=== PATIENT | female | born 1950 | race Caucasian/White ===

== ENCOUNTER 2016-06-01 17:43 | Inpatient (IN) | payer BC, MEDICARE ==
[2016-06-01] MEDS ORDERED: SODIUM CHLORIDE 0.9% 1,000 ML IV ONE (18:50)
[2016-06-01] MEDS ORDERED: METOCLOPRAMIDE 5 MG/ML 2 ML VIAL IVP STA (18:50)
--- NOTE | 2016-06-01 18:53 | ED ---
Nausea/Vomiting/Diarrhea HPI - General Source: patient, RN notes reviewed Mode of arrival: ambulatory Limitations: no limitations <Stephanie Nash - Last Filed: 06/01/16 22:25> <Kiel Juares - Last Filed: 06/01/16 22:52> - General Chief complaint: Nausea/Vomiting/Diarrhea Stated complaint: WEAKNESS, VOMITING X MONTHS, LOST 30 LBS Time Seen by Provider: 06/01/16 18:37 - History of Present Illness Initial comments: Patient is a 66-year-old female presents emergency room for evaluation of vomiting. Patient states been having episodes of nausea and vomiting since September. Patient states follow-up with her primary care provider. Patient states that at lab work done an ultrasound and they cannot figure out what's going on. Patient states she is improved with her primary care provider again next week. Patient states on her symptoms became worse. Patient states every time she swallows anything she throws it back up. Patient states she vomits up white foam. Patient denies stomach pain or chest pain. Patient states every time she vomits she has pain in her bilateral ovary area. Patient states she had tubal ligation done a few years ago. Patient denies pain or burning during urination, trouble urinating or blood in urine. Patient states she's lost 30 pounds since September. Patient states she feels weak all over. Patient denies fevers or chills. Patient is being prescribed any medication for this issue. (Stephanie Nash) - Related Data Home Medications Medication Instructions Recorded Confirmed Aspirin [Adult Low Dose Aspirin EC] 81 mg PO DAILY 06/01/16 06/01/16 Cholecalciferol [Vitamin D3] 400 unit PO DAILY 06/01/16 06/01/16 Sertraline [Zoloft] 100 mg PO DAILY 06/01/16 06/01/16 Allergies Allergy/AdvReac Type Severity Reaction Status Date / Time codeine AdvReac MIGRAINE Verified 06/01/16 19:23 Review of Systems ROS Other: All systems not noted in ROS Statement are negative. <Stephanie Nash - Last Filed: 06/01/16 22:25> ROS Other: All systems not noted in ROS Statement are negative. <Kiel Juares - Last Filed: 06/01/16 22:52> ROS Statement: Those systems with pertinent positive or pertinent negative responses have been documented in the HPI. Past Medical History Past Medical History: No Reported History History of Any Multi-Drug Resistant Organisms: None Reported Past Surgical History: Back Surgery Additional Past Surgical History / Comment(s): left knee replacement Past Psychological History: Depression Smoking Status: Current every day smoker Past Alcohol Use History: None Reported Past Drug Use History: None Reported <Stephanie Nash Terell - Last Filed: 06/01/16 22:25> General Exam Limitations: no limitations General appearance: alert, in no apparent distress Head exam: Present: atraumatic, normocephalic, normal inspection Eye exam: Present: normal appearance ENT exam: Present: normal exam Neck exam: Present: normal inspection Respiratory exam: Present: normal lung sounds bilaterally. Absent: respiratory distress Cardiovascular Exam: Present: regular rate, normal rhythm, normal heart sounds GI/Abdominal exam: Present: soft, tenderness (RLQ, LLQ), normal bowel sounds. Absent: distended, guarding, rebound, rigid Extremities exam: Present: normal inspection Back exam: Present: normal inspection Neurological exam: Present: alert, oriented X3, CN II-XII intact, normal gait Psychiatric exam: Present: normal affect, normal mood Skin exam: Present: warm, dry, intact, normal color. Absent: rash <Gemini Nashra Terell - Last Filed: 06/01/16 22:25> General appearance: alert, in no apparent distress Head exam: Present: atraumatic, normocephalic, normal inspection Eye exam: Present: normal appearance, PERRL, EOMI. Absent: scleral icterus, conjunctival injection, periorbital swelling ENT exam: Present: mucous membranes dry Neck exam: Present: normal inspection. Absent: tenderness, meningismus, lymphadenopathy Respiratory exam: Present: normal lung sounds bilaterally. Absent: respiratory distress, wheezes, rales, rhonchi, stridor Cardiovascular Exam: Present: regular rate, normal rhythm, normal heart sounds. Absent: systolic murmur, diastolic murmur, rubs, gallop, clicks GI/Abdominal exam: Present: soft, tenderness (Generalized), normal bowel sounds. Absent: distended, guarding, rebound, rigid Extremities exam: Present: normal inspection, full ROM, normal capillary refill. Absent: tenderness, pedal edema, joint swelling, calf tenderness Back exam: Present: normal inspection Neurological exam: Present: alert, oriented X3, CN II-XII intact Psychiatric exam: Present: normal affect, normal mood Skin exam: Present: warm, dry, intact, normal color. Absent: rash <Kiel Juares - Last Filed: 06/01/16 22:52> - General Exam Comments Initial Comments: Sitting in exam room, no acute distress. (Stephanie Nash) Course <Stephanie Nash - Last Filed: 06/01/16 22:25> <Kiel Juares - Last Filed: 06/01/16 22:52> Vital Signs 06/01/16 06/01/16 06/01/16 17:57 19:01 20:01 Temperature 99.2 F Pulse Rate 82 85 77 Respiratory 18 18 18 Rate Blood Pressure 121/66 125/68 109/64 O2 Sat by Pulse 99 99 97 Oximetry 06/01/16 06/01/16 21:00 22:11 Temperature 98.3 F Pulse Rate 77 77 Respiratory 18 18 Rate Blood Pressure 114/61 108/54 O2 Sat by Pulse 96 99 Oximetry - Reevaluation(s) Reevaluation #1: 06/01/16 22:51 Patient was remaining in checked will nausea vomiting multiple nausea medications, patient will be admitted for IV resuscitation and further evaluation of symptoms (Kiel Juares) Medical Decision Making - Lab Data Result diagrams: 06/01/16 19:00 06/01/16 19:00 <Stephanie Nash - Last Filed: 06/01/16 22:25> - Lab Data Result diagrams: 06/01/16 19:00 06/01/16 19:00 - Radiology Data Radiology results: report reviewed (CT pelvis is negative for acute disease), image reviewed <Kiel Juares - Last Filed: 06/01/16 22:52> - Medical Decision Making For female female here for intractable nausea vomiting, checked will develop pain, patient be admitted for further GI evaluation (Kiel Juares) - Lab Data Lab Results 06/01/16 06/01/16 06/01/16 Range/Units 19:00 19:00 19:00 WBC 8.1 (3.8-10.6) k/uL RBC 4.16 (3.80-5.40) m/uL Hgb 14.1 (11.4-16.0) gm/dL Hct 43.6 (34.0-46.0) % MCV 104.8 H (80.0-100.0) fL MCH 33.8 (25.0-35.0) pg MCHC 32.2 (31.0-37.0) g/dL RDW 14.3 (11.5-15.5) % Plt Count 234 (150-450) k/uL Neutrophils % 69 % Lymphocytes % 22 % Monocytes % 6 % Eosinophils % 1 % Basophils % 0 % Neutrophils # 5.6 (1.3-7.7) k/uL Lymphocytes # 1.8 (1.0-4.8) k/uL Monocytes # 0.4 (0-1.0) k/uL Eosinophils # 0.1 (0-0.7) k/uL Basophils # 0.0 (0-0.2) k/uL Macrocytosis Moderate Sodium 147 H (137-145) mmol/L Potassium 4.0 (3.5-5.1) mmol/L Chloride 112 H (98-107) mmol/L Carbon Dioxide 13 L (22-30) mmol/L Anion Gap 22 mmol/L BUN 59 H (7-17) mg/dL Creatinine 1.28 H (0.52-1.04) mg/dL Est GFR (MDRD) Af Amer 51 (>60 ml/min/1.73 sqM) Est GFR (MDRD) Non-Af 42 (>60 ml/min/1.73 sqM) Glucose 90 (74-99) mg/dL Osmolality (280-301) mosm/kg Plasma Lactic Acid Steven (0.7-2.0) mmol/L Calcium 10.4 H (8.4-10.2) mg/dL Magnesium 2.6 H (1.6-2.3) mg/dL Total Bilirubin 0.7 (0.2-1.3) mg/dL AST 87 H (14-36) U/L ALT 55 H (9-52) U/L Alkaline Phosphatase 62 (38-126) U/L Total Protein 8.8 H (6.3-8.2) g/dL Albumin 5.4 H (3.5-5.0) g/dL Amylase 53 (30-110) U/L Lipase 136 (23-300) U/L Urine Color Yellow Urine Appearance Clear (Clear) Urine pH 6.0 (5.0-8.0) Ur Specific Nora 1.015 (1.001-1.035) Urine Protein Trace H (Negative) Urine Glucose (UA) Negative (Negative) Urine Ketones 2+ H (Negative) Urine Blood Negative (Negative) Urine Nitrite Negative (Negative) Urine Bilirubin 1+ H (Negative) Urine Urobilinogen 4.0 (<2.0) mg/dL Ur Leukocyte Esterase Large H (Negative) Urine RBC 2 (0-5) /hpf Urine WBC 20 H (0-5) /hpf Ur Squamous Epith Cells 1 (0-4) /hpf Urine Mucus Rare H (None) /hpf Urine Osmolality (50-1400) mosm/kg Salicylates mg/dL Urine Opiates Screen (NotDetected) Ur Oxycodone Screen (NotDetected) Urine Methadone Screen (NotDetected) Ur Propoxyphene Screen (NotDetected) Acetaminophen ug/mL Ur Barbiturates Screen (NotDetected) U Tricyclic Antidepress (NotDetected) Ur Phencyclidine Scrn (NotDetected) Ur Amphetamines Screen (NotDetected) U Methamphetamines Scrn (NotDetected) U Benzodiazepines Scrn (NotDetected) Urine Cocaine Screen (NotDetected) U Marijuana (THC) Screen (NotDetected) 06/01/16 06/01/16 06/01/16 Range/Units 19:00 19:00 19:45 WBC (3.8-10.6) k/uL RBC (3.80-5.40) m/uL Hgb (11.4-16.0) gm/dL Hct (34.0-46.0) % MCV (80.0-100.0) fL MCH (25.0-35.0) pg MCHC (31.0-37.0) g/dL RDW (11.5-15.5) % Plt Count (150-450) k/uL Neutrophils % % Lymphocytes % % Monocytes % % Eosinophils % % Basophils % % Neutrophils # (1.3-7.7) k/uL Lymphocytes # (1.0-4.8) k/uL Monocytes # (0-1.0) k/uL Eosinophils # (0-0.7) k/uL Basophils # (0-0.2) k/uL Macrocytosis Sodium (137-145) mmol/L Potassium (3.5-5.1) mmol/L Chloride (98-107) mmol/L Carbon Dioxide (22-30) mmol/L Anion Gap mmol/L BUN (7-17) mg/dL Creatinine (0.52-1.04) mg/dL Est GFR (MDRD) Af Amer (>60 ml/min/1.73 sqM) Est GFR (MDRD) Non-Af (>60 ml/min/1.73 sqM) Glucose (74-99) mg/dL Osmolality 319 H (280-301) mosm/kg Plasma Lactic Acid Steven (0.7-2.0) mmol/L Calcium (8.4-10.2) mg/dL Magnesium (1.6-2.3) mg/dL Total Bilirubin (0.2-1.3) mg/dL AST (14-36) U/L ALT (9-52) U/L Alkaline Phosphatase (38-126) U/L Total Protein (6.3-8.2) g/dL Albumin (3.5-5.0) g/dL Amylase (30-110) U/L Lipase (23-300) U/L Urine Color Urine Appearance (Clear) Urine pH (5.0-8.0) Ur Specific Nora (1.001-1.035) Urine Protein (Negative) Urine Glucose (UA) (Negative) Urine Ketones (Negative) Urine Blood (Negative) Urine Nitrite (Negative) Urine Bilirubin (Negative) Urine Urobilinogen (<2.0) mg/dL Ur Leukocyte Esterase (Negative) Urine RBC (0-5) /hpf Urine WBC (0-5) /hpf Ur Squamous Epith Cells (0-4) /hpf Urine Mucus (None) /hpf Urine Osmolality 623 (50-1400) mosm/kg Salicylates <1.0 mg/dL Urine Opiates Screen Not Detected (NotDetected) Ur Oxycodone Screen Not Detected (NotDetected) Urine Methadone Screen Not Detected (NotDetected) Ur Propoxyphene Screen Not Detected (NotDetected) Acetaminophen <10.0 ug/mL Ur Barbiturates Screen Not Detected (NotDetected) U Tricyclic Antidepress Not Detected (NotDetected) Ur Phencyclidine Scrn Not Detected (NotDetected) Ur Amphetamines Screen Not Detected (NotDetected) U Methamphetamines Scrn Not Detected (NotDetected) U Benzodiazepines Scrn Not Detected (NotDetected) Urine Cocaine Screen Not Detected (NotDetected) U Marijuana (THC) Screen Detected H (NotDetected) 06/01/16 Range/Units 19:45 WBC (3.8-10.6) k/uL RBC (3.80-5.40) m/uL Hgb (11.4-16.0) gm/dL Hct (34.0-46.0) % MCV (80.0-100.0) fL MCH (25.0-35.0) pg MCHC (31.0-37.0) g/dL RDW (11.5-15.5) % Plt Count (150-450) k/uL Neutrophils % % Lymphocytes % % Monocytes % % Eosinophils % % Basophils % % Neutrophils # (1.3-7.7) k/uL Lymphocytes # (1.0-4.8) k/uL Monocytes # (0-1.0) k/uL Eosinophils # (0-0.7) k/uL Basophils # (0-0.2) k/uL Macrocytosis Sodium (137-145) mmol/L Potassium (3.5-5.1) mmol/L Chloride (98-107) mmol/L Carbon Dioxide (22-30) mmol/L Anion Gap mmol/L BUN (7-17) mg/dL Creatinine (0.52-1.04) mg/dL Est GFR (MDRD) Af Amer (>60 ml/min/1.73 sqM) Est GFR (MDRD) Non-Af (>60 ml/min/1.73 sqM) Glucose (74-99) mg/dL Osmolality (280-301) mosm/kg Plasma Lactic Acid Steven <0.5 L (0.7-2.0) mmol/L Calcium (8.4-10.2) mg/dL Magnesium (1.6-2.3) mg/dL Total Bilirubin (0.2-1.3) mg/dL AST (14-36) U/L ALT (9-52) U/L Alkaline Phosphatase (38-126) U/L Total Protein (6.3-8.2) g/dL Albumin (3.5-5.0) g/dL Amylase (30-110) U/L Lipase (23-300) U/L Urine Color Urine Appearance (Clear) Urine pH (5.0-8.0) Ur Specific Nora (1.001-1.035) Urine Protein (Negative) Urine Glucose (UA) (Negative) Urine Ketones (Negative) Urine Blood (Negative) Urine Nitrite (Negative) Urine Bilirubin (Negative) Urine Urobilinogen (<2.0) mg/dL Ur Leukocyte Esterase (Negative) Urine RBC (0-5) /hpf Urine WBC (0-5) /hpf Ur Squamous Epith Cells (0-4) /hpf Urine Mucus (None) /hpf Urine Osmolality (50-1400) mosm/kg Salicylates mg/dL Urine Opiates Screen (NotDetected) Ur Oxycodone Screen (NotDetected) Urine Methadone Screen (NotDetected) Ur Propoxyphene Screen (NotDetected) Acetaminophen ug/mL Ur Barbiturates Screen (NotDetected) U Tricyclic Antidepress (NotDetected) Ur Phencyclidine Scrn (NotDetected) Ur Amphetamines Screen (NotDetected) U Methamphetamines Scrn (NotDetected) U Benzodiazepines Scrn (NotDetected) Urine Cocaine Screen (NotDetected) U Marijuana (THC) Screen (NotDetected) Disposition Decision Date: 06/01/16 <Stephanie Nash - Last Filed: 06/01/16 22:25> <Kiel Juares - Last Filed: 06/01/16 22:52> Clinical Impression: Dehydration, Intractable nausea and vomiting, UTI (urinary tract infection) Disposition: ADMITTED IP TO THIS [facility] Condition: Stable
[2016-06-01 19:15] LABS: Appearance,Urine Clear (Clear); Bilirubin,Urine 1+ (Negative); Glucose,Urine (UA) Negative (Negative); Ketones,Urine 2+ (Negative); Leukocyte Esterase,Urine Large (Negative); Mucus,Urine Rare /hpf; Nitrite,Urine Negative (Negative); Particle Count 3649; Protein,Urine Trace (Negative); RBC,Urine 2 /hpf (0-5); Specific Gravity,Urine 1.015 (1.001-1.035); Squamous Epithelial Cell,Urine 1 /hpf (0-4); UA Billing (MACRO vs. MICRO) MICRO; WBC,Urine 20 /hpf (0-5)
[2016-06-01 19:17] LABS: Basophils % (A) 0 %; CH 34.5; CHCM 33.1; Eosinophils # (A) 0.1 k/uL (0-0.7); Eosinophils % (A) 1 %; HCT 43.6 % (34.0-46.0); HDW 2.53; HGB 14.1 gm/dL (11.4-16.0); Luc # (Auto) 0.17; Luc % (Auto) 2; Lymphocytes # (A) 1.8 k/uL (1.0-4.8); Lymphocytes % (A) 22 %; MCH 33.8 pg (25.0-35.0); MCHC 32.2 g/dL (31.0-37.0); MCV 104.8 fL (80.0-100.0); Macrocytosis Moderate; Mean Platelet Volume 7.4; Monocytes # (A) 0.4 k/uL (0-1.0); Monocytes % (A) 6 %; Neutrophils # (A) 5.6 k/uL (1.3-7.7); Neutrophils % (A) 69 %; RBC 4.16 m/uL (3.80-5.40); RDW 14.3 % (11.5-15.5); WBC 8.1 k/uL (3.8-10.6); WBC (Perox) 8.18
[2016-06-01 19:24] LABS: Calcium 10.4 mg/dL (8.4-10.2); Magnesium 2.6 mg/dL (1.6-2.3); Total Bilirubin 0.7 mg/dL (0.2-1.3); Total Protein 8.8 g/dL (6.3-8.2)
[2016-06-01 20:10] LABS: Acetaminophen <10.0 ug/mL; Salicylate <1.0 mg/dL
--- NOTE | 2016-06-01 20:25 | CT ---
EXAMINATION TYPE: CT abdomen pelvis wo con DATE OF EXAM: 06/01/2016 8:10 PM COMPARISON: NONE HISTORY: Nausea and vomiting for 6+ months with aprox 30lb wieght loss CT DLP: 285.6 mGycm Automated exposure control for dose reduction was used. TECHNIQUE: Helical acquisition of images was performed from the lung bases through the pelvis. FINDINGS: Lung bases are clear. There is no pleural effusion. Heart size is normal. Liver spleen pancreas gallbladder appear normal. Bile ducts are not dilated. There is bulkiness of th e adrenal glands consistent with myelolipoma. Kidneys show no hydronephrosis. There is no evidence of a renal calculus. There is no retroperitoneal adenopathy. There is no ascites. I see no intestinal wall thickening. There are no dilated loops. Bl adder distends smoothly. Appendix appears normal. There are spondylotic changes in the lumbar spine. IMPRESSION: NO SIGN OF ACUTE ABDOMEN AND PELVIS. LOW DENSITY ADRENAL MASSES MEASURE UP TO 2 CM CONSISTENT WITH MY ELOLIPOMA.
[2016-06-01] MEDS ORDERED: NALOXONE 0.4 MG/ML 1 ML VIAL IV PRN (22:11)
[2016-06-01] MEDS: SODIUM CHLORIDE 0.9% 1,000 ML IV SCH (22:19)
[2016-06-01] MEDS ORDERED: LEVOFLOXACIN 250MG-D5W PMX 250 MG in DEXTROSE/WATER 1 50ML.BAG IVPB STA (22:26)
[2016-06-01] MEDS: ONDANSETRON 4 MG/2 ML VIAL IVP PRN (23:28)
[2016-06-01 23:50] VITALS: BMI 22.4
[2016-06-02] MEDS: SODIUM CHLORIDE 0.9% 1,000 ML IV SCH ×3 (00:03→23:30)
[2016-06-02] MEDS ORDERED: diphenhydrAMINE 50 MG/ML 1 ML VIAL ONE (00:45)
[2016-06-02 07:40] LABS: Basophils % (A) 0 %; CHCM 33.1; Eosinophils # (A) 0.1 k/uL (0-0.7); Eosinophils % (A) 2 %; HCT 36.7 % (34.0-46.0); HDW 2.69; HGB 12.2 gm/dL (11.4-16.0); Luc # (Auto) 0.16; Luc % (Auto) 3; Lymphocytes # (A) 1.4 k/uL (1.0-4.8); Lymphocytes % (A) 24 %; MCH 34.3 pg (25.0-35.0); MCHC 33.2 g/dL (31.0-37.0); MCV 103.2 fL (80.0-100.0); Macrocytosis Slight; Mean Platelet Volume 7.9; Monocytes # (A) 0.4 k/uL (0-1.0); Monocytes % (A) 8 %; Neutrophils # (A) 3.7 k/uL (1.3-7.7); Neutrophils % (A) 64 %; RBC 3.55 m/uL (3.80-5.40); RDW 13.8 % (11.5-15.5); WBC 5.8 k/uL (3.8-10.6); WBC (Perox) 6.42
[2016-06-02 07:49] LABS: ALT 48 U/L (9-52); AST 61 U/L (14-36); Alkaline Phosphatase 47 U/L (38-126); Anion Gap 11 mmol/L; Blood Urea Nitrogen 52 mg/dL (7-17); Carbon Dioxide 16 mmol/L (22-30); Chloride 116 mmol/L (98-107); Glucose 81 mg/dL (74-99); Non-African American GFR(MDRD) 51 (>60 ml/min/1.73 sqM); Potassium 3.7 mmol/L (3.5-5.1); Sodium 143 mmol/L (137-145); Total Bilirubin 0.6 mg/dL (0.2-1.3)
[2016-06-02] MEDS: ACETAMINOPHEN TAB 325 MG TAB PO PRN ×2 (15:10→20:15)
[2016-06-02] MEDS: ONDANSETRON 4 MG/2 ML VIAL IVP PRN (17:25)
[2016-06-02] MEDS: PANTOPRAZOLE 40 MG/10 ML VIAL IVP SCH (17:25)
[2016-06-02 18:02] LABS: Hepatitis B Surface Ag Index 0.06
[2016-06-02 18:07] LABS: Hepatitis B Core IgM Index 0.05
[2016-06-02 18:19] LABS: Hepatitis C Virus IgG Index 0.01
--- NOTE | 2016-06-02 18:27 | XR ---
EXAMINATION TYPE: XR chest 1V DATE OF EXAM: 06/02/2016 6:21 PM COMPARISON: 03/19/2012 HISTORY: Heart failure TECHNIQUE: Single frontal view of the chest is obtained. FINDINGS: Heart and mediastinum are normal. Lungs are clear. Diaphragm is normal. Bony thorax is int act. IMPRESSION: Normal chest. No change.
[2016-06-02 18:32] LABS: Hepatitis C Virus IgG Ab Negative (Negative)
[2016-06-02 18:43] LABS: C Reactive Protein <5.0 mg/L (<10.0)
--- NOTE | 2016-06-02 21:30 | HP ---
DATE OF ADMISSION: 06/01/2016 CHIEF COMPLAINT: Nausea and vomiting, abdominal pain, dysphagia. HISTORY OF PRESENT ILLNESS: This 66-year-old woman with a past medical history of multiple medical problems, including history of myocardial infarction, history of cardiac catheterization, history of back surgery, degenerative joint disease, history of depression, history of being followed by Dr. Cuenca in the outpatient setting, was having incessant vomiting for the last several months. The patient apparently was taking care of her with dementia. The patient also has back pain also. Because of significant vomiting, the patient unable to keep anything down. The patient had weight loss up to 30 pounds according to her. The patient came to [facility]. The patient also complains of dysphagia and feeling like solids being blocked at the level of the throat but the patient is able to drink water. There is no history of fever, rigors or chills. No history of any headache, loss of consciousness or seizures. After admission, the patient had multiple other laboratories abnormalities including acute renal failure and some acidosis as well as increased AST, ALT, and as well as features of UTI and THC in the drug screen also. There is no history of any fever, rigors. No history of headache, loss of consciousness or seizures. PAST MEDICAL HISTORY: History of myocardial infarction, history of anxiety, DJD, history of depression, nicotine dependence. Medications include: 1. Zoloft 100 mg p.o. daily. 2. Vitamin D3, 400 daily. 3. Aspirin 81 mg daily. ALLERGIES: LEVAQUIN AND CODEINE. FAMILY HISTORY: History of congestive heart failure, CAD, dementia in the family. SOCIAL HISTORY: History of smoking on a daily basis. History of THC. REVIEW OF SYSTEMS: ENT: No diminishing hearing. Diminished vision. CARDIOVASCULAR: No angina or palpitations. RESPIRATORY: No cough or hemoptysis. GI: As mentioned earlier. : No dysuria. Nervous system: No numbness, weakness. Allergy/immunology: No asthma or hayfever. MUSCULOSKELETAL: As mentioned earlier. HEMATOLOGY/ONCOLOGY: No history of anemia. ENDOCRINE: No history of diabetes, hypertension. CONSTITUTIONAL: As mentioned earlier. DERMATOLOGY: Negative. RHEUMATOLOGY: Negative. PSYCHIATRY: As mentioned earlier. PHYSICAL EXAMINATION: The patient is alert and oriented times three. Pulse 78. Blood pressure 73/51. Respiratory rate 16, temperature 98.4, pulse ox 98% on room air. HEENT: Conjunctivae normal. Oral mucosa moist. NECK: No jugular venous distention. No carotid bruit. No lymph node enlargement. CARDIOVASCULAR: S1, S2 muffled. No S3, no S4. RESPIRATORY: Breath sounds diminished at the bases. A few scattered rhonchi and crackles. ABDOMEN: Soft, scaphoid. Minimal discomfort and tenderness in the epigastric region. No guarding. No rigidity. No mass palpable. Bowel sounds present. Bowel sounds are normal. No ascites. No bruit. Legs: No edema. No swelling. Nervous system: Higher functions as mentioned. Moves all 4 limbs. No focal motor or sensory deficits. LYMPHATICS: No lymph nodes palpable in the neck, axillae or groin. SKIN: No ulcer, rash or bleeding. Nervous system: Cranial nerves 2 thru 12 grossly intact. LABS: WBC 5.8, hemoglobin 12.2, MCV 103.2, sodium 143, potassium 3.7, creatinine 1.28, magnesium 2.6, AST 87, ALT 55, albumin is 5.4. UA noted. ASSESSMENT: 1. Severe incessant vomiting and unable to keep anything down with significant dehydration and as well as weight loss, possibly peptic ulcer disease, rule out gastritis. 2. Acute renal failure, possible prerenal with acute tubular necrosis. 3. Increased AST, ALT, hepatitis of undetermined etiology. 4. Increased calcium secondary to dehydration. 5. Increased sodium secondary to dehydration. 6. Recent weight loss. 7. Increased chloride. 8. Decreased CO2. 9. Increased MCV undetermined etiology. 10. Urinary tract infection. 11. Positive THC. 12. Continued ongoing nicotine dependence. 13. History of myocardial infarction. 14. History of coronary artery disease. 15. History of degenerative joint disease. 16. History of back pain and fusion L4-5. 17. Depression not otherwise specified. 18. FULL CODE. RECOMMENDATIONS AND DISCUSSION: In this 66 -year-old woman who presented with multiple complex medical issues, we will monitor the patient closely, continue the current medications, continue symptomatic treatment. I recommend to monitor the patient closely. IV fluids. Repeat labs. Otherwise CAT scan has been ordered. I will also do a chest x-ray, lab cultures. Otherwise, I would also recommend EGD by gastroenterology. Discussed with staff and the patient. Prognosis guarded. Further recommendations to follow. A copy of dictation being forwarded to Dr. Cuenca who is the primary care physician. CJ
[2016-06-02] MEDS ORDERED: SODIUM CHLORIDE 0.9% 250 ML IV ONE (21:35)
[2016-06-03] MEDS: ONDANSETRON 4 MG/2 ML VIAL IVP PRN ×2 (01:20→07:12)
[2016-06-03] MEDS ORDERED: IV FLUID CONTINUATION 1,000 ML IV ONE (09:02)
[2016-06-03] MEDS ORDERED: LIDOCAINE 1% INJ 10MG/ML (20 ML MDV) ONE (09:04)
[2016-06-03] MEDS ORDERED: PROPOFOL 10 MG/ML 20 ML VIAL IV ONE (09:04)
[2016-06-03] MEDS ORDERED: SODIUM CHLORIDE 0.9% 1,000 ML IV ONE (09:14)
--- NOTE | 2016-06-03 09:40 | P.CONS ---
History of Present Illness - Reason for Consult Consult date: 06/03/16 Possible EGD - Chief Complaint Nausea, vomiting and weight loss - History of Present Illness The patient is a 66-year-old female who presented to the emergency room with complaints of nausea and vomiting that started in September 2015. She has also been complaining of difficulty swallowing and lost 30 pounds over that period of time. The patient symptoms has worsened around [facility] that prompted her to come to the emergency room. She denied any vomiting of blood or change in the color of her stools. Her symptoms are now happening every time she eats and she describes her vomiting to be froth-like. Her previous workup included an ultrasound which was normal. She was not on any specific medications. Laboratory workup and CT of the abdomen was performed in the hospital which was reviewed. Review of Systems Constitutional: Denied fever or chills. Lost 30 pounds since September 2015 Neurologic: No headaches, double vision or other sensory or motor changes Cardiopulmonary: No chest pains, shortness of breath or palpitations. History of AHD Gastrointestinal: See present illness above Genitourinary: No hematuria, dysuria or frequency Skin: No rashes Endocrine: No history of diabetes or thyroid disease Musculoskeletal: No joint pain or swelling. History of DJD Hematologic: No anemia or bleeding tendency Psychiatric: No anxiety, has history of depression Past Medical History Past Medical History: Myocardial Infarction ([place]) Additional Past Medical History / Comment(s): [place] with clean cath 2010- Pt sees Dr farmer Last Myocardial Infarction Date:: 2010 History of Any Multi-Drug Resistant Organisms: None Reported Past Surgical History: Back Surgery Additional Past Surgical History / Comment(s): left knee replacement 2003, fusion of L4-L5 from broken back, tubal ligation 1975, tendon release right elbow Past Anesthesia/Blood Transfusion Reactions: No Reported Reaction Past Psychological History: Depression Smoking Status: Current every day smoker Past Alcohol Use History: None Reported Past Drug Use History: None Reported - Past Family History Mother Family Medical History: Congestive Heart Failure (CHF), Coronary Artery Disease (CAD), Dementia Additional Family Medical History / Comment(s): alzheimers Sister(s) Family Medical History: Cancer Additional Family Medical History / Comment(s): breast cancer Brother(s) Family Medical History: Renal Disease Additional Family Medical History / Comment(s): kidney failure Medications and Allergies Home Medications Medication Instructions Recorded Confirmed Type Aspirin [Adult Low Dose Aspirin EC] 81 mg PO DAILY 06/01/16 06/01/16 History Cholecalciferol [Vitamin D3] 400 unit PO DAILY 06/01/16 06/01/16 History Sertraline [Zoloft] 100 mg PO DAILY 06/01/16 06/01/16 History Allergies Allergy/AdvReac Type Severity Reaction Status Date / Time levofloxacin [From Levaquin] Allergy Itching Verified 06/02/16 00:50 codeine AdvReac MIGRAINE Verified 06/01/16 19:23 Physical Exam Vitals: Vital Signs Temp Pulse Resp BP Pulse Ox 06/03/16 08:14 97.9 F 54 L 18 104/56 98 06/03/16 07:00 97.9 F 54 L 18 104/56 98 06/03/16 00:00 71 16 06/02/16 23:00 97.4 F L 71 16 97/53 97 06/02/16 15:09 82 100/57 06/02/16 15:00 98 F 78 16 73/51 98 Intake and Output 06/02/16 06/03/16 06/03/16 22:59 06:59 14:59 Intake Total 590 590 Balance 590 590 Intake: Oral 590 590 Other: Voiding Method Toilet # Voids 2 2 Weight 65 kg General: Appears stated age, very pleasant in no acute distress Head and neck: Normocephalic and atraumatic, conjunctivae pink and sclerae not icteric. No masses in the neck or tracheal shifts. No adenopathy or thyromegaly Lungs: Clear to auscultation with no dullness to percussion Heart: Regular, no abnormal sounds, murmurs, gallops or friction rubs Abdomen: Soft, no masses or organomegalies or tenderness. Bowel sounds present Extremities: No clubbing, cyanosis or edema Neurologic: Alert and oriented 3. Cranial nerves grossly intact, no gross sensory or motor abnormalities Results CBC & Chem 7: 06/02/16 07:26 06/02/16 07:26 Assessment and Plan (1) Intractable nausea and vomiting Status: Acute Plan: This 66-year-old female with intractable nausea and vomiting and weight loss could have peptic ulcer disease or malignancy. Other possibilities include gastritis and esophagitis. Computed tomography scan not revealing. Agree with your current management. I would go ahead and proceed with an upper endoscopy. Further plans based on the findings.
[2016-06-03] MEDS: SERTRALINE 100 MG TAB PO SCH (09:41)
[2016-06-03] MEDS: CHOLECALCIFEROL 400 UNIT TAB PO SCH (09:41)
[2016-06-03] MEDS: PANTOPRAZOLE 40 MG/10 ML VIAL IVP SCH ×2 (09:41→18:33)
[2016-06-03] MEDS: SODIUM CHLORIDE 0.9% 1,000 ML IV SCH ×2 (09:42→18:34)
--- NOTE | 2016-06-03 09:47 | P.PCN ---
Date of Procedure: 06/03/16 Procedure(s) Performed: Procedure: Esophagogastroduodenoscopy and biopsy. Preoperative diagnosis: Nausea, vomiting and weight loss. Postoperative diagnosis: 1. Small sliding hiatal hernia with no obvious esophagitis or complicated reflux disease. 2. Mild gastritis and duodenitis with no bleeding or gastric outlet obstruction. 3. Multiple biopsies obtained from the duodenum, antrum and esophagus. Preparation and sedation: Was provided by anesthesia. Brief clinical history: The patient is a 66-year-old female who presented to the emergency room with complaints of nausea and vomiting that started in September 2015. She has also been complaining of difficulty swallowing and lost 30 pounds over that period of time. The patient symptoms has worsened around [place] that prompted her to come to the emergency room. She denied any vomiting of blood or change in the color of her stools. Her symptoms are now happening every time she eats and she describes her vomiting to be froth-like. Her previous workup included an ultrasound which was normal. She was not on any specific medications. Laboratory workup and CT of the abdomen was performed in the hospital and did not provide any definitive answers. This evaluation is to assess for peptic ulcer disease, neoplasia or other pathology. The details are summarized in the history and physical and dictated consultations. Procedure: With the patient on her left lateral decubitus position and after informed consent and adequate sedation, I passed the Olympus-GIF 160 video upper endoscope through the cricopharyngeus down the esophagus. GE junction was around 39 cm from the incisors and there was a small sliding hiatal hernia. There was no obvious esophagitis or complicated reflux disease or any tumors or other pathology. The endoscope was then passed into the stomach which was insufflated with air and inspected in detail including the retroflex view in the cardia. There was erythema and mottling and some friability in the antrum and the immediate prepyloric area but no obvious erosions or ulcers. Pyloric channel did not show any ulcers. Duodenal bulb showed erythema friability and a small ulceration and couple small erosions but no bleeding or obstruction. Post bulbar area and descending duodenum appeared within normal limits. I obtained biopsies from the duodenum, antrum and esophagus then the endoscope was withdrawn. The patient tolerated the procedure well. Plan: The patient was reassured. Will await biopsy results. In the meantime, would continue PPI and symptomatic treatment. Further plans based on her course and biopsy results.
[2016-06-04 07:56] VITALS: BP 116/67; PULSE 65; RESP 18; TEMP 98.1
[2016-06-04] MEDS ORDERED: PANTOPRAZOLE 40 MG TABLET PO SCH (09:00)
[2016-06-04] MEDS: PANTOPRAZOLE 40 MG/10 ML VIAL IVP SCH (09:01)
[2016-06-04] MEDS: CHOLECALCIFEROL 400 UNIT TAB PO SCH (09:01)
[2016-06-04] MEDS: SERTRALINE 100 MG TAB PO SCH (09:01)
[2016-06-04] MEDS: SODIUM CHLORIDE 0.9% 1,000 ML IV SCH ×2 (09:01→09:02)
--- NOTE | 2016-06-04 09:49 | PN ---
DATE OF SERVICE: 06/03/2016 This 66-year-old woman admitted with nausea, vomiting, abdominal discomfort had EGD by Dr. Jacob today. EGD showed small sliding hiatal hernia, mild gastritis and duodenitis and as well as multiple biopsies were obtained. No chest pain. No palpitations. No fever. On exam, alert and oriented times three. Pulse is 54, blood pressure 105/56, respirations 18, temperature 97.9, pulse ox 98% on room air. HEENT: Conjunctivae normal. Oral mucosa moist. CARDIOVASCULAR: S1, S2 muffled. RESPIRATORY: Breath sounds diminished at the bases. No rhonchi, no crackles. ABDOMEN: Soft. Nontender. No mass palpable. Legs: No edema. No swelling. Nervous system: Higher function as mentioned earlier. Moves all four limbs. No focal deficits. LYMPHATICS: No lymph nodes palpable in the neck, axillae or groin. SKIN: No ulcer, rash or bleeding. Lab review of the chart at this time show WBC 5.2, MCV 103.2, CO2 16. AST 61. ASSESSMENT: 1. Severe incessant vomiting and nausea, unable to keep anything down with significant dehydration as well as weight loss for several months status post EGD showing acute gastritis and duodenitis. 2. Acute renal failure, possible prerenal with acute tubular necrosis. 3. Increased. AST, ALT hepatitis, of undetermined etiology. 4. Increased calcium secondary to dehydration. 5. Increased sodium secondary to dehydration. 6. Recent weight loss. 7. Increased chloride. 8. Decreased CO2. 9. Increased MCV of undetermined etiology. 10. Urinary tract infection. 11. Possible THC. 12. Continued ongoing nicotine dependence. 13. History of myocardial infarction. 14. History of coronary artery disease. 15. History of degenerative joint disease. 16. History of back pain and fusion L4-5. 17. Depression, not otherwise specified. 18. FULL CODE. Recommendations and discussion: In this 66 -year-old woman who presented with multiple complex medical issues, we will monitor the patient closely, continue the current medications, continue symptomatic treatment. Otherwise, continue Protonix IV. The patient is complaining of some epigastric and lower chest pain. Recommend troponin and as well as EKG. Closely monitor. Further recommendations to follow.
[2016-06-04 11:49] LABS: Basophils % (A) 0 %; CH 34.6; CHCM 33.5; Eosinophils # (A) 0.1 k/uL (0-0.7); Eosinophils % (A) 3 %; HCT 32.4 % (34.0-46.0); HDW 2.66; HGB 10.8 gm/dL (11.4-16.0); Luc # (Auto) 0.12; Luc % (Auto) 3; Lymphocytes # (A) 1.1 k/uL (1.0-4.8); Lymphocytes % (A) 25 %; MCH 34.5 pg (25.0-35.0); MCHC 33.3 g/dL (31.0-37.0); MCV 103.7 fL (80.0-100.0); Macrocytosis Slight; Mean Platelet Volume 8.4; Monocytes # (A) 0.4 k/uL (0-1.0); Monocytes % (A) 10 %; Neutrophils # (A) 2.7 k/uL (1.3-7.7); Neutrophils % (A) 61 %; RBC 3.13 m/uL (3.80-5.40); RDW 13.6 % (11.5-15.5); WBC 4.5 k/uL (3.8-10.6); WBC (Perox) 4.44
[2016-06-04 12:07] LABS: Anion Gap 4 mmol/L; Blood Urea Nitrogen 21 mg/dL (7-17); Calcium 9.1 mg/dL (8.4-10.2); Carbon Dioxide 20 mmol/L (22-30); Chloride 119 mmol/L (98-107); Glucose 89 mg/dL (74-99); Non-African American GFR(MDRD) 58 (>60 ml/min/1.73 sqM); Potassium 4.6 mmol/L (3.5-5.1); Sodium 143 mmol/L (137-145)
[2016-06-05 05:37] LABS: HIV-1/HIV-2 Ab Screen NONREAC (NON REAC)
--- NOTE | 2016-06-05 14:04 | DS ---
DATE OF ADMISSION: 06/01/2016 DATE OF DISCHARGE: 06/04/2016 DATE OF SERVICE: 06/04/2016 FINAL DIAGNOSES: 1. Severe incessant vomiting and nausea, possibly acute severe gastritis and duodenitis, status post EGD. 2. Acute renal failure, possible prerenal with acute tubular necrosis and dehydration, increased AST, ALT, hepatitis of undetermined etiology, stable. 3. Increased calcium secondary to dehydration, present on admission. 4. Increased sodium secondary to dehydration. 5. Recent weight loss. 6. Decrease chloride. 7. Decreased CO2. 8. Increased MCV of undetermined etiology. 9. Urinary tract infection. 10. Positive THC. 11. Continued ongoing nicotine dependence. 12. History of myocardial infarction. 13. History of coronary artery disease. 14. History of degenerative joint disease. 15. History of back pain and fusion L4. 16. History of depression, not otherwise specified. 17. FULL CODE. DISCHARGE DISPOSITION: The patient will be discharged in a stable condition with guarded prognosis. HISTORY OF PRESENT ILLNESS: This is a 66-year-old woman with a past medical history of multiple medical problems admitted with incessant nausea, vomiting, unable to keep anything down. EGD showed gastritis and duodenitis. Treated symptomatically, improved significantly. On exam, vitals are stable. CARDIOVASCULAR SYSTEM: S1, S2. ABDOMEN: Soft. NERVOUS SYSTEM: No focal deficits. The patient will be discharged in a stable condition with guarded prognosis. 1. Diet is soft, bland. 2. Activity limited until followup. 3. Follow up with Dr. Cuenca as advised. Medications are as follows: 1. Tylenol 650 q.6 p.r.n. 2. Ceftin 500 mg p.o. b.i.d. for 3 days. 3. Vitamin D3 400 units daily. 4. Zofran 4 mg q.6 p.r.n. 5. Protonix 40 mg p.o. b.i.d. 6. Zoloft 100 mg daily.
== END 2016-06-04 14:02 | disposition home or self-care (01) | DRG 391 ==
LOC: EC 17:43 → 5MS5E 22:36
PROVIDERS: ADMIT Hospitalist; ATTEND Hospitalist
PROC: 0DB68ZX Excision of Stomach, Via Natural or Artificial Opening Endoscopic, Diagnostic (ICD-10-PCS; 2016-06-03)
PROC: 0DB58ZX Excision of Esophagus, Via Natural or Artificial Opening Endoscopic, Diagnostic (ICD-10-PCS; 2016-06-03)
PROC: 0DB98ZX Excision of Duodenum, Via Natural or Artificial Opening Endoscopic, Diagnostic (ICD-10-PCS; principal; 2016-06-03 08:30)
DX: K29.00 Acute gastritis without bleeding (principal); N17.0 Acute kidney failure with tubular necrosis; N39.0 Urinary tract infection, site not specified; E86.0 Dehydration; F32.9 Major depressive disorder, single episode, unspecified; F17.200 Nicotine dependence, unspecified, uncomplicated; I25.10 Atherosclerotic heart disease of native coronary artery without angina pectoris; I25.2 Old myocardial infarction; K29.80 Duodenitis without bleeding; K44.9 Diaphragmatic hernia without obstruction or gangrene; K75.9 Inflammatory liver disease, unspecified; R13.10 Dysphagia, unspecified; F41.9 Anxiety disorder, unspecified; M19.90 Unspecified osteoarthritis, unspecified site; Z79.82 Long term (current) use of aspirin; Z79.899 Other long term (current) drug therapy; Z96.652 Presence of left artificial knee joint; Z88.5 Allergy status to narcotic agent; Z98.1 Arthrodesis status; Z82.49 Family history of ischemic heart disease and other diseases of the circulatory system
CPT/HCPCS: 36415; 43239; 71010; 74176; 80048; 80053; 80074; 80306; 81001; 82150; 82533; 83520; 83605; 83690; 83735; 83930; 83935; 84484; 85025; 85652; 86140; 87040; 87389; 88305; 88342; 93005; 96361; 96374; 99285

== ENCOUNTER → 2016-06-08 | Outpatient (CLI) | payer MEDICARE ==
[2016-06-08 16:21] LABS: ALT 26 U/L (9-52); AST 25 U/L (14-36); Alkaline Phosphatase 47 U/L (38-126); Anion Gap 13 mmol/L; Blood Urea Nitrogen 20 mg/dL (7-17); Calcium 9.6 mg/dL (8.4-10.2); Carbon Dioxide 16 mmol/L (22-30); Chloride 114 mmol/L (98-107); Glucose 111 mg/dL (74-99); Non-African American GFR(MDRD) >60 (>60 ml/min/1.73 sqM); Potassium 3.3 mmol/L (3.5-5.1); Sodium 143 mmol/L (137-145); Total Bilirubin 0.6 mg/dL (0.2-1.3); Total Protein 6.9 g/dL (6.3-8.2)
[2016-06-08 16:24] LABS: CHCM 33.8; HCT 33.6 % (34.0-46.0); HDW 2.64; HGB 11.3 gm/dL (11.4-16.0); MCHC 33.7 g/dL (31.0-37.0); MCV 100.8 fL (80.0-100.0); Mean Platelet Volume 7.5; RBC 3.34 m/uL (3.80-5.40); RDW 13.5 % (11.5-15.5); WBC 7.4 k/uL (3.8-10.6)
== END ==
LOC: LABWHC1 15:44
PROVIDERS: ATTEND Family Medicine
DX: N17.9 Acute kidney failure, unspecified (principal)
CPT/HCPCS: 36415; 80053; 85027

== ENCOUNTER 2016-08-14 10:56 | Day surgery (SDC) | payer MEDICARE ==
[2016-08-09 16:33] VITALS: BMI 21.9
[2016-08-14 11:19] VITALS: TEMP 97.8
[2016-08-14] MEDS: LACTATED RINGERS 1,000 ML IV SCH ×2 (11:28→13:11)
[2016-08-14] MEDS ORDERED: PROPOFOL 10 MG/ML 20 ML VIAL IV ONE (13:12)
--- NOTE | 2016-08-14 13:44 | P.PCN ---
Date of Procedure: 08/14/16 Preoperative Diagnosis: Postoperative Diagnosis: Procedure(s) Performed: Procedure: Total colonoscopy. Preoperative diagnosis: Abdominal pain. Postoperative diagnosis: Mild sigmoid diverticulosis with no evidence of acute diverticulitis, strictures, polyps or cancer. Preparation: HalfLytely prep. Sedation: Was provided by anesthesia. Brief clinical history: The patient is a 66-year-old female who is referred for this evaluation because of abdominal pains. The patient was evaluated with an upper endoscopy in May of this year for symptoms of difficulty swallowing, nausea and vomiting and she was found to have small sliding hiatal hernia and mild gastritis. Her last colonoscopy was many years ago. This evaluation is to assess for neoplasia or other pathology. Procedure: With the patient on her left lateral decubitus position and after informed consent and adequate sedation, the perianal area was inspected and it did not show any fissures or fistulas. There were no masses felt on digital rectal examination. The Olympus CFQ 160L video colonoscope was then inserted in the rectum in the usual fashion and advanced to the cecum. The mucosa appeared healthy. No polyps or tumors were seen. There was mild diverticular disease noted in the sigmoid with no evidence of acute diverticulitis or strictures. I retroflexed the endoscope in the rectum before the endoscope was withdrawn. The patient tolerated the procedure well. Plan: The patient was reassured. Discussed dietary measures. She will follow- up with you as planned and I recommended repeat exam in 10 years. Implants: Indications for Procedure: Operative Findings: Description of Procedure:
[2016-08-14 14:01] VITALS: BP 117/76; PULSE 78; RESP 18
== END 2016-08-14 14:29 | disposition home or self-care (01) ==
LOC: ORWHC2ENDO 10:56
DX: K57.30 Diverticulosis of large intestine without perforation or abscess without bleeding (principal); R19.4 Change in bowel habit; I25.10 Atherosclerotic heart disease of native coronary artery without angina pectoris; I25.2 Old myocardial infarction; E78.5 Hyperlipidemia, unspecified; F32.9 Major depressive disorder, single episode, unspecified; F41.9 Anxiety disorder, unspecified; Z79.899 Other long term (current) drug therapy; Z88.1 Allergy status to other antibiotic agents; Z88.5 Allergy status to narcotic agent; F17.200 Nicotine dependence, unspecified, uncomplicated
CPT/HCPCS: 45378; J2704

== ENCOUNTER 2016-08-20 15:35 | Inpatient (IN) | payer MEDICARE ==
[2016-08-20] MEDS ORDERED: SODIUM CHLORIDE 0.9% 1,000 ML IV STA (15:42)
[2016-08-20] MEDS ORDERED: PANTOPRAZOLE 40 MG/10 ML VIAL IVP STA (15:42)
[2016-08-20] MEDS ORDERED: RX INFO: IV CONTRAST WAS GIVEN 1 EACH MISC MISCELLANE PRN (16:04)
--- NOTE | 2016-08-20 16:09 | ED ---
Abdominal Pain HPI - General Chief Complaint: Abdominal Pain Stated Complaint: Difficulty Breathing Time Seen by Provider: 08/20/16 15:35 Source: patient, EMS, RN notes reviewed Mode of arrival: EMS - History of Present Illness Initial Comments: This is a 66-year-old female with a history of recent colonoscopy presents with complaints of abdominal pain. She states she's had some bloating since the procedure. No history of some shortness of breath. She broke her abdomen hurts. Also she was ordered over her blood pressure today 185/140 for paramedics. Also she's had to black stools this morning. No nausea vomiting at this time. No fevers chills sweats she denies any lightheadedness or dizziness at this time. MD Complaint: abdominal pain - Related Data Home Medications Medication Instructions Recorded Confirmed Cholecalciferol [Vitamin D3] 400 unit PO DAILY 06/01/16 08/20/16 Sertraline [Zoloft] 100 mg PO DAILY 06/01/16 08/20/16 Allergies Allergy/AdvReac Type Severity Reaction Status Date / Time levofloxacin [From Levaquin] Allergy Itching Verified 08/20/16 15:53 codeine AdvReac MIGRAINE Verified 08/20/16 15:53 Review of Systems ROS Statement: Those systems with pertinent positive or pertinent negative responses have been documented in the HPI. ROS Other: All systems not noted in ROS Statement are negative. Past Medical History Past Medical History: Hyperlipidemia, Myocardial Infarction (MS) Additional Past Medical History / Comment(s): TROUBLE SWALLOWING Last Myocardial Infarction Date:: 2010 History of Any Multi-Drug Resistant Organisms: None Reported Past Surgical History: Back Surgery, Joint Replacement Additional Past Surgical History / Comment(s): left knee replacement 2003, fusion of L4-L5 from broken back, tubal ligation , tendon release right elbow , BACK SURGERY X3 Past Anesthesia/Blood Transfusion Reactions: No Reported Reaction Past Psychological History: Anxiety, Depression Smoking Status: Current every day smoker Past Alcohol Use History: Occasional Past Drug Use History: None Reported - Past Family History Mother Family Medical History: Congestive Heart Failure (CHF), Coronary Artery Disease (CAD), Dementia Additional Family Medical History / Comment(s): alzheimers Sister(s) Family Medical History: Cancer Additional Family Medical History / Comment(s): breast cancer Brother(s) Family Medical History: Renal Disease Additional Family Medical History / Comment(s): kidney failure General Exam - General Exam Comments Initial Comments: This is a well little pulmonary awake alert oriented 3 female General appearance: alert, anxious, in distress Head exam: Present: atraumatic, normocephalic, normal inspection Eye exam: Present: normal appearance, PERRL, EOMI. Absent: scleral icterus, conjunctival injection, periorbital swelling ENT exam: Present: normal exam, mucous membranes moist Neck exam: Present: normal inspection. Absent: tenderness, meningismus, lymphadenopathy Respiratory exam: Present: wheezes. Absent: respiratory distress, rales, rhonchi, stridor Cardiovascular Exam: Present: normal rhythm, tachycardia, normal heart sounds. Absent: systolic murmur, diastolic murmur, rubs, gallop, clicks GI/Abdominal exam: Present: soft, tenderness (Epigastric tenderness palpation no guarding rebound masses or bruits), normal bowel sounds. Absent: distended, guarding, rebound, rigid Extremities exam: Present: normal inspection, full ROM, normal capillary refill. Absent: tenderness, pedal edema, joint swelling, calf tenderness Back exam: Present: normal inspection Neurological exam: Present: alert, oriented X3, CN II-XII intact Psychiatric exam: Present: normal affect, normal mood Skin exam: Present: warm, dry, intact, normal color. Absent: rash Course Vital Signs 08/20/16 08/20/16 08/20/16 15:39 16:06 16:10 Temperature 100.6 F H Pulse Rate 107 H 104 H Respiratory 28 H 20 Rate Blood Pressure 119/75 153/60 O2 Sat by Pulse 97 96 Oximetry 08/20/16 08/20/16 17:20 17:33 Temperature Pulse Rate 90 91 Respiratory Rate Blood Pressure O2 Sat by Pulse Oximetry - Reevaluation(s) Reevaluation #1: 08/20/16 18:19 Patient did respond to the DuoNeb treatment she is feeling much improved. Reevaluation #2: 08/20/16 18:20 I did discuss findings with the patient family patient is feeling improved at this time she states she does not require a nicotine patch for admission. She smokes less than a pack of cigarettes per day. Procedures - Chest Tube Insertion Time Out Performed: Yes Side of Procedure: left Indication: Pneumothorax Placed on monitor/pulse oximetry: Yes Site Prep: Chloroprep Local Anesthesia: Lidocaine 1% Insertion Site: 5th Intercostal Space, Midaxillary Scalpel: #10 Open into Pleural Space Using: Trocar Tube Size ([place]): 32 Returns: Air Sutured in Place: Yes Attached to Suction: Yes Type of Suction: Pleuravac Repeat X-ray Results: Lung Inflated Patient Tolerated Procedure: well, other (Patient did tolerate this well he did have some pain with the initial insertion. He did actually rotated on the table during the procedure wants. Afterwards he was able tolerate. The tube was sutured with 0 Ethibond.) Medical Decision Making - Medical Decision Making I did discuss case with who did come to the patient in the emergency department. Patient will be admitted to intensive care unit for evaluation and observation. I also did discuss the case with Dr. aNtion is being consulted. - Lab Data Result diagrams: 08/20/16 16:03 08/20/16 16:03 Lab Results 08/20/16 08/20/16 08/20/16 Range/Units 16:03 16:03 16:03 WBC (3.8-10.6) k/uL RBC (3.80-5.40) m/uL Hgb (11.4-16.0) gm/dL Hct (34.0-46.0) % MCV (80.0-100.0) fL MCH (25.0-35.0) pg MCHC (31.0-37.0) g/dL RDW (11.5-15.5) % Plt Count (150-450) k/uL Neutrophils % % Lymphocytes % % Monocytes % % Eosinophils % % Basophils % % Neutrophils # (1.3-7.7) k/uL Lymphocytes # (1.0-4.8) k/uL Monocytes # (0-1.0) k/uL Eosinophils # (0-0.7) k/uL Basophils # (0-0.2) k/uL PT (9.0-12.0) sec INR (<1.1) APTT (22.0-30.0) sec Sodium 140 (137-145) mmol/L Potassium 4.2 (3.5-5.1) mmol/L Chloride 110 H (98-107) mmol/L Carbon Dioxide 18 L (22-30) mmol/L Anion Gap 12 mmol/L BUN 13 (7-17) mg/dL Creatinine 0.80 (0.52-1.04) mg/dL Est GFR (MDRD) Af Amer >60 (>60 ml/min/1.73 sqM) Est GFR (MDRD) Non-Af >60 (>60 ml/min/1.73 sqM) Glucose 111 H (74-99) mg/dL Plasma Lactic Acid Steven (0.7-2.0) mmol/L Calcium 9.6 (8.4-10.2) mg/dL Total Bilirubin 1.0 (0.2-1.3) mg/dL AST 21 (14-36) U/L ALT 21 (9-52) U/L Alkaline Phosphatase 66 (38-126) U/L Total Creatine Kinase 41 (30-135) U/L CK-MB (CK-2) 0.7 (0.0-2.4) ng/mL CK-MB (CK-2) Rel Index 1.7 Troponin I <0.012 (0.000-0.034) ng/mL Total Protein 6.8 (6.3-8.2) g/dL Albumin 4.2 (3.5-5.0) g/dL Amylase <30 L (30-110) U/L Lipase 34 (23-300) U/L Stool Occult Blood (Negative) Blood Type A Positive Blood Type Recheck A Pos Antibody Screen NEGATIVE Spec Expiration Date 08/23/2016230208/20/16 08/20/16 08/20/16 Range/Units 16:03 16:03 16:03 WBC 12.5 H (3.8-10.6) k/uL RBC 3.37 L (3.80-5.40) m/uL Hgb 11.6 (11.4-16.0) gm/dL Hct 33.4 L (34.0-46.0) % MCV 99.2 (80.0-100.0) fL MCH 34.6 (25.0-35.0) pg MCHC 34.9 (31.0-37.0) g/dL RDW 14.2 (11.5-15.5) % Plt Count 195 (150-450) k/uL Neutrophils % 77 % Lymphocytes % 13 % Monocytes % 7 % Eosinophils % 1 % Basophils % 0 % Neutrophils # 9.6 H (1.3-7.7) k/uL Lymphocytes # 1.7 (1.0-4.8) k/uL Monocytes # 0.9 (0-1.0) k/uL Eosinophils # 0.2 (0-0.7) k/uL Basophils # 0.0 (0-0.2) k/uL PT 10.5 (9.0-12.0) sec INR 1.0 (<1.1) APTT 24.5 (22.0-30.0) sec Sodium (137-145) mmol/L Potassium (3.5-5.1) mmol/L Chloride (98-107) mmol/L Carbon Dioxide (22-30) mmol/L Anion Gap mmol/L BUN (7-17) mg/dL Creatinine (0.52-1.04) mg/dL Est GFR (MDRD) Af Amer (>60 ml/min/1.73 sqM) Est GFR (MDRD) Non-Af (>60 ml/min/1.73 sqM) Glucose (74-99) mg/dL Plasma Lactic Acid Steven 1.2 (0.7-2.0) mmol/L Calcium (8.4-10.2) mg/dL Total Bilirubin (0.2-1.3) mg/dL AST (14-36) U/L ALT (9-52) U/L Alkaline Phosphatase (38-126) U/L Total Creatine Kinase (30-135) U/L CK-MB (CK-2) (0.0-2.4) ng/mL CK-MB (CK-2) Rel Index Troponin I (0.000-0.034) ng/mL Total Protein (6.3-8.2) g/dL Albumin (3.5-5.0) g/dL Amylase (30-110) U/L Lipase (23-300) U/L Stool Occult Blood (Negative) Blood Type Blood Type Recheck Antibody Screen Spec Expiration Date 08/20/16 Range/Units 16:45 WBC (3.8-10.6) k/uL RBC (3.80-5.40) m/uL Hgb (11.4-16.0) gm/dL Hct (34.0-46.0) % MCV (80.0-100.0) fL MCH (25.0-35.0) pg MCHC (31.0-37.0) g/dL RDW (11.5-15.5) % Plt Count (150-450) k/uL Neutrophils % % Lymphocytes % % Monocytes % % Eosinophils % % Basophils % % Neutrophils # (1.3-7.7) k/uL Lymphocytes # (1.0-4.8) k/uL Monocytes # (0-1.0) k/uL Eosinophils # (0-0.7) k/uL Basophils # (0-0.2) k/uL PT (9.0-12.0) sec INR (<1.1) APTT (22.0-30.0) sec Sodium (137-145) mmol/L Potassium (3.5-5.1) mmol/L Chloride (98-107) mmol/L Carbon Dioxide (22-30) mmol/L Anion Gap mmol/L BUN (7-17) mg/dL Creatinine (0.52-1.04) mg/dL Est GFR (MDRD) Af Amer (>60 ml/min/1.73 sqM) Est GFR (MDRD) Non-Af (>60 ml/min/1.73 sqM) Glucose (74-99) mg/dL Plasma Lactic Acid Steven (0.7-2.0) mmol/L Calcium (8.4-10.2) mg/dL Total Bilirubin (0.2-1.3) mg/dL AST (14-36) U/L ALT (9-52) U/L Alkaline Phosphatase (38-126) U/L Total Creatine Kinase (30-135) U/L CK-MB (CK-2) (0.0-2.4) ng/mL CK-MB (CK-2) Rel Index Troponin I (0.000-0.034) ng/mL Total Protein (6.3-8.2) g/dL Albumin (3.5-5.0) g/dL Amylase (30-110) U/L Lipase (23-300) U/L Stool Occult Blood Negative (Negative) Blood Type Blood Type Recheck Antibody Screen Spec Expiration Date - EKG Data -: EKG Interpreted by Hi EKG shows normal: sinus rhythm (Sinus tachycardia rate 107 appear 116 QRS 82 QT since QTC of 358/[address] configuration.) - Radiology Data Radiology results: report reviewed (Did review the imaging and report or is evidence of a stage II splenic injury with question of some free fluid in the abdomen possibly hemorrhage.), image reviewed Critical Care Time Critical Care Time: Yes Critical Care Time: 31 minutes of critical care time which includes initial presentation with history physical labs and x-rays. Discussed with patient and paramedics as well as monitoring the EMS run prior to arrival. Frequent reevaluation patient. Discussed with the patient family discuss with the admitting physician service with a consult. Initial orders and documentation of the above Disposition Clinical Impression: Abdominal pain, Splenic laceration, Acute bronchospasm Disposition: ADMITTED IP TO THIS HOSP Condition: Stable Referrals: Kiel Cuenca MD [Primary Care Provider] - 1-2 days
[2016-08-20 16:18] LABS: Basophils % (A) 0 %; CH 34.7; CHCM 35.1; Eosinophils # (A) 0.2 k/uL (0-0.7); Eosinophils % (A) 1 %; HCT 33.4 % (34.0-46.0); HGB 11.6 gm/dL (11.4-16.0); Luc # (Auto) 0.16; Luc % (Auto) 1; Lymphocytes # (A) 1.7 k/uL (1.0-4.8); Lymphocytes % (A) 13 %; MCH 34.6 pg (25.0-35.0); MCHC 34.9 g/dL (31.0-37.0); MCV 99.2 fL (80.0-100.0); Mean Platelet Volume 7.7; Monocytes # (A) 0.9 k/uL (0-1.0); Monocytes % (A) 7 %; Neutrophils # (A) 9.6 k/uL (1.3-7.7); Neutrophils % (A) 77 %; RBC 3.37 m/uL (3.80-5.40); RDW 14.2 % (11.5-15.5); WBC 12.5 k/uL (3.8-10.6); WBC (Perox) 12.18
[2016-08-20 16:31] LABS: Partial Thromboplastin Time 24.5 sec (22.0-30.0); Prothrombin Time 10.5 sec (9.0-12.0)
--- NOTE | 2016-08-20 16:31 | XR ---
EXAMINATION TYPE: XR chest 1V portable DATE OF EXAM: 08/20/2016 COMPARISON: 06/02/2016 HISTORY: Pain TECHNIQUE: Single frontal view of the chest is obtained. FINDINGS: Heart and mediastinum are normal. Lungs are clear. Diaphragm is normal. Bony thorax is int act. IMPRESSION: Normal chest. No change.
--- NOTE | 2016-08-20 16:32 | XR ---
EXAMINATION TYPE: XR KUB DATE OF EXAM: 08/20/2016 COMPARISON: NONE HISTORY: Abdominal pain TECHNIQUE: 2 views FINDINGS: Bowel gas pattern is normal. There is no sign of intestinal obstruction or pneumoperitoneum fecal pattern is normal. Lumbar spine fusion surgery is noted. There are no pathologic calcification s over the kidneys. IMPRESSION: Nonacute abdomen.
[2016-08-20 16:36] LABS: ALT 21 U/L (9-52); AST 21 U/L (14-36); Alkaline Phosphatase 66 U/L (38-126); Amylase <30 U/L (30-110); Anion Gap 12 mmol/L; Blood Urea Nitrogen 13 mg/dL (7-17); Calcium 9.6 mg/dL (8.4-10.2); Carbon Dioxide 18 mmol/L (22-30); Chloride 110 mmol/L (98-107); Glucose 111 mg/dL (74-99); Non-African American GFR(MDRD) >60 (>60 ml/min/1.73 sqM); Potassium 4.2 mmol/L (3.5-5.1); Sodium 140 mmol/L (137-145); Total Protein 6.8 g/dL (6.3-8.2)
[2016-08-20 16:38] LABS: Creatine Kinase 41 U/L (30-135)
[2016-08-20] MEDS ORDERED: HYDROmorphone 1 MG/ML 1 ML SYRINGE IVP STA (16:43)
[2016-08-20 16:51] LABS: Creatine Kinase MB 0.7 ng/mL (0.0-2.4); Troponin I <0.012 ng/mL (0.000-0.034)
[2016-08-20] MEDS ORDERED: ONDANSETRON 4 MG/2 ML VIAL IVP STA (17:06)
[2016-08-20] MEDS ORDERED: IPRATROPIUM-ALBUTEROL 3 ML NEB INHALATION STA (17:13)
--- NOTE | 2016-08-20 17:17 | CT ---
EXAMINATION TYPE: CT abdomen pelvis w con DATE OF EXAM: 08/20/2016 COMPARISON: 06/01/2016 HISTORY: Back spasms and chest pain x [address] DLP: 550.50 mGycm Automated exposure control for dose reduction was used. TECHNIQUE: Helical acquisition of images was performed from the lung bases through the pelvis. CONTRAST: Performed without Oral Contrast and with IV Contrast, patient injected with 100 mL of Omnipaque 300. FINDINGS: Lung bases are clear. There is no pleural effusion. Heart size is normal. Liver shows no focal defect. There is mixed density around the spleen posteriorly and laterally consi stent with subcapsular and perisplenic hematoma. There is apparent laceration of the spleen on the in ferior pole that measures 1 cm. There is a 2 cm low-density left adrenal mass. Kidneys show satisfactory contrast opacification. There is no hydronephrosis. There is no retroperito karol adenopathy. There is free fluid in the pelvis. Bladder distends smoothly. There is no sign of a bowel obstruction. Appendix appears normal. There are spondylotic changes in the lumbar spine with mu ltilevel posterior fusion surgery. There is no compression fracture. IMPRESSION: THERE IS FREE FLUID IN THE ABDOMEN CONSISTENT WITH HEMORRHAGE. 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 THIS IS A GRADE 2 INJURY. NO FRACTURE SEEN. LACERATION IS NEW COMPARED TO OLD CT SCAN. There is low-density left adrenal mass that is stable compared to old exam and consistent with myelol ipoma.
--- NOTE | 2016-08-20 18:21 | P.GSCN ---
History of Present Illness Consult date: 08/20/16 Reason for Consult: Abdominal pain History of present illness: The 6-year-old lady who presents 5 days after having colonoscopy. The colonoscopy she was doing well he is passing flatus and did not have any pain she's had a bowel movement no nausea no vomiting. She slept fine on and Sunday morning woke up with the severe pain been progressively got worse. She is unable to lay down flat there is some nausea no vomiting. She is passing gas and burping. He is not having a PE. The pain is located in the upper part of the biliary is moderate to severe. It is made worse by lying down and moving about. It is improved by the pain medication. There is no hematemesis hematochezia melena. Review of Systems No reported lightheadedness - Constitutional Reports anorexia, Denies chronic headaches - EENT Eyes: denies blurred vision - Cardiovascular Denies chest pain, Denies shortness of breath - Respiratory Respiratory Comment(s): She sees a few times yesterday and today Denies cough, Denies 7 - Gastrointestinal Reports as per HPI - Genitourinary Genitourinary: Denies dysuria, Denies hematuria Past Medical History Past Medical History: Hyperlipidemia, Myocardial Infarction ([place]) Additional Past Medical History / Comment(s): TROUBLE SWALLOWING Last Myocardial Infarction Date:: 2010 History of Any Multi-Drug Resistant Organisms: None Reported Past Surgical History: Back Surgery, Joint Replacement Additional Past Surgical History / Comment(s): left knee replacement 2003, fusion of L4-L5 from broken back, tubal ligation , tendon release right elbow , BACK SURGERY X3 Past Anesthesia/Blood Transfusion Reactions: No Reported Reaction Past Psychological History: Anxiety, Depression Smoking Status: Current every day smoker Past Alcohol Use History: Occasional Past Drug Use History: None Reported - Past Family History Mother Family Medical History: Congestive Heart Failure (CHF), Coronary Artery Disease (CAD), Dementia Additional Family Medical History / Comment(s): alzheimers Sister(s) Family Medical History: Cancer Additional Family Medical History / Comment(s): breast cancer Brother(s) Family Medical History: Renal Disease Additional Family Medical History / Comment(s): kidney failure Medications and Allergies Home Medications Medication Instructions Recorded Confirmed Type Cholecalciferol [Vitamin D3] 400 unit PO DAILY 06/01/16 08/20/16 History Sertraline [Zoloft] 100 mg PO DAILY 06/01/16 08/20/16 History Allergies Allergy/AdvReac Type Severity Reaction Status Date / Time levofloxacin [From Levaquin] Allergy Itching Verified 08/20/16 15:53 codeine AdvReac MIGRAINE Verified 08/20/16 15:53 Surgical - Exam Vital Signs Temp Pulse Resp BP Pulse Ox 100.6 F H 107 H 28 H 119/75 97 08/20/16 15:39 08/20/16 15:39 08/20/16 15:39 08/20/16 15:39 08/20/16 15:39 - General well developed, well nourished, moderate distress - Eyes PERRL, normal ocular movement, no pale, no icteric, no deviation, no loss of movement - ENT no hearing loss, no congestion - Respiratory normal expansion - Cardiovascular Rhythm: regular - Abdomen Patient has moderate to sever tenderness in the epigastrium. No true guarding Abdomen: tender - Integumentary no rash, no abnormal pigmentation - Musculoskeletal normal posture - Psychiatric oriented to time, oriented to person, oriented to place, speech is normal, memory intact Results - Labs 08/20/16 16:03 08/20/16 16:03 Abnormal Lab Results - Last 24 Hours (Table) 08/20/16 08/20/16 Range/Units 16:03 16:03 WBC 12.5 H (3.8-10.6) k/uL RBC 3.37 L (3.80-5.40) m/uL Hct 33.4 L (34.0-46.0) % Neutrophils # 9.6 H (1.3-7.7) k/uL Chloride 110 H (98-107) mmol/L Carbon Dioxide 18 L (22-30) mmol/L Glucose 111 H (74-99) mg/dL Amylase <30 L (30-110) U/L Diabetes panel 08/20/16 Range/Units 16:03 Sodium 140 (137-145) mmol/L Potassium 4.2 (3.5-5.1) mmol/L Chloride 110 H (98-107) mmol/L Carbon Dioxide 18 L (22-30) mmol/L BUN 13 (7-17) mg/dL Creatinine 0.80 (0.52-1.04) mg/dL Glucose 111 H (74-99) mg/dL Calcium 9.6 (8.4-10.2) mg/dL AST 21 (14-36) U/L ALT 21 (9-52) U/L Alkaline Phosphatase 66 (38-126) U/L Total Protein 6.8 (6.3-8.2) g/dL Albumin 4.2 (3.5-5.0) g/dL Calcium panel 08/20/16 Range/Units 16:03 Calcium 9.6 (8.4-10.2) mg/dL Albumin 4.2 (3.5-5.0) g/dL Pituitary panel 08/20/16 Range/Units 16:03 Sodium 140 (137-145) mmol/L Potassium 4.2 (3.5-5.1) mmol/L Chloride 110 H (98-107) mmol/L Carbon Dioxide 18 L (22-30) mmol/L BUN 13 (7-17) mg/dL Creatinine 0.80 (0.52-1.04) mg/dL Glucose 111 H (74-99) mg/dL Calcium 9.6 (8.4-10.2) mg/dL Adrenal panel 08/20/16 Range/Units 16:03 Sodium 140 (137-145) mmol/L Potassium 4.2 (3.5-5.1) mmol/L Chloride 110 H (98-107) mmol/L Carbon Dioxide 18 L (22-30) mmol/L BUN 13 (7-17) mg/dL Creatinine 0.80 (0.52-1.04) mg/dL Glucose 111 H (74-99) mg/dL Calcium 9.6 (8.4-10.2) mg/dL Total Bilirubin 1.0 (0.2-1.3) mg/dL AST 21 (14-36) U/L ALT 21 (9-52) U/L Alkaline Phosphatase 66 (38-126) U/L Total Protein 6.8 (6.3-8.2) g/dL Albumin 4.2 (3.5-5.0) g/dL - Imaging Additional studies: Computed tomography scan of the abdomen was noted and it showed free fluid in the in the abdomen as well as 1 cm laceration in the subcu A hematoma classified as a grade 2 splenic injury. Assessment and Plan (1) Intraoperative hematoma of spleen complicating non-spleen procedure Status: Acute Plan: Patient 66-year-old lady who presents with a grade 2 splenic hematoma. Her vitals are stable she's alert awake oriented she has not been lightheaded. Recommended admission to the ICU for close monitoring as well as monitoring of hemoglobin. She should not move much and she is okay to have clear liquids. We will continue to monitor her situation. If the hematoma laceration continues to expand and he may need a splenectomy but at this time we shall monitor in the ICU.
[2016-08-20] MEDS ORDERED: HYDROmorphone 1 MG/ML 1 ML SYRINGE IVP PRN (18:23)
[2016-08-20] MEDS ORDERED: NALOXONE 0.4 MG/ML 1 ML VIAL IV PRN (18:23)
[2016-08-20 19:10] LABS: Glucose,Whole Blood 119 mg/dL (75-99)
[2016-08-20] MEDS ORDERED: IPRATROPIUM-ALBUTEROL 3 ML NEB INHALATION SCH (20:00)
[2016-08-20] MEDS ORDERED: IPRATROPIUM-ALBUTEROL 3 ML NEB INHALATION PRN (20:07)
[2016-08-20] MEDS: HYDROmorphone 1 MG/ML 1 ML SYRINGE IVP PRN (21:33)
[2016-08-20] MEDS: PANTOPRAZOLE 40 MG/10 ML VIAL IV SCH (21:35)
[2016-08-21] MEDS ORDERED: HYDROmorphone 1 MG/ML 1 ML SYRINGE ONE (01:30)
[2016-08-21] MEDS ORDERED: RX INFO: IV CONTRAST WAS GIVEN 1 EACH MISC MISCELLANE PRN ×2 (04:20→11:58)
[2016-08-21] MEDS: SODIUM CHLORIDE 0.9% 1,000 ML IV SCH (04:32)
[2016-08-21] MEDS: HYDROmorphone 1 MG/ML 1 ML SYRINGE IVP PRN ×5 (04:33→19:50)
[2016-08-21 04:53] LABS: Basophils % (A) 0 %; CH 33.8; CHCM 33.6; Eosinophils # (A) 0.1 k/uL (0-0.7); Eosinophils % (A) 1 %; HCT 30.7 % (34.0-46.0); HDW 2.75; HGB 10.4 gm/dL (11.4-16.0); Luc # (Auto) 0.16; Luc % (Auto) 2; Lymphocytes # (A) 1.4 k/uL (1.0-4.8); Lymphocytes % (A) 16 %; MCH 34.3 pg (25.0-35.0); MCV 100.9 fL (80.0-100.0); Macrocytosis Slight; Mean Platelet Volume 8.5; Monocytes # (A) 0.6 k/uL (0-1.0); Monocytes % (A) 7 %; Neutrophils # (A) 6.8 k/uL (1.3-7.7); Neutrophils % (A) 75 %; RBC 3.04 m/uL (3.80-5.40); RDW 14.2 % (11.5-15.5)
[2016-08-21 06:10] LABS: Appearance,Urine Clear (Clear); Bilirubin,Urine Negative (Negative); Glucose,Urine (UA) Negative (Negative); Ketones,Urine Negative (Negative); Leukocyte Esterase,Urine Negative (Negative); Nitrite,Urine Negative (Negative); Particle Count 1028; Protein,Urine 1+ (Negative); RBC,Urine 1 /hpf (0-5); UA Billing (MACRO vs. MICRO) MICRO; Urobilinogen,Urine <2.0 mg/dL (<2.0); WBC,Urine <1 /hpf (0-5)
[2016-08-21 06:15] LABS: Specific Gravity,Urine >1.050 (1.001-1.035)
--- NOTE | 2016-08-21 06:28 | CT ---
EXAM: CT Abdomen and Pelvis With Intravenous Contrast CLINICAL HISTORY: Reason: Increased abdominal pain/ Splenic bleed TECHNIQUE: Axial computed tomography images of the abdomen and pelvis with intravenous contrast. CTDI is 15.80 mGy and DLP is 644.10 mGy-cm. This CT exam was performed using one or more of the following dose reduction techniques: automated exposure control, adjustment of the mA and/or kV according to patient size, and/or use of iterative reconstruction technique. COMPARISON: CT of the abdomen/pelvis dated 08/20/2016 FINDINGS: Lower thorax: New small left pleural effusion and likely trace right pleural effusion. Bilateral dependent atelectasis, new since prior study. ABDOMEN: Liver: Unremarkable. No mass. Gallbladder and bile ducts: Unremarkable. No calcified stones. No ductal dilation. Pancreas: Unremarkable. No mass. No ductal dilation. Spleen: Subcapsular and perisplenic hematoma again seen. The subcapsular hematoma now measures up to 2.2 cm in thickness, previously measuring up to 2 cm in thickness. The perisplenic hematoma measures up to 2.1 cm in thickness, previously measuring up to 1.6 centers in thickness. Previously noted 1 cm splenic laceration is not clearly visualized on this study. Adrenals: Unremarkable. No mass. Kidneys and ureters: Unremarkable. No solid mass. No hydronephrosis. Stomach and bowel: Unremarkable. No obstruction. No mucosal thickening. Appendix: No findings to suggest acute appendicitis. PELVIS: Bladder: Thibodeaux catheter is seen within a collapsed urinary bladder. Reproductive: Unremarkable as visualized. ABDOMEN and PELVIS: Intraperitoneal space: Small amount of pelvic free fluid is again seen. No free air. Bones/joints: Patient status post L3-L5 spinal fusion with bilateral screws and rods. Moderate/severe degenerative changes are noted at the L2-L3 intervertebral disc space. No acute fracture. No dislocation. Soft tissues: Unremarkable. Vasculature: Moderate atherosclerotic vascular calcifications are seen involving the abdominal aorta and its branches. No abdominal aortic aneurysm. Lymph nodes: Unremarkable. No enlarged lymph nodes. IMPRESSION: 1. New small left pleural effusion and likely trace right pleural effusion. Bilateral dependent atelectasis, new since prior study. 2. Interval increase in size of the subcapsular and perisplenic hematoma, as above. 3. Previously noted 1 cm splenic laceration is not clearly visualized on this study.
[2016-08-21 07:11] LABS: Basophils % (A) 0 %; CH 33.4; CHCM 33.1; Eosinophils # (A) 0.1 k/uL (0-0.7); Eosinophils % (A) 1 %; HCT 29.3 % (34.0-46.0); HDW 2.82; Luc # (Auto) 0.14; Luc % (Auto) 2; Lymphocytes # (A) 1.1 k/uL (1.0-4.8); Lymphocytes % (A) 13 %; MCH 34.6 pg (25.0-35.0); MCHC 34.1 g/dL (31.0-37.0); MCV 101.4 fL (80.0-100.0); Macrocytosis Slight; Mean Platelet Volume 8.2; Monocytes # (A) 0.6 k/uL (0-1.0); Monocytes % (A) 7 %; Neutrophils # (A) 6.6 k/uL (1.3-7.7); Neutrophils % (A) 77 %; RBC 2.89 m/uL (3.80-5.40); RDW 13.8 % (11.5-15.5); WBC 8.6 k/uL (3.8-10.6); WBC (Perox) 8.63
[2016-08-21 07:17] LABS: Anion Gap 10 mmol/L; Blood Urea Nitrogen 15 mg/dL (7-17); Calcium 8.8 mg/dL (8.4-10.2); Carbon Dioxide 19 mmol/L (22-30); Chloride 109 mmol/L (98-107); Glucose 97 mg/dL (74-99); INR 1.1 (<1.1); Magnesium 1.7 mg/dL (1.6-2.3); Non-African American GFR(MDRD) >60 (>60 ml/min/1.73 sqM); Potassium 3.7 mmol/L (3.5-5.1); Prothrombin Time 10.6 sec (9.0-12.0); Sodium 138 mmol/L (137-145)
[2016-08-21] MEDS: IPRATROPIUM-ALBUTEROL 3 ML NEB INHALATION SCH ×4 (09:03→20:05)
[2016-08-21] MEDS: SERTRALINE 100 MG TAB PO SCH (09:59)
[2016-08-21] MEDS: PANTOPRAZOLE 40 MG/10 ML VIAL IV SCH ×2 (09:59→22:14)
[2016-08-21] MEDS: CHOLECALCIFEROL 400 UNIT TAB PO SCH (11:07)
--- NOTE | 2016-08-21 11:08 | P.CNPUL ---
History of Present Illness Consult date: 08/21/16 Requesting physician: Gary Davila Reason for consult: other (Critical care management) Chief complaint: Abdominal pain History of present illness: This is a very pleasant 66-year-old female patient who follows with Dr. Cuenca as her primary care physician. She has a history of hyperlipidemia, myocardial infarction, anxiety/depression, chronic and ongoing tobacco dependence. She had undergone a colonoscopy on 08/14/[address] Jacob. She was noted to have mild sigmoid diverticulosis but no evidence of acute diverticulitis, strictures, polyps or cancer. She presented here yesterday with complaints of bloating and abdominal pain. Abdominal CT scan today reveals a new small left pleural effusion and trace right pleural effusion. There is some bilateral dependent atelectasis which is new compared to yesterday's. There is also interval increase in size in the subcapsular and. Splenic hematoma. There is a noted 1 cm splenic laceration and she had been seen and evaluated by Dr. Davila. She is seen today in the intensive care unit and consultation. She is awake and alert in no acute distress. She does have abdominal pain and discomfort she does have some worsening shortness of breath. She is maintaining O2 saturations in the mid 90s on 3 L/m per nasal cannula. She's been hemodynamically stable. Not on any pressors. She is receiving IV 0.9 normal saline at 50 MLS per hour. Review of Systems 14 point review of system was conducted. All negative other than as mentioned in HPI. Past Medical History Past Medical History: Hyperlipidemia, Myocardial Infarction ([place]) Additional Past Medical History / Comment(s): TROUBLE SWALLOWING Last Myocardial Infarction Date:: 2010 History of Any Multi-Drug Resistant Organisms: None Reported Past Surgical History: Back Surgery, Joint Replacement Additional Past Surgical History / Comment(s): left knee replacement 2004, fusion of L3-L4-L5 from broken back, tubal ligation , tendon release right elbow ,BACK SURGERY X3, Past Anesthesia/Blood Transfusion Reactions: No Reported Reaction Past Psychological History: Anxiety, Depression Smoking Status: Current every day smoker Past Alcohol Use History: Occasional Past Drug Use History: Marijuana Additional Drug Use History / Comment(s): pt states she has her medical marijuana card, uses 2 times a week - Past Family History Mother Family Medical History: Diabetes Mellitus Additional Family Medical History / Comment(s): alzheimers Sister(s) Family Medical History: Cancer Additional Family Medical History / Comment(s): breast cancer Brother(s) Family Medical History: Renal Disease Additional Family Medical History / Comment(s): kidney failure Medications and Allergies Home Medications Medication Instructions Recorded Confirmed Type Cholecalciferol [Vitamin D3] 400 unit PO DAILY 06/01/16 08/20/16 History Sertraline [Zoloft] 100 mg PO DAILY 06/01/16 08/20/16 History Allergies Allergy/AdvReac Type Severity Reaction Status Date / Time levofloxacin [From Levaquin] Allergy Itching Verified 08/20/16 15:53 codeine AdvReac MIGRAINE Verified 08/20/16 15:53 Physical Exam Vitals: Vital Signs Temp Pulse Pulse Resp BP BP Pulse Ox 08/21/16 10:00 92 19 104/64 94 L 08/21/16 09:05 88 95 08/21/16 09:00 93 11 L 102/66 95 08/21/16 08:00 98.5 F 88 11 L 97/65 94 L 08/21/16 07:58 16 08/21/16 07:00 93 16 93/61 95 08/21/16 06:30 91 16 104/55 94 L 08/21/16 06:00 18 97/63 92 L 08/21/16 05:30 16 81/60 95 08/21/16 05:00 92 14 81/60 95 08/21/16 04:30 90 15 104/67 96 08/21/16 04:00 97.9 F 92 14 100/63 96 08/21/16 03:30 99 16 107/64 95 08/21/16 03:00 92 14 99/64 97 08/21/16 02:30 93 15 103/60 95 08/21/16 02:00 95 15 106/59 96 08/21/16 01:30 95 17 117/76 94 L 08/21/16 01:00 85 15 95/59 96 08/21/16 00:30 84 15 141/74 97 08/21/16 00:00 97.8 F 83 16 98/66 98 08/20/16 23:30 86 18 97/61 97 08/20/16 23:00 84 20 97/68 96 08/20/16 22:53 84 18 97/68 96 07/09/17 22:30 91 14 110/67 96 08/20/16 22:00 87 11 L 139/73 95 08/20/16 21:30 88 16 96 08/20/16 21:00 87 15 114/70 98 08/20/16 20:30 80 12 114/70 95 08/20/16 20:29 90 08/20/16 20:20 86 08/20/16 20:00 98.6 F 89 16 114/70 98 08/20/16 19:31 98.6 F 89 14 110/67 95 08/20/16 19:30 88 16 114/70 08/20/16 19:10 88 08/20/16 19:05 97.3 F L 94 20 140/69 96 08/20/16 18:05 97.3 F L 96 20 156/70 99 08/20/16 17:33 91 08/20/16 17:20 90 08/20/16 17:05 79 18 156/71 99 08/20/16 16:10 153/60 08/20/16 16:06 104 H 20 96 08/20/16 15:39 100.6 F H 107 H 28 H 119/75 97 Intake and Output 08/20/16 08/21/16 08/21/16 22:59 06:59 14:59 Intake Total 1800 550 200 Output Total 0 528 230 Balance 1800 22 -30 Intake: IV 1800 550 200 Invasive Line 1 1500 Sodium Chloride 0.9% 1, 300 300 000 ml @ 100 mls/hr IV . Q10H [facility] Rx#:[id number] Sodium Chloride 0.9% 1, 250 200 000 ml @ 50 mls/hr IV . Q20H [facility] Rx#:[id number] Output: Urine 0 528 230 Other: Voiding Method Toilet Indwelling Catheter Indwelling Catheter # Voids 0 0 0 Weight 62.59 kg 62.4 kg 62.4 kg Patient Weight 08/22/16 06:59 Weight 62.4 kg GENERAL EXAM: Alert, fairly comfortable in no apparent distress. HEAD: Normocephalic. EYES: Normal reaction of pupils, equal size. NOSE: Clear with pink turbinates. THROAT: No erythema or exudates. NECK: No masses, no JVD. CHEST: No chest wall deformity. LUNGS: Equal air entry with crackles in the posterior bases. CVS: S1 and S2 normal with no audible murmurs, regular rhythm. ABDOMEN: Distended, positive guarding. SPINE: No scoliosis or deformity SKIN: No rashes CENTRAL NERVOUS SYSTEM: No focal deficits, tone is normal in all 4 extremities. Extremities: There is no significant peripheral edema. No clubbing, no cyanosis. Peripheral pulses are intact. Results - Laboratory Findings CBC and BMP: 08/21/16 06:39 08/21/16 06:39 PT/INR, D-dimer PT 10.6 sec (9.0-12.0) 08/21/16 06:39 INR 1.1 (<1.1) 08/21/16 06:39 Abnormal lab findings: Abnormal Labs 08/20/16 08/20/16 08/20/16 16:03 16:03 19:08 WBC 12.5 H RBC 3.37 L Hgb Hct 33.4 L MCV Neutrophils # 9.6 H Chloride 110 H Carbon Dioxide 18 L Glucose 111 H POC Glucose (mg/dL) 119 H Amylase <30 L Ur Specific [place] Urine Protein 08/21/16 08/21/16 08/21/16 00:25 02:25 06:39 WBC RBC 3.04 L 2.89 L Hgb 10.4 L 10.0 L Hct 30.7 L 29.3 L MCV 100.9 H 101.4 H Neutrophils # Chloride Carbon Dioxide Glucose POC Glucose (mg/dL) Amylase Ur Specific [place] >1.050 H Urine Protein 1+ H 08/21/16 06:39 WBC RBC Hgb Hct MCV Neutrophils # Chloride 109 H Carbon Dioxide 19 L Glucose POC Glucose (mg/dL) Amylase Ur Specific [place] Urine Protein - Diagnostic Findings Chest x-ray: image reviewed Assessment and Plan Plan: Impression: #1 Abdominal pain secondary to splenic laceration and hematoma. #2 Anemia secondary to above as a postoperative complication from colonoscopy, hemoglobin stable at 10.0. #3 Hyperlipidemia. #4 Myocardial infarction, history of. #5 History of anxiety/depression. #6 Chronic and ongoing tobacco dependence. Plan: The patient was seen and evaluated by Dr. Nation. She is currently stable from the critical care standpoint. We will await further input from Dr. Davila if the patient should require splenectomy. She is currently not on any pressors. She' s been hemodynamically stable. Hemoglobin stable. We will continue to follow her here closely in the intensive care unit. Time with Patient: Greater than 30
[2016-08-21 12:32] LABS: Basophils % (A) 0 %; CH 34.4; Eosinophils # (A) 0.1 k/uL (0-0.7); Eosinophils % (A) 1 %; HCT 28.7 % (34.0-46.0); HDW 2.73; HGB 9.4 gm/dL (11.4-16.0); Luc # (Auto) 0.15; Luc % (Auto) 2; Lymphocytes # (A) 0.9 k/uL (1.0-4.8); Lymphocytes % (A) 10 %; MCH 34.4 pg (25.0-35.0); MCHC 32.9 g/dL (31.0-37.0); MCV 104.6 fL (80.0-100.0); Macrocytosis Moderate; Mean Platelet Volume 7.4; Monocytes # (A) 0.6 k/uL (0-1.0); Monocytes % (A) 7 %; Neutrophils # (A) 7.3 k/uL (1.3-7.7); Neutrophils % (A) 81 %; RBC 2.75 m/uL (3.80-5.40); RDW 14.2 % (11.5-15.5); WBC 9.1 k/uL (3.8-10.6); WBC (Perox) 9.08
--- NOTE | 2016-08-21 13:31 | P.PN ---
<Pooja Carranza - Last Filed: 08/21/16 13:31> Subjective 66-year-old female being seen in the intensive care unit with Dr. Davila. Dr. Davila did review the CAT scan of the abdomen pelvis that was done this morning to discuss the findings with the patient. Patient continues to report having abdominal pain or prior of the abdomen seems to make it worse if she tries to lay down or move around. Does state the pain medication does help his effective for pain control. Patient is 5 days post from having a colonoscopy done by Dr. Jacob. Postprocedure patient stated that she been doing relatively well up the current event when patient stated she developed severe pain which had gotten progressively worse being treated for.Intraoperative hematoma of spleen complicating non-spleen procedure Objective - Vital Signs Vital signs: Vital Signs Temp 98.6 F 08/21/16 12:00 Pulse 88 08/21/16 12:19 Resp 17 08/21/16 12:00 BP 78/56 08/21/16 12:00 Pulse Ox 95 08/21/16 12:00 Intake & Output 08/20/16 08/21/16 08/21/16 18:59 06:59 18:59 Intake Total 1500 850 300 Output Total 528 345 Balance 1500 322 -45 Weight 62.596 kg 62.4 kg 62.4 kg Intake: IV 1500 850 300 Invasive Line 1 1500 Sodium Chloride 0.9% 1, 600 000 ml @ 100 mls/hr IV . Q10H [facility] Rx#:[id number] Sodium Chloride 0.9% 1, 250 300 000 ml @ 50 mls/hr IV . Q20H [facility] Rx#:[id number] Output: Urine 528 345 Other: Voiding Method Toilet Indwelling Catheter Indwelling Catheter # Voids 0 0 - Exam Physical exam Pleasant 66-year-old female resting in bed had just received pain medication patient states the pain medication does reduce the pain but doesn't completely take it away continues to report having abdominal discomfort Lungs adequate air movement bilaterally on 3 L sats are 95% Heart S1-S2 audible and regular monitor sinus denying chest pain Abdomen moderate to severe tenderness in the epigastric area indwelling Thibodeaux catheter in place adequate urine output no stool states passing gas nausea sensation no active emesis Extremities no edema noted - Labs CBC & Chem 7: 08/21/16 11:50 08/21/16 06:39 Labs: Abnormal Lab Results - Last 24 Hours (Table) 08/20/16 08/20/16 08/20/16 Range/Units 16:03 16:03 19:08 WBC 12.5 H (3.8-10.6) k/uL RBC 3.37 L (3.80-5.40) m/uL Hgb (11.4-16.0) gm/dL Hct 33.4 L (34.0-46.0) % MCV (80.0-100.0) fL Neutrophils # 9.6 H (1.3-7.7) k/uL Lymphocytes # (1.0-4.8) k/uL Chloride 110 H (98-107) mmol/L Carbon Dioxide 18 L (22-30) mmol/L Glucose 111 H (74-99) mg/dL POC Glucose (mg/dL) 119 H (75-99) mg/dL Amylase <30 L (30-110) U/L Ur Specific [place] (1.001-1.035) Urine Protein (Negative) 08/21/16 08/21/16 08/21/16 Range/Units 00:25 02:25 06:39 WBC (3.8-10.6) k/uL RBC 3.04 L 2.89 L (3.80-5.40) m/uL Hgb 10.4 L 10.0 L (11.4-16.0) gm/dL Hct 30.7 L 29.3 L (34.0-46.0) % MCV 100.9 H 101.4 H (80.0-100.0) fL Neutrophils # (1.3-7.7) k/uL Lymphocytes # (1.0-4.8) k/uL Chloride (98-107) mmol/L Carbon Dioxide (22-30) mmol/L Glucose (74-99) mg/dL POC Glucose (mg/dL) (75-99) mg/dL Amylase (30-110) U/L Ur Specific [place] >1.050 H (1.001-1.035) Urine Protein 1+ H (Negative) 08/21/16 08/21/16 Range/Units 06:39 11:50 WBC (3.8-10.6) k/uL RBC 2.75 L (3.80-5.40) m/uL Hgb 9.4 L (11.4-16.0) gm/dL Hct 28.7 L (34.0-46.0) % MCV 104.6 H (80.0-100.0) fL Neutrophils # (1.3-7.7) k/uL Lymphocytes # 0.9 L (1.0-4.8) k/uL Chloride 109 H (98-107) mmol/L Carbon Dioxide 19 L (22-30) mmol/L Glucose (74-99) mg/dL POC Glucose (mg/dL) (75-99) mg/dL Amylase (30-110) U/L Ur Specific [place] (1.001-1.035) Urine Protein (Negative) Assessment and Plan Plan: Impression Present on admission severe intractable abdominal pain secondary to a grade 2 splenic laceration and hematoma Intraoperative hematoma of spleen complicating non-spleen procedure Present on admission intractable abdominal pain CAT scan abdomen showed free fluid in the abdomen with a grade 2 splenic injury A recent colonoscopy done 5 days prior done by Dr. Jacob showed no evidence of acute diverticulitis no strictures no polyp no cancer showed mild sigmoid diverticulosis Chronic and ongoing tobacco dependency Anxiety depressive disorder nonspecified History of a prior myocardial infarction Anemia secondary to grade 2 splenic laceration postop complication from a colonoscopy hemoglobin stable Hyperlipidemia Plan Continue ICU management per the order desk caller Hemoglobin every 8 hours notify if it dropped from 1 g to Repeat CAT scan of the abdomen pelvis with IV contrast in the morning follow up on results Pain control DVT and GI prophylaxis Further recommendations pending The above impression and plan of care have been discussed and directed by signing physician. Pooja Carranza nurse practitioner acting as scribe for signing physician. <Gary Davila W - Last Filed: 08/22/16 06:56> Subjective the patients hemoglobin has been stable and her pressures have been stable. Pain control remains an issues. There is a 0.2 cm size increase in the size of the subcapsular hematoma and stable perisplenic hematoma. WIll repeat CBC q shift and monitor closely. If there is significant drop in HB of greater than 1 point with instability , I have reommended a splenectomy. Objective - Vital Signs Vital signs: Vital Signs Temp 98.4 F 08/22/16 06:29 Pulse 82 08/22/16 06:29 Resp 20 08/22/16 06:29 BP 106/61 08/22/16 06:29 Pulse Ox 97 08/22/16 06:29 Intake & Output 08/21/16 08/21/16 08/22/16 06:59 18:59 06:59 Intake Total 850 800 900 Output Total 528 652 420 Balance 322 148 480 Weight 62.4 kg 62.4 kg 66.8 kg Intake: IV 850 800 900 Magnesium Sulfate-D5w Pmx 200 1 gm In Dextrose/Water 1 100ml.bag @ 100 mls/hr IVPB Q1H [facility] Rx#: [id number] Sodium Chloride 0.9% 1, 250 600 900 000 ml @ 100 mls/hr IV . Q10H [facility] Rx#:[id number] Sodium Chloride 0.9% 1, 600 000 ml @ 100 mls/hr IV . Q10H [facility] Rx#:[id number] Blood Product 0 Rc As-1 Unit 0 [id number] Output: Urine 528 652 420 Other: Voiding Method Indwelling Catheter Indwelling Catheter Indwelling Catheter # Voids 0 0 - Labs CBC & Chem 7: 08/22/16 05:29 08/22/16 04:42 Labs: Abnormal Lab Results - Last 24 Hours (Table) 08/20/16 08/21/16 08/21/16 Range/Units 16:03 06:39 06:39 RBC 2.89 L (3.80-5.40) m/uL Hgb 10.0 L (11.4-16.0) gm/dL Hct 29.3 L (34.0-46.0) % MCV 101.4 H (80.0-100.0) fL MCH (25.0-35.0) pg Neutrophils # (1.3-7.7) k/uL Lymphocytes # (1.0-4.8) k/uL Sodium (137-145) mmol/L Chloride 109 H (98-107) mmol/L Carbon Dioxide 19 L (22-30) mmol/L Calcium (8.4-10.2) mg/dL Total Protein (6.3-8.2) g/dL Albumin (3.5-5.0) g/dL Crossmatch See Detail 08/21/16 08/21/16 08/22/16 Range/Units 11:50 19:46 04:42 RBC 2.75 L 2.96 L (3.80-5.40) m/uL Hgb 9.4 L 10.3 L (11.4-16.0) gm/dL Hct 28.7 L 31.3 L (34.0-46.0) % MCV 104.6 H 105.7 H (80.0-100.0) fL MCH (25.0-35.0) pg Neutrophils # 8.1 H (1.3-7.7) k/uL Lymphocytes # 0.9 L (1.0-4.8) k/uL Sodium 135 L (137-145) mmol/L Chloride 111 H (98-107) mmol/L Carbon Dioxide 17 L (22-30) mmol/L Calcium 8.3 L (8.4-10.2) mg/dL Total Protein 5.3 L (6.3-8.2) g/dL Albumin 2.9 L (3.5-5.0) g/dL Crossmatch 08/22/16 08/22/16 Range/Units 04:42 05:29 RBC 2.46 L 2.42 L (3.80-5.40) m/uL Hgb 8.7 L D 8.2 L (11.4-16.0) gm/dL Hct 25.4 L 25.0 L (34.0-46.0) % MCV 103.4 H 103.4 H (80.0-100.0) fL MCH 35.5 H (25.0-35.0) pg Neutrophils # (1.3-7.7) k/uL Lymphocytes # 0.9 L (1.0-4.8) k/uL Sodium (137-145) mmol/L Chloride (98-107) mmol/L Carbon Dioxide (22-30) mmol/L Calcium (8.4-10.2) mg/dL Total Protein (6.3-8.2) g/dL Albumin (3.5-5.0) g/dL Crossmatch Microbiology - Last 24 Hours (Table) 08/20/16 16:03 Blood Culture - Preliminary Blood No Growth after 24 hours Assessment and Plan (1) Intraoperative hematoma of spleen complicating non-spleen procedure Status: Acute
--- NOTE | 2016-08-21 14:44 | CDI ---
In responding to this query, please exercise your independent professional judgment. The [facility] Coding Staff and Clinical Documentation Specialists appreciate your assistance in clarifying documentation, maintaining compliance with coding guidelines, accurately documenting patients condition and capturing severity of illness. The fact that a question is asked does not imply that any particular answer is desired or expected. Communication forms are a method of clarifying documentation and are not made part of the Legal Health Record. Thank you in advance for your clarification. Last Revision, December 2014 Donovan [place] [address] [facility] [place] [address] Documentation Clarification Form Date: 08/21/2016 2:27:00 PM From: Josephine Martin Admit Date: 08/20/2016 6:27:00 PM Patient Name: Cate Martinez Visit Number: [id number] Discharge Date: Dr. Gary Davila/Pooja Carranza SCOUT SNIPER-C A diagnosis of anemia lacks specificity to accurately reflect your patients severity of condition and clarification is needed. Patient history/risk factors: Hyperlipidemia, [place] 2010, Current every day smoker Clinical Indicators: Complains of severe abdominal pain CT of abdomen: free fluid in abdomen consistent with hemorrhage. There is perisplenic and subscapular hematoma of spleen with small laceration. Hemoglobin: 11.6, 10.4 10.0 9.4 Hematocrit: 33.4, 30.7, 29.3, 28.7 Treatment: Monitor Labs, H/H IV Fluids In order to capture the severity of condition, please clarify the type of anemia and etiology if known: Acute blood loss anemia Acute on chronic blood loss anemia Chronic blood loss anemia Iron deficiency anemia Hemolytic anemia Unable to determine Other, please specify Please document in your progress notes and discharge summary in order to capture severity of illness and risk of mortality. Include clinical findings that support your diagnosis. FYI: Press F11 to launch patient chart. Place X here if this finding has no clinical significance, is not applicable or if you are not able to provide any additional documentation. DAD
[2016-08-21] MEDS ORDERED: Potassium Replacement Protocol 1 EACH MISC MISCELLANE PRN (14:47)
[2016-08-21] MEDS ORDERED: Magnesium Replacement Protocol 1 EACH MISC MISCELLANE PRN (14:48)
[2016-08-21] MEDS: MAGNESIUM SULFATE-D5W PMX 1 GM in DEXTROSE/WATER 1 100ML.BAG IVPB SCH ×2 (15:22→16:35)
[2016-08-21] MEDS ORDERED: POTASSIUM CHLORIDE ER 20 MEQ TAB.ER PO SCH (16:00)
[2016-08-21 20:02] LABS: Basophils % (A) 0 %; CH 33.9; CHCM 32.3; Eosinophils # (A) 0.1 k/uL (0-0.7); Eosinophils % (A) 1 %; HCT 31.3 % (34.0-46.0); HGB 10.3 gm/dL (11.4-16.0); Luc # (Auto) 0.16; Luc % (Auto) 2; Lymphocytes # (A) 1.1 k/uL (1.0-4.8); Lymphocytes % (A) 11 %; MCH 34.8 pg (25.0-35.0); MCHC 32.9 g/dL (31.0-37.0); MCV 105.7 fL (80.0-100.0); Macrocytosis Moderate; Mean Platelet Volume 7.1; Monocytes # (A) 0.6 k/uL (0-1.0); Monocytes % (A) 6 %; Neutrophils # (A) 8.1 k/uL (1.3-7.7); Neutrophils % (A) 80 %; RBC 2.96 m/uL (3.80-5.40); RDW 14.1 % (11.5-15.5); WBC 10.1 k/uL (3.8-10.6); WBC (Perox) 10.14
[2016-08-21] MEDS ORDERED: diphenhydrAMINE 50 MG/ML 1 ML VIAL IVP PRN (21:09)
[2016-08-22] MEDS: HYDROmorphone 1 MG/ML 1 ML SYRINGE IVP PRN ×4 (02:30→23:29)
[2016-08-22] MEDS: SODIUM CHLORIDE 0.9% 1,000 ML IV SCH ×4 (02:52→20:14)
[2016-08-22] MEDS ORDERED: SODIUM CHLORIDE 0.9% 1,000 ML IV ONE ×2 (03:50→05:28)
[2016-08-22 04:59] LABS: Basophils % (A) 0 %; CH 33.7; CHCM 32.8; Eosinophils # (A) 0.1 k/uL (0-0.7); Eosinophils % (A) 2 %; HCT 25.4 % (34.0-46.0); HDW 2.82; Luc # (Auto) 0.13; Luc % (Auto) 2; Lymphocytes # (A) 0.9 k/uL (1.0-4.8); Lymphocytes % (A) 12 %; MCH 35.5 pg (25.0-35.0); MCHC 34.3 g/dL (31.0-37.0); MCV 103.4 fL (80.0-100.0); Macrocytosis Slight; Mean Platelet Volume 7.3; Monocytes # (A) 0.5 k/uL (0-1.0); Monocytes % (A) 7 %; Neutrophils % (A) 78 %; RBC 2.46 m/uL (3.80-5.40); RDW 14.1 % (11.5-15.5); WBC 7.6 k/uL (3.8-10.6); WBC (Perox) 8.18
[2016-08-22 05:06] LABS: HGB 8.7 gm/dL (11.4-16.0)
[2016-08-22 05:15] LABS: ALT 20 U/L (9-52); AST 16 U/L (14-36); Alkaline Phosphatase 48 U/L (38-126); Anion Gap 7 mmol/L; Blood Urea Nitrogen 13 mg/dL (7-17); Calcium 8.3 mg/dL (8.4-10.2); Carbon Dioxide 17 mmol/L (22-30); Chloride 111 mmol/L (98-107); Glucose 92 mg/dL (74-99); Magnesium 2.1 mg/dL (1.6-2.3); Non-African American GFR(MDRD) >60 (>60 ml/min/1.73 sqM); Phosphorous 4.3 mg/dL (2.5-4.5); Sodium 135 mmol/L (137-145); Total Bilirubin 0.5 mg/dL (0.2-1.3); Total Protein 5.3 g/dL (6.3-8.2)
[2016-08-22] MEDS ORDERED: RX INFO: IV CONTRAST WAS GIVEN 1 EACH MISC MISCELLANE PRN (05:19)
[2016-08-22] MEDS ORDERED: NOREPINEPHRIN 4 MG-0.9% NS PMX 4 MG/250 ML ML IV ONE (05:28)
[2016-08-22] MEDS ORDERED: NOREPINEPHRIN 4 MG-0.9% NS PMX 4 MG/250 ML ML IV SCH (05:30)
[2016-08-22 05:49] LABS: CH 33.5; CHCM 32.6; HDW 2.86; HGB 8.2 gm/dL (11.4-16.0); MCHC 32.9 g/dL (31.0-37.0); MCV 103.4 fL (80.0-100.0); Macrocytosis Slight; Mean Platelet Volume 8.2; RBC 2.42 m/uL (3.80-5.40); RDW 14.1 % (11.5-15.5); WBC 8.3 k/uL (3.8-10.6)
--- NOTE | 2016-08-22 06:23 | P.PN ---
Progress Note - Text 66-year-old woman across [place] Hematoma of the Spleen. This Morning Her Hemoglobin Dropped from 10.3 to 8.7. At Which Time I Was paged. Her systolic blood pressure also went dpown to 70. I Ordered Repeat CBC Type and Cross Stat and stat Computed Tomography Scan. This Showed a Further fall of Her Hemoglobin to 8.2. A Fluid Bolus to b e followe by [facility] on availability Was Ordered. The OR Team Was Called in and at This Time Awaiting the Team for the Operating Room. Her CT scan Was Done and shows an increase in the size of the hematoma. She Has Been Placed upon Pressors Maintaining Her Systolic Pressure above 100. A Second IV Line Has Been Obtained. I Discussed the Indications of Procedure and Complications with the Patient and Have Informed the Patient's Family. We Will Proceed As Soon As the Operating Room Is Ready
--- NOTE | 2016-08-22 06:41 | CT ---
EXAM: CT Abdomen and Pelvis With Intravenous Contrast CLINICAL HISTORY: Reason: Splenic bleed TECHNIQUE: Axial computed tomography images of the abdomen and pelvis with intravenous contrast. CTDI is 15.80 mGy and DLP is 647.80 mGy-cm. This CT exam was performed using one or more of the following dose reduction techniques: automated exposure control, adjustment of the mA and/or kV according to patient size, and/or use of iterative reconstruction technique. COMPARISON: CT of the abdomen/pelvis dated 08/21/2016. FINDINGS: Lower thorax: Small/moderate left pleural effusion, interval increase in size since prior study. Trace right pleural effusion likely present. Dependent atelectasis involving both lower lobes, interval worsening since prior study. ABDOMEN: Liver: Unremarkable. No mass. Gallbladder and bile ducts: Unremarkable. No calcified stones. No ductal dilation. Pancreas: Unremarkable. No mass. No ductal dilation. Spleen: Subcapsular and perisplenic hematoma again seen. Interval increase in size of the subcapsular hematoma, now measuring up to 3.2 cm in thickness, previously measuring up to 2.2 cm in thickness. Essentially unchanged perisplenic hematoma, measuring approximately 2.2 cm in thickness. Inferior pole laceration is now again seen, measuring up to 1.1 cm. Adrenals: Unremarkable. No mass. Kidneys and ureters: Unremarkable. No solid mass. No hydronephrosis. Stomach and bowel: Unremarkable. No obstruction. No mucosal thickening. Appendix: No findings to suggest acute appendicitis. PELVIS: Bladder: Inflated Thibodeaux catheter seen within a collapsed urinary bladder. Reproductive: Unremarkable as visualized. ABDOMEN and PELVIS: Intraperitoneal space: Unremarkable. No free air. No significant fluid collection. Bones/joints: Patient status post L3-L5 spinal fusion with bilateral screws and rods. Moderate/severe degenerative changes are again noted at the L2-L3 disc space. No acute fracture. No dislocation. Soft tissues: Unremarkable. Vasculature: Moderate atherosclerotic vascular calcifications involving the abdominal aorta and its branches. No abdominal aortic aneurysm. Lymph nodes: Unremarkable. No enlarged lymph nodes. IMPRESSION: 1. Interval increase in size of the subcapsular hematoma, now measuring up to 3.2 cm in thickness from 2.2 cm in thickness. Stable perisplenic hematoma. 1.1 cm laceration now seen in the lower pole of the spleen. 2. Small/moderate left pleural effusion, interval increase in size since prior study. Trace right pleural effusion likely present. An atelectasis involving both lower lobes, middle worsening since prior study. Superimposed infection cannot be definitively excluded.
[2016-08-22] MEDS ORDERED: ETOMIDATE 2 MG/ML 10 ML VIAL ONE (06:59)
[2016-08-22] MEDS ORDERED: HYDROmorphone (PF) 1 MG/ML ONE (06:59)
[2016-08-22] MEDS ORDERED: ROCURONIUM BROMIDE 10 MG/ML 10 ML VIAL IV ONE (06:59)
[2016-08-22] MEDS ORDERED: SUCCINYLCHOLINE CHLORIDE 100 MG/5 ML SYR IV ONE (06:59)
[2016-08-22] MEDS ORDERED: LIDOCAINE 1% INJ 10MG/ML (20 ML MDV) ONE (06:59)
[2016-08-22] MEDS ORDERED: MIDAZOLAM 2 MG/2 ML VIAL ONE (06:59)
[2016-08-22] MEDS ORDERED: fentaNYL (PF) 50 MCG/ML 2 ML AMP ONE (06:59)
[2016-08-22] MEDS ORDERED: SODIUM CHLORIDE 0.9% 50 ML with ceFAZolin 2,000 MG IV ONE ×2 (07:16)
[2016-08-22] MEDS ORDERED: LACTATED RINGERS 1,000 ML IV ONE (07:16)
[2016-08-22] MEDS ORDERED: SODIUM CHLORIDE 0.9% 500 ML IV ONE ×2 (07:16)
[2016-08-22] MEDS ORDERED: IV FLUID CONTINUATION 1,000 ML IV ONE (07:16)
[2016-08-22] MEDS: IPRATROPIUM-ALBUTEROL 3 ML NEB INHALATION SCH ×4 (07:20→19:36)
[2016-08-22 08:27] LABS: CH 33.2; CHCM 33.4; HCT 30.3 % (34.0-46.0); HGB 10.5 gm/dL (11.4-16.0); MCH 34.5 pg (25.0-35.0); MCHC 34.6 g/dL (31.0-37.0); Macrocytosis Slight; RBC 3.03 m/uL (3.80-5.40); RDW 14.6 % (11.5-15.5); WBC 12.7 k/uL (3.8-10.6)
--- NOTE | 2016-08-22 08:31 | P.OP ---
Date of Procedure: 08/22/16 Preoperative Diagnosis: Hematoma of the spleen Postoperative Diagnosis: Hematoma of the spleen, laceration of the spleen Procedure(s) Performed: Exploratory laparotomy with lysis of adhesions and splenectomy Implants: Anesthesia: ASHLEYA Surgeon: Gary Davila Dairy Frozen Manager #1: Jossy Muñoz Estimated Blood Loss (ml): 150 Pathology: other Condition: stable Disposition: PACU Indications for Procedure: Operative Findings: Large hematoma of the spleen with laceration Description of Procedure: Patient is a 66-year-old female who had a colonoscopy about a week ago she presented with abdominal pain 48 hours ago and was diagnosed as having a splenic hematoma. Patient was 11.6 and after admission dropped down to 10.3 to 9.4 but she remained hemodynamically stable. Computed tomography scan was repeated and only showed an increase in 0.2 cm of the hematoma. Since the patient was hemodynamically stable and she had received fluids at that time decision was made to maintain the patient in the ICU with interval CBCs and monitor her progress. She stabilized with a hemoglobin of 10.3 to August 21 but early childhood director she dropped her pressures to a systolic of 70 with a hemoglobin dropping down initially to 8.7 then 8.2. Due to her hemodynamic instability and falling hemoglobin from decision was made to take it to the operating room for a splenectomy. Informed consent was obtained from the patient patient's family was informed. She was identified in the ICU with consent was taken. She was taken directly from the ICU room to the operating room where she was intubated and given general anesthesia with endotracheal intubation an arterial line was placed by anesthesia. The abdomen was prepped and draped in usual scissors surgical fashion after which an appropriate timeout was called and the patient received 2 g of Ancef and SCDs. Midline incision was made with the help of electrocautery and deepened to skin and subcutissue extended initially down to the umbilicus was deepened through skin and subcutis tissue into the fascia and abdominal cavity was entered running into adhesions approximately handbreadth above the umbilicus it was taken down sharply as well as with electrocautery. Once appropriate amount of space had been created incision was extended superiorly all the way up to the xiphisternum. A significant amount of adhesions of the omentum to the lateral abdominal wall which taken down with the help of LigaSure. Furthermore the spleen itself was completely encapsulated with adhesions from the omentum itself. The sac was opened with the help of LigaSure after which the spleen was gently delivered by blunt dissection and dissecting free the surrounding attachments to the colon and the anterior abdominal wall and the diaphragm. Once it was delivered into the field the hilum was inspected short gastric vessels were taken after ligating with an 0 silk and transecting sharply with the help of a scissors. Attention was turned to the hilum where the splenic vessels were closely adherent to the pancreas initially was clamped and tied and transected but due to the involvement of the tail of the pancreas vascular load Endo echelon stapler was fired across it was crossing through the vessels as well as the tip of the tail of the pancreas. The spleen was thus completely removed. Inspection was done of the left upper quadrant there was no active bleeding abdomen was thoroughly irrigated and sucked dry there was no bleeding at this time. The vessels and the lines were inspected and they all looked secure in terms of the blood vessels in the pancreas. The round channel drain was placed in the left upper quadrant and secured in the left lower quadrant area with 3-0 nylon. The midline was closed with the help of running single strand 1 PDS and a CT1. Subclavius thoroughly irrigated and skin was closed with sukh. Opteform dressing was applied. The patient remained stable throughout the procedure she received 2 units of blood. He was left intubated and transferred to the ICU in critical condition but stable. Dr Regino Bañuelos was present thourghout the case as a co-surgeron.
--- NOTE | 2016-08-22 09:34 | XR ---
EXAMINATION TYPE: XR chest 1V portable DATE OF EXAM: 08/22/2016 CLINICAL HISTORY: Difficulty breathing had to be intubated. TECHNIQUE: Single AP portable semiupright view of the chest is obtained. COMPARISON: Chest x-ray from 2 days earlier FINDINGS: There is new endotracheal tube with tip above aortic knob below clavicular margin, approxi mately 5 to 6 cm above sunny. There is new orogastric tube just projecting below left hemidiaphragm. Side port is in distal esophagus recommend advancing 7 to 8 cm. Cardiac silhouette size is upper limits of normal currently more prominent than prior study. There is new mild central vascular congestion and interstitial edema. There is new small left pleural effusio n suspected. There is patchy bibasilar atelectasis. Osseous structures are intact. Percutaneous drain age catheter left upper quadrant is noted. IMPRESSION: 1. New ET satisfactory in position. 2. New OGT has side port in distal esophagus recommend advancing 7 to 8 cm. 3. There is new mild central vascular congestion and interstitial edema with new patchy bibasilar ate lectasis and/or infiltrate noted.
[2016-08-22 09:35] LABS: ABG Base Excess -11.9 mmol/L; ABG HCO3 16 mmol/L (21-25); ABG Oxygen Saturation 96.6 % (94-97); ABG PCO2 51 mmHg (35-45); ABG PH 7.12 (7.35-7.45); ABG PO2 115 mmHg (83-108); ABG TCO2 17 mmol/L (19-24)
[2016-08-22 09:37] LABS: Glucose,Whole Blood 121 mg/dL (75-99)
[2016-08-22] MEDS: SERTRALINE 100 MG TAB PO SCH (10:43)
[2016-08-22] MEDS: PANTOPRAZOLE 40 MG/10 ML VIAL IV SCH ×2 (10:43→20:12)
[2016-08-22 11:34] LABS: ABG Base Excess -10.2 mmol/L; ABG HCO3 17 mmol/L (21-25); ABG Oxygen Saturation 94.7 % (94-97); ABG PCO2 54 mmHg (35-45); ABG PH 7.13 (7.35-7.45); ABG PO2 98 mmHg (83-108); ABG TCO2 19 mmol/L (19-24)
--- NOTE | 2016-08-22 11:59 | P.PN ---
Subjective This is a very pleasant 66-year-old female patient who follows with Dr. Cuenca as her primary care physician. She has a history of hyperlipidemia, myocardial infarction, anxiety/depression, chronic and ongoing tobacco dependence. She had undergone a colonoscopy on 08/14/[address] Jacob. She was noted to have mild sigmoid diverticulosis but no evidence of acute diverticulitis, strictures, polyps or cancer. She presented here yesterday with complaints of bloating and abdominal pain. Abdominal CT scan today reveals a new small left pleural effusion and trace right pleural effusion. There is some bilateral dependent atelectasis which is new compared to yesterday's. There is also interval increase in size in the subcapsular and. Splenic hematoma. There is a noted 1 cm splenic laceration and she had been seen and evaluated by Dr. Davila. She is seen today in the intensive care unit and consultation. She is awake and alert in no acute distress. She does have abdominal pain and discomfort she does have some worsening shortness of breath. She is maintaining O2 saturations in the mid 90s on 3 L/m per nasal cannula. She's been hemodynamically stable. Not on any pressors. She is receiving IV 0.9 normal saline at 50 MLS per hour. The patient is seen again today 08/22/2016 in the intensive care unit. She did have issues with hypotension and continued increasing abdominal pain and had subsequently undergone an exploratory laparotomy with lysis of adhesions and splenectomy this a.m. by Dr. Davila. She was returned intubated and on the mechanical ventilator. Initial settings assist control of 12, tidal volume 450 , FiO2 50% and a PEEP of 5. Morning blood gases revealed a PaO2 of 115, pCO2 51 and a pH of 7.12. Subsequently, her assist-control rate was increased to 24 tidal volume down to 350 with FiO2 of 40% and a PEEP of 5. She has received Dilaudid. She is currently receiving 0.9 normal saline at 100 MLS per hour. She did receive one fluid bolus for borderline blood pressure. Her blood pressure also dropped to 8.2 and she is status post 2 units of packed red blood cells. Current hemoglobin 10.5. She has been hemodynamically stable. The norepinephrine is off. Currently on antibiotics in the form of cefazolin. She is receiving bronchodilators every 4 hours. Objective - Vital Signs Vital signs: Vital Signs Temp 98.4 F 08/22/16 08:49 Pulse 89 08/22/16 11:39 Resp 14 08/22/16 11:00 BP 125/69 08/22/16 09:19 Pulse Ox 97 08/22/16 11:00 Intake & Output 08/21/16 08/22/16 08/22/16 18:59 06:59 18:59 Intake Total 800 1200 2170 Output Total 450 562 3974 Balance 148 650 255 Weight 62.4 kg 66.8 kg Intake: IV 800 1200 1550 Magnesium Sulfate-D5w Pmx 200 1 gm In Dextrose/Water 1 100ml.bag @ 100 mls/hr IVPB Q1H REVA Rx#: [id number] Sodium Chloride 0.9% 1, 600 1200 400 000 ml @ 100 mls/hr IV . Q10H REVA Rx#:[id number] Blood Product 0 620 Rc As-1 Unit 0 310 [id number] Rc As-1 Unit 310 [id number] Output: Urine 421 670 0268 Estimated Blood Loss 500 Other: Voiding Method Indwelling Catheter Indwelling Catheter Indwelling Catheter # Voids 0 ABP, PAP, CO, CI - Last Documented Arterial Blood Pressure 123/59 - Exam GENERAL EXAM: Sedated, intubated.. HEAD: Normocephalic. EYES: Normal reaction of pupils, equal size. NOSE: Clear with pink turbinates. THROAT: Oral endotracheal tube and gastric tube secured in place. NECK: No masses, no JVD. CHEST: No chest wall deformity. LUNGS: Equal air entry with no crackles, wheeze, rhonchi or dullness. CVS: S1 and S2 normal with no audible murmurs, regular rhythm. ABDOMEN: Soft. Surgical dressing dry and intact. KADE drain in place.. SPINE: No scoliosis or deformity SKIN: No rashes Extremities: There is trace peripheral edema. No clubbing, no cyanosis. Peripheral pulses are intact. - Labs CBC & Chem 7: 08/22/16 08:10 08/22/16 04:42 Labs: Abnormal Lab Results - Last 24 Hours (Table) 08/20/16 08/21/16 08/21/16 Range/Units 16:03 11:50 19:46 WBC (3.8-10.6) k/uL RBC 2.75 L 2.96 L (3.80-5.40) m/uL Hgb 9.4 L 10.3 L (11.4-16.0) gm/dL Hct 28.7 L 31.3 L (34.0-46.0) % MCV 104.6 H 105.7 H (80.0-100.0) fL MCH (25.0-35.0) pg Neutrophils # 8.1 H (1.3-7.7) k/uL Lymphocytes # 0.9 L (1.0-4.8) k/uL ABG pH (7.35-7.45) ABG pCO2 (35-45) mmHg ABG pO2 (83-108) mmHg ABG HCO3 (21-25) mmol/L ABG Total CO2 (19-24) mmol/L Sodium (137-145) mmol/L Chloride (98-107) mmol/L Carbon Dioxide (22-30) mmol/L POC Glucose (mg/dL) (75-99) mg/dL Calcium (8.4-10.2) mg/dL Total Protein (6.3-8.2) g/dL Albumin (3.5-5.0) g/dL Crossmatch See Detail 08/22/16 08/22/16 08/22/16 Range/Units 04:42 04:42 05:29 WBC (3.8-10.6) k/uL RBC 2.46 L 2.42 L (3.80-5.40) m/uL Hgb 8.7 L D 8.2 L (11.4-16.0) gm/dL Hct 25.4 L 25.0 L (34.0-46.0) % MCV 103.4 H 103.4 H (80.0-100.0) fL MCH 35.5 H (25.0-35.0) pg Neutrophils # (1.3-7.7) k/uL Lymphocytes # 0.9 L (1.0-4.8) k/uL ABG pH (7.35-7.45) ABG pCO2 (35-45) mmHg ABG pO2 (83-108) mmHg ABG HCO3 (21-25) mmol/L ABG Total CO2 (19-24) mmol/L Sodium 135 L (137-145) mmol/L Chloride 111 H (98-107) mmol/L Carbon Dioxide 17 L (22-30) mmol/L POC Glucose (mg/dL) (75-99) mg/dL Calcium 8.3 L (8.4-10.2) mg/dL Total Protein 5.3 L (6.3-8.2) g/dL Albumin 2.9 L (3.5-5.0) g/dL Crossmatch 08/22/16 08/22/16 08/22/16 Range/Units 08:10 09:14 09:36 WBC 12.7 H (3.8-10.6) k/uL RBC 3.03 L (3.80-5.40) m/uL Hgb 10.5 L (11.4-16.0) gm/dL Hct 30.3 L (34.0-46.0) % MCV (80.0-100.0) fL MCH (25.0-35.0) pg Neutrophils # (1.3-7.7) k/uL Lymphocytes # (1.0-4.8) k/uL ABG pH 7.12 L* (7.35-7.45) ABG pCO2 51 H (35-45) mmHg ABG pO2 115 H (83-108) mmHg ABG HCO3 16 L (21-25) mmol/L ABG Total CO2 17 L (19-24) mmol/L Sodium (137-145) mmol/L Chloride (98-107) mmol/L Carbon Dioxide (22-30) mmol/L POC Glucose (mg/dL) 121 H (75-99) mg/dL Calcium (8.4-10.2) mg/dL Total Protein (6.3-8.2) g/dL Albumin (3.5-5.0) g/dL Crossmatch 08/22/16 Range/Units 11:25 WBC (3.8-10.6) k/uL RBC (3.80-5.40) m/uL Hgb (11.4-16.0) gm/dL Hct (34.0-46.0) % MCV (80.0-100.0) fL MCH (25.0-35.0) pg Neutrophils # (1.3-7.7) k/uL Lymphocytes # (1.0-4.8) k/uL ABG pH 7.13 L* (7.35-7.45) ABG pCO2 54 H (35-45) mmHg ABG pO2 (83-108) mmHg ABG HCO3 17 L (21-25) mmol/L ABG Total CO2 (19-24) mmol/L Sodium (137-145) mmol/L Chloride (98-107) mmol/L Carbon Dioxide (22-30) mmol/L POC Glucose (mg/dL) (75-99) mg/dL Calcium (8.4-10.2) mg/dL Total Protein (6.3-8.2) g/dL Albumin (3.5-5.0) g/dL Crossmatch Microbiology - Last 24 Hours (Table) 08/20/16 16:03 Blood Culture - Preliminary Blood No Growth after 24 hours Assessment and Plan Plan: Impression: #1 Abdominal pain secondary to splenic laceration and hematoma. Status post exploratory laparotomy with lysis of adhesions and splenectomy. Postoperative day #0. #2 Anemia secondary to above as a postoperative complication from colonoscopy, status post 2 units of packed red blood cells. Current hemoglobin 10.5. #3 Postoperative hypoxemia requiring mechanical ventilation in the intensive care unit as an expected outcome of surgical procedure. #4 Myocardial infarction, history of. #5 History of anxiety/depression. #6 Chronic and ongoing tobacco dependence. #7 Hyperlipidemia. Plan: The patient was seen and evaluated by Dr. Nation. Her chest x-ray, ABGs and labs were reviewed. Once the patient is more fully awake we'll plan to give her weaning trial and obtain parameters prior to extubation. She is currently on a PSV of 10 and a CPAP of 5. In the interim, we'll continue with her current medications including bronchodilators every 4 hours. She is on Lovenox for DVT prophylaxis Protonix for GI prophylaxis. Continue antibiotics in the form of cefazolin. We'll continue to follow and make further recommendations based on her clinical status. Critical care time 38 minutes.
[2016-08-22] MEDS: CHOLECALCIFEROL 400 UNIT TAB PO SCH (12:06)
[2016-08-22 13:56] LABS: ABG Base Excess -10.3 mmol/L; ABG HCO3 17 mmol/L (21-25); ABG Oxygen Saturation 96.7 % (94-97); ABG PCO2 47 mmHg (35-45); ABG PH 7.17 (7.35-7.45); ABG PO2 110 mmHg (83-108); ABG TCO2 18 mmol/L (19-24)
[2016-08-22] MEDS ORDERED: PROPOFOL 50 ML IV ONE (14:21)
[2016-08-22] MEDS ORDERED: SODIUM BICARB 8.4% 50 ML SYR (1 MEQ/ML) IV STA ×3 (14:31→19:50)
[2016-08-22] MEDS ORDERED: PROPOFOL 500 MG in EMPTY BAG 1 BAG IV SCH (16:00)
[2016-08-22] MEDS ORDERED: ceFAZolin 2 GM in SODIUM CHLORIDE 0.9% 100 ML IVPB SCH (16:00)
[2016-08-22 16:48] LABS: ABG PH 7.21 (7.35-7.45)
[2016-08-22 16:49] LABS: ABG HCO3 17 mmol/L (21-25); ABG Oxygen Saturation 95.2 % (94-97); ABG PCO2 43 mmHg (35-45); ABG PO2 93 mmHg (83-108); ABG TCO2 18 mmol/L (19-24)
[2016-08-22 17:44] LABS: ABG PCO2 41 mmHg (35-45); ABG PH 7.24 (7.35-7.45); ABG PO2 95 mmHg (83-108)
[2016-08-22 17:45] LABS: ABG Base Excess -8.8 mmol/L; ABG HCO3 17 mmol/L (21-25); ABG TCO2 19 mmol/L (19-24)
[2016-08-22] MEDS ORDERED: IPRATROPIUM-ALBUTEROL 3 ML NEB INHALATION PRN (20:03)
[2016-08-22 20:26] LABS: ABG Base Excess -9.4 mmol/L; ABG HCO3 17 mmol/L (21-25); ABG PCO2 38 mmHg (35-45); ABG PH 7.26 (7.35-7.45); ABG PO2 88 mmHg (83-108)
--- NOTE | 2016-08-22 20:34 | P.CONS ---
History of Present Illness - Reason for Consult Consult date: 08/22/16 - Chief Complaint Increasing abdominal pain - History of Present Illness Pleasant 66-year-old female who has a known history of myocardial infarction, hyperlipidemia, anxiety and depression as well as a history of tobacco use. Was doing relatively well and had a routine colonoscopy on [address] Plascencia. Other than mild sigmoid diverticulosis no significant illnesses were noted. The note is reviewed with no evidence of any difficulties. However several days later she started to develop some abdominal pain. Because of this she did have evaluation and was seen by surgery. Computed tomography scan was requested. This revealed evidence of a splenic hematoma subcapsular nature as well as a splenic laceration. The patient was stable and being monitored. She over then had evidence of some hemodynamic instability required ICU evaluation. The patient then had worsening as was taken to the operative room today for the splenectomy. Due to worsening findings on the computed tomography scan and her hemodynamic instability. The patient is now postoperative and is definitely more stable especially after transfusion. There are plans for extubation today if she shows further improvement. Review of Systems ROS unobtainable: due to endotracheal tube Past Medical History Past Medical History: Hyperlipidemia, Myocardial Infarction ([place]) Additional Past Medical History / Comment(s): TROUBLE SWALLOWING Last Myocardial Infarction Date:: 2010 History of Any Multi-Drug Resistant Organisms: None Reported Past Surgical History: Back Surgery, Joint Replacement Additional Past Surgical History / Comment(s): left knee replacement 2003, fusion of L3-L4-L5 from broken back, tubal ligation , tendon release right elbow ,BACK SURGERY X3, Past Anesthesia/Blood Transfusion Reactions: No Reported Reaction Past Psychological History: Anxiety, Depression Smoking Status: Current every day smoker Past Alcohol Use History: Occasional Past Drug Use History: Marijuana Additional Drug Use History / Comment(s): pt states she has her medical marijuana card, uses 2 times a week - Past Family History Mother Family Medical History: Diabetes Mellitus Additional Family Medical History / Comment(s): alzheimers Sister(s) Family Medical History: Cancer Additional Family Medical History / Comment(s): breast cancer Brother(s) Family Medical History: Renal Disease Additional Family Medical History / Comment(s): kidney failure Medications and Allergies Home Medications and Allergies Comment(s): Current Medications Albuterol/Ipratropium (Duoneb 0.5 Mg-3 Mg/3 Ml Soln) 3 ml INHALATION RT-QID REVA Albuterol/Ipratropium (Duoneb 0.5 Mg-3 Mg/3 Ml Soln) 3 ml INHALATION RT-Q2H PRN PRN Reason: Shortness Of Breath Or Wheezing Chlorhexidine Gluconate (Peridex) 15 ml MUCOUS MEM BID [facility] Cholecalciferol (Vitamin D3) 400 unit PO 1200 REVA Last Admin: 08/22/16 12:06 Dose: 400 unit Diphenhydramine HCl (Benadryl) 25 mg IVP Q6HR PRN PRN Reason: Allergy Symptoms Enoxaparin Sodium (Lovenox) 40 mg SQ DAILY [facility] Hydromorphone HCl (Dilaudid) 1.5 mg IVP Q2H PRN PRN Reason: Pain Scale 6 to 10 Last Admin: 08/22/16 09:31 Dose: 1.5 mg Sodium Chloride (Saline 0.9%) 1,000 mls @ 100 mls/hr IV .Q10H [facility] Last Admin: 08/22/16 20:14 Dose: 100 mls/hr Norepinephrine Bitartrate (Levophed-0.9% Nacl 4 Mg/250ml Pmx) 4 mg in 250 mls @ 0 mls/hr IV .Q0M [facility]; Titrate PRN Reason: Protocol Last Admin: 08/22/16 06:15 Dose: 2 mcg/min, 7.5 mls/hr Cefazolin Sodium 2 gm/ Sodium (Chloride) 100 mls @ 100 mls/hr IVPB Q8HR [facility] Last Admin: 08/22/16 15:58 Dose: 100 mls/hr Propofol 500 mg/ IV Solution 50 mls @ 0 mls/hr IV .Q0M REVA; Titrate PRN Reason: Protocol Last Titration: 08/22/16 18:25 Dose: 0 mcg/kg/min, 0 mls/hr Miscellaneous Information (Rx Info: Iv Contrast Was Given) 1 each MISCELLANE DAILY PRN PRN Reason: Per Protocol Stop: 08/23/16 04:22 Miscellaneous Information (Rx Info: Iv Contrast Was Given) 1 each MISCELLANE DAILY PRN PRN Reason: Per Protocol Stop: 08/23/16 11:58 Miscellaneous Information (Potassium Per Protocol) 1 each MISCELLANE DAILY PRN ; Protocol PRN Reason: Per Protocol Miscellaneous Information (Magnesium Per Protocol) 1 each MISCELLANE DAILY PRN ; Protocol PRN Reason: Per Protocol Miscellaneous Information (Rx Info: Iv Contrast Was Given) 1 each MISCELLANE DAILY PRN PRN Reason: Per Protocol Stop: 08/24/16 05:20 Naloxone HCl (Narcan) 0.2 mg IV Q2M PRN PRN Reason: Opioid Reversal Pantoprazole Sodium (Protonix) 40 mg IV BID [facility] Last Admin: 08/22/16 20:12 Dose: 40 mg Sertraline HCl (Zoloft) 100 mg PO DAILY [facility] Last Admin: 08/22/16 10:43 Dose: 100 mg Home Medications Medication Instructions Recorded Confirmed Type Cholecalciferol [Vitamin D3] 400 unit PO DAILY 06/01/16 08/20/16 History Sertraline [Zoloft] 100 mg PO DAILY 06/01/16 08/20/16 History Allergies Allergy/AdvReac Type Severity Reaction Status Date / Time levofloxacin [From Levaquin] Allergy Itching Verified 08/20/16 15:53 codeine AdvReac MIGRAINE Verified 08/20/16 15:53 Physical Exam Vitals: Vital Signs Temp Pulse Pulse Resp BP BP Pulse Ox 08/22/16 19:00 92 11 L 97 08/22/16 18:00 90 26 H 98 08/22/16 17:00 88 20 98 08/22/16 16:00 97.6 F 90 22 98 08/22/16 15:46 87 08/22/16 15:27 89 08/22/16 15:00 87 23 98 08/22/16 14:00 93 13 99 08/22/16 13:00 94 11 L 98 08/22/16 12:00 97.6 F 94 10 L 98 08/22/16 11:53 88 08/22/16 11:39 89 08/22/16 11:00 93 14 97 08/22/16 10:30 90 12 96 08/22/16 10:00 81 23 97 08/22/16 09:45 84 23 96 08/22/16 09:30 94 11 L 97 08/22/16 09:19 120 H 20 125/69 88 L 08/22/16 09:15 99 12 97 08/22/16 09:00 107 H 59 H 98 08/22/16 08:49 98.4 F 101 H 12 154/65 98 08/22/16 06:29 98.4 F 82 20 106/61 97 08/22/16 06:19 98.3 F 85 26 H 121/63 96 08/22/16 05:00 85 18 79/50 97 08/22/16 04:00 97.5 F L 94 20 74/46 95 08/22/16 03:00 89 15 93/54 94 L 08/22/16 02:00 94 16 90/52 96 08/22/16 01:00 96 14 97/64 96 08/22/16 00:00 98.4 F 97 18 94/57 97 08/21/16 23:23 98 16 94/61 95 08/21/16 23:00 100 15 94/61 95 08/21/16 22:00 113 H 15 94/61 94 L 08/21/16 21:00 97 14 94/62 95 Intake and Output 08/22/16 08/22/16 08/22/16 06:59 14:59 22:59 Intake Total 800 2470 636.237 Output Total 335 2250 570 Balance 465 220 66.237 Intake: IV 800 1850 600 Sodium Chloride 0.9% 1, 800 700 500 000 ml @ 100 mls/hr IV . Q10H REVA Rx#:[id number] ceFAZolin 2 gm In Sodium 100 Chloride 0.9% 100 ml @ 100 mls/hr IVPB Q8HR REVA Rx#:[id number] Intake, IV Titration 36.237 Amount Propofol 500 mg In Empty 36.237 Bag 1 bag @ Titrate IV . Q0M REVA Rx#:[id number] Blood Product 0 620 Rc As-1 Unit 0 310 [id number] Rc As-1 Unit 310 [id number] Output: Urine 335 1750 570 Estimated Blood Loss 500 Other: Voiding Method Indwelling Catheter Indwelling Catheter Indwelling Catheter Weight 66.8 kg ABP, PAP, CO, CI - Last 8 Hours Arterial Blood Pressure 136/61 Arterial Blood Pressure 138/62 Arterial Blood Pressure 133/59 Arterial Blood Pressure 140/60 Arterial Blood Pressure 121/56 Arterial Blood Pressure 125/60 Arterial Blood Pressure 107/53 66-year-old female who is intubated minimally sedated with attempts for weaning occurring this morning. Patient appears to be comfortable. HEENT: Anicteric conjunctiva are pink and moist nasal mucosa grossly intact without significant lesions, there is no thrush. No lesions around the endotracheal tube Neck: The neck is supple without significant lymphadenopathy or thyromegaly. Lungs: Good bilateral air entry without significant crackles or wheezing. There is no significant bronchial sounds. There is no egophony or dullness. Heart: Regular rate and rhythm with an audible S1-S2, no S3 no S4. There is no significant murmur click or rub, PMI was nondisplaced. Abdomen: Is directly postoperative period minimal drainage is noted on the surgical dressings. Abdomen is slightly distended, soft but tender on exam. It is not rigid Extremities: The upper extremities have excellent pulses they are symmetric, no significant petechiae or telangiectasia. No splinter hemorrhages were noted. The lower extremities are free from significant edema. The peripheral pulses were 2+ and symmetric. Neuro: Arousable and following commands no acute gross focal sensory motor deficits are noted that she is still somewhat sedated. Results CBC & Chem 7: 08/22/16 08:10 08/22/16 04:42 Labs: Abnormal Lab Results - Last 24 Hours (Table) 08/20/16 08/22/16 08/22/16 Range/Units 16:03 04:42 04:42 WBC (3.8-10.6) k/uL RBC 2.46 L (3.80-5.40) m/uL Hgb 8.7 L D (11.4-16.0) gm/dL Hct 25.4 L (34.0-46.0) % MCV 103.4 H (80.0-100.0) fL MCH 35.5 H (25.0-35.0) pg Lymphocytes # 0.9 L (1.0-4.8) k/uL ABG pH (7.35-7.45) ABG pCO2 (35-45) mmHg ABG pO2 (83-108) mmHg ABG HCO3 (21-25) mmol/L ABG Total CO2 (19-24) mmol/L Sodium 135 L (137-145) mmol/L Chloride 111 H (98-107) mmol/L Carbon Dioxide 17 L (22-30) mmol/L POC Glucose (mg/dL) (75-99) mg/dL Plasma Lactic Acid Steven (0.7-2.0) mmol/L Calcium 8.3 L (8.4-10.2) mg/dL Total Protein 5.3 L (6.3-8.2) g/dL Albumin 2.9 L (3.5-5.0) g/dL Crossmatch See Detail 08/22/16 08/22/16 08/22/16 Range/Units 05:29 08:10 09:14 WBC 12.7 H (3.8-10.6) k/uL RBC 2.42 L 3.03 L (3.80-5.40) m/uL Hgb 8.2 L 10.5 L (11.4-16.0) gm/dL Hct 25.0 L 30.3 L (34.0-46.0) % MCV 103.4 H (80.0-100.0) fL MCH (25.0-35.0) pg Lymphocytes # (1.0-4.8) k/uL ABG pH 7.12 L* (7.35-7.45) ABG pCO2 51 H (35-45) mmHg ABG pO2 115 H (83-108) mmHg ABG HCO3 16 L (21-25) mmol/L ABG Total CO2 17 L (19-24) mmol/L Sodium (137-145) mmol/L Chloride (98-107) mmol/L Carbon Dioxide (22-30) mmol/L POC Glucose (mg/dL) (75-99) mg/dL Plasma Lactic Acid Steven (0.7-2.0) mmol/L Calcium (8.4-10.2) mg/dL Total Protein (6.3-8.2) g/dL Albumin (3.5-5.0) g/dL Crossmatch 08/22/16 08/22/16 08/22/16 Range/Units 09:36 11:25 13:45 WBC (3.8-10.6) k/uL RBC (3.80-5.40) m/uL Hgb (11.4-16.0) gm/dL Hct (34.0-46.0) % MCV (80.0-100.0) fL MCH (25.0-35.0) pg Lymphocytes # (1.0-4.8) k/uL ABG pH 7.13 L* 7.17 L* (7.35-7.45) ABG pCO2 54 H 47 H (35-45) mmHg ABG pO2 110 H (83-108) mmHg ABG HCO3 17 L 17 L (21-25) mmol/L ABG Total CO2 18 L (19-24) mmol/L Sodium (137-145) mmol/L Chloride (98-107) mmol/L Carbon Dioxide (22-30) mmol/L POC Glucose (mg/dL) 121 H (75-99) mg/dL Plasma Lactic Acid Steven (0.7-2.0) mmol/L Calcium (8.4-10.2) mg/dL Total Protein (6.3-8.2) g/dL Albumin (3.5-5.0) g/dL Crossmatch 08/22/16 08/22/16 08/22/16 Range/Units 15:02 16:15 17:30 WBC (3.8-10.6) k/uL RBC (3.80-5.40) m/uL Hgb (11.4-16.0) gm/dL Hct (34.0-46.0) % MCV (80.0-100.0) fL MCH (25.0-35.0) pg Lymphocytes # (1.0-4.8) k/uL ABG pH 7.21 L 7.24 L (7.35-7.45) ABG pCO2 (35-45) mmHg ABG pO2 (83-108) mmHg ABG HCO3 17 L 17 L (21-25) mmol/L ABG Total CO2 18 L (19-24) mmol/L Sodium (137-145) mmol/L Chloride (98-107) mmol/L Carbon Dioxide (22-30) mmol/L POC Glucose (mg/dL) (75-99) mg/dL Plasma Lactic Acid Steven 0.5 L (0.7-2.0) mmol/L Calcium (8.4-10.2) mg/dL Total Protein (6.3-8.2) g/dL Albumin (3.5-5.0) g/dL Crossmatch Microbiology - Last 24 Hours (Table) 08/20/16 16:03 Blood Culture - Preliminary Blood No Growth after 48 hours Laboratory Results WBC 12.7 k/uL (3.8-10.6) H 07/11/17 08:10 RBC 3.03 m/uL (3.80-5.40) L 08/22/16 08:10 Hgb 10.5 gm/dL (11.4-16.0) L 08/22/16 08:10 Hct 30.3 % (34.0-46.0) L 08/22/16 08:10 MCV 100.0 fL (80.0-100.0) 08/22/16 08:10 MCH 34.5 pg (25.0-35.0) 08/22/16 08:10 MCHC 34.6 g/dL (31.0-37.0) 08/22/16 08:10 RDW 14.6 % (11.5-15.5) 08/22/16 08:10 Plt Count 181 k/uL (150-450) 08/22/16 08:10 Neutrophils % 78 % 08/22/16 04:42 Lymphocytes % 12 % 08/22/16 04:42 Monocytes % 7 % 08/22/16 04:42 Eosinophils % 2 % 08/22/16 04:42 Basophils % 0 % 08/22/16 04:42 Neutrophils # 6.0 k/uL (1.3-7.7) 08/22/16 04:42 Lymphocytes # 0.9 k/uL (1.0-4.8) L 08/22/16 04:42 Monocytes # 0.5 k/uL (0-1.0) 08/22/16 04:42 Eosinophils # 0.1 k/uL (0-0.7) 08/22/16 04:42 Basophils # 0.0 k/uL (0-0.2) 08/22/16 04:42 Macrocytosis Slight 08/22/16 08:10 PT 10.6 sec (9.0-12.0) 08/21/16 06:39 INR 1.1 (<1.1) 08/21/16 06:39 APTT 24.5 sec (22.0-30.0) 08/20/16 16:03 Sample Site [email or web address] 08/22/16 19:20 ABG pH 7.26 (7.35-7.45) L 08/22/16 19:20 ABG pCO2 38 mmHg (35-45) 08/22/16 19:20 ABG pO2 88 mmHg (83-108) 08/22/16 19:20 ABG HCO3 17 mmol/L (21-25) L 08/22/16 19:20 ABG Total CO2 19 mmol/L (19-24) 08/22/16 17:30 ABG O2 Saturation 98.0 % (94-97) H 08/22/16 19:20 ABG Base Excess -9.4 mmol/L 08/22/16 19:20 FiO2 35 % 08/22/16 19:20 Sodium 135 mmol/L (137-145) L 08/22/16 04:42 Potassium 4.0 mmol/L (3.5-5.1) 08/22/16 04:42 Chloride 111 mmol/L (98-107) H 08/22/16 04:42 Carbon Dioxide 17 mmol/L (22-30) L 08/22/16 04:42 Anion Gap 7 mmol/L 08/22/16 04:42 BUN 13 mg/dL (7-17) 08/22/16 04:42 Creatinine 0.90 mg/dL (0.52-1.04) 08/22/16 04:42 Est GFR (MDRD) Af Amer >60 (>60 ml/min/1.73 sqM) 08/22/16 04:42 Est GFR (MDRD) Non-Af >60 (>60 ml/min/1.73 sqM) 08/22/16 04:42 Glucose 92 mg/dL (74-99) 08/22/16 04:42 POC Glucose (mg/dL) 121 mg/dL (75-99) H 08/22/16 09:[address] Grader CAROL Gita Ospina 08/22/16 09:36 Plasma Lactic Acid Steven 0.5 mmol/L (0.7-2.0) L 08/22/16 15:02 Calcium 8.3 mg/dL (8.4-10.2) L 08/22/16 04:42 Phosphorus 4.3 mg/dL (2.5-4.5) 08/22/16 04:42 Magnesium 2.1 mg/dL (1.6-2.3) 08/22/16 04:42 Total Bilirubin 0.5 mg/dL (0.2-1.3) 08/22/16 04:42 AST 16 U/L (14-36) 08/22/16 04:42 ALT 20 U/L (9-52) 08/22/16 04:42 Alkaline Phosphatase 48 U/L (38-126) 08/22/16 04:42 Total Creatine Kinase 41 U/L (30-135) 08/20/16 16:03 CK-MB (CK-2) 0.7 ng/mL (0.0-2.4) 08/20/16 16:03 CK-MB (CK-2) Rel Index 1.7 08/20/16 16:03 Troponin I <0.012 ng/mL (0.000-0.034) 08/20/16 16:03 Total Protein 5.3 g/dL (6.3-8.2) L 08/22/16 04:42 Albumin 2.9 g/dL (3.5-5.0) L 08/22/16 04:42 Amylase <30 U/L (30-110) L 08/20/16 16:03 Lipase 34 U/L (23-300) 08/20/16 16:03 Urine Color Yellow 08/21/16 02:25 Urine Appearance Clear (Clear) 08/21/16 02:25 Urine pH 7.0 (5.0-8.0) 08/21/16 02:25 Ur Specific [place] >1.050 (1.001-1.035) H 08/21/16 02:25 Urine Protein 1+ (Negative) H 08/21/16 02:25 Urine Glucose (UA) Negative (Negative) 08/21/16 02:25 Urine Ketones Negative (Negative) 08/21/16 02:25 Urine Blood Negative (Negative) 08/21/16 02:25 Urine Nitrite Negative (Negative) 08/21/16 02:25 Urine Bilirubin Negative (Negative) 08/21/16 02:25 Urine Urobilinogen <2.0 mg/dL (<2.0) 08/21/16 02:25 Ur Leukocyte Esterase Negative (Negative) 08/21/16 02:25 Urine RBC 1 /hpf (0-5) 08/21/16 02:25 Urine WBC <1 /hpf (0-5) 08/21/16 02:25 Stool Occult Blood Negative (Negative) 08/20/16 16:45 Blood Type A Positive 08/20/16 16:03 Blood Type Recheck No 08/20/16 16:03 Antibody Screen NEGATIVE 08/20/16 16:03 Crossmatch See Detail 08/20/16 16:03 Spec Expiration Date 08/23/2016 - 230208/20/16 16:03 Microbiology 08/20/16 16:03 Blood Blood Culture - Preliminary No Growth after [address] scan - abdomen: image reviewed (Serial CT scans reviewed. 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 Was found evidence of a splenic laceration and hematoma. This worsened and the patient became mechanically unstable necessitating a splenectomy. This is now occurred and the patient is in intensive care unit covering. Likely will be extubated later this morning if possible. The patient will need vaccines that ideally will be given in 2 weeks. Given that the patient does seem to be reliable from all the available data it is ideal to be able to wait 2 weeks to give their vaccines in the postsplenectomy status to maximize their response. At that point in time pneumococcal vaccine which would be the Prevnar 13, meningococcal vaccine, and conjugated Hib vaccine should be given. Flu vaccine when available should also be given. The patient will need to go home with a prescription of Augmentin.(Ongoing directions to start antibiotic therapy at onset of fever and contact medical help at that time. She is at risk of sepsis from a capsular organisms now that she has had a splenectomy. The patient will be followed as indicated through her stay. And then can arrange the follow-up for her [facility] Patient has a mild leukocytosis likely related to the recent procedure, most person status post splenectomy will have an increase in her baseline what blood cell count, her new steady state will be determined over time. Her severe symptomatic anemia has improved status post a splenectomy and transfusion. Status: Acute (2) Splenic laceration Status: Acute (3) S/P splenectomy Status: Acute
[2016-08-22] MEDS ORDERED: CHLORHEXIDINE GLUCONATE 15 ML CUP MUCOUS MEM SCH (21:00)
[2016-08-23] MEDS: AMPICILLIN-SULBACTAM 3 GM in SODIUM CHLORIDE 0.9% 100 ML IVPB SCH ×3 (00:22→15:57)
[2016-08-23 05:02] LABS: Basophils % (A) 0 %; CH 33.4; CHCM 34.1; Eosinophils # (A) 0.1 k/uL (0-0.7); Eosinophils % (A) 1 %; HCT 31.2 % (34.0-46.0); HDW 3.37; HGB 10.9 gm/dL (11.4-16.0); Luc # (Auto) 0.24; Luc % (Auto) 2; Lymphocytes # (A) 0.6 k/uL (1.0-4.8); Lymphocytes % (A) 5 %; MCH 34.3 pg (25.0-35.0); MCHC 34.8 g/dL (31.0-37.0); MCV 98.6 fL (80.0-100.0); Macrocytosis Slight; Monocytes # (A) 1.5 k/uL (0-1.0); Monocytes % (A) 11 %; Neutrophils # (A) 11.4 k/uL (1.3-7.7); Neutrophils % (A) 82 %; RBC 3.17 m/uL (3.80-5.40); RDW 15.3 % (11.5-15.5); WBC 13.8 k/uL (3.8-10.6); WBC (Perox) 13.81
[2016-08-23 05:14] LABS: ALT 20 U/L (9-52); AST 31 U/L (14-36); Alkaline Phosphatase 54 U/L (38-126); Amylase <30 U/L (30-110); Anion Gap 12 mmol/L; Blood Urea Nitrogen 12 mg/dL (7-17); Calcium 8.4 mg/dL (8.4-10.2); Carbon Dioxide 16 mmol/L (22-30); Chloride 114 mmol/L (98-107); Glucose 89 mg/dL (74-99); Magnesium 1.9 mg/dL (1.6-2.3); Non-African American GFR(MDRD) >60 (>60 ml/min/1.73 sqM); Phosphorous 3.6 mg/dL (2.5-4.5); Potassium 3.5 mmol/L (3.5-5.1); Sodium 142 mmol/L (137-145); Total Bilirubin 0.7 mg/dL (0.2-1.3); Total Protein 5.2 g/dL (6.3-8.2)
[2016-08-23] MEDS: HYDROmorphone 1 MG/ML 1 ML SYRINGE IVP PRN ×4 (05:18→20:59)
[2016-08-23] MEDS: SODIUM CHLORIDE 0.9% 1,000 ML IV SCH (06:26)
[2016-08-23] MEDS: MAGNESIUM SULFATE-D5W PMX 1 GM in DEXTROSE/WATER 1 100ML.BAG IVPB SCH ×2 (06:26→07:31)
[2016-08-23] MEDS: POTASSIUM CHLORIDE 10 MEQ, LIDOCAINE 2% INJ 10 MG in SODIUM CHLORIDE 0.9% 100 ML IV SCH ×2 (06:26→07:32)
--- NOTE | 2016-08-23 07:14 | XR ---
EXAMINATION TYPE: XR chest 1V portable DATE OF EXAM: 08/23/2016 Comparison: 08/22/2016 Clinical History: 66-year-old female Tube placement Findings: Rightward patient rotation alters the normal cardiomediastinal contours. The heart is upper limits of normal in size. ET and NG tubes have been removed in the interval. Mild diffuse interstitial promine nce persists with hazy densities at both costophrenic angles. Estrada B lines are suggested. Impression: 1. Interval extubation. Slightly rotated exam. 2. Findings suggest continued CHF with mild pulmonary vascular congestion/interstitial edema. 2. Trace to small effusions with adjacent atelectasis and or consolidation.
[2016-08-23] MEDS: IPRATROPIUM-ALBUTEROL 3 ML NEB INHALATION SCH ×4 (07:35→20:15)
[2016-08-23] MEDS: SERTRALINE 100 MG TAB PO SCH (08:15)
[2016-08-23] MEDS: ENOXAPARIN 40 MG/0.4 ML SYRINGE SQ SCH (08:15)
[2016-08-23] MEDS: PANTOPRAZOLE 40 MG/10 ML VIAL IV SCH ×2 (08:15→20:56)
[2016-08-23] MEDS ORDERED: LORazepam 0.5 MG TAB PO PRN (10:07)
--- NOTE | 2016-08-23 11:12 | P.PN ---
Subjective This is a very pleasant 66-year-old female patient who follows with Dr. Cuenca as her primary care physician. She has a history of hyperlipidemia, myocardial infarction, anxiety/depression, chronic and ongoing tobacco dependence. She had undergone a colonoscopy on 08/14/[address] Jacob. She was noted to have mild sigmoid diverticulosis but no evidence of acute diverticulitis, strictures, polyps or cancer. She presented here yesterday with complaints of bloating and abdominal pain. Abdominal CT scan today reveals a new small left pleural effusion and trace right pleural effusion. There is some bilateral dependent atelectasis which is new compared to yesterday's. There is also interval increase in size in the subcapsular and. Splenic hematoma. There is a noted 1 cm splenic laceration and she had been seen and evaluated by Dr. Davila. She is seen today in the intensive care unit and consultation. She is awake and alert in no acute distress. She does have abdominal pain and discomfort she does have some worsening shortness of breath. She is maintaining O2 saturations in the mid 90s on 3 L/m per nasal cannula. She's been hemodynamically stable. Not on any pressors. She is receiving IV 0.9 normal saline at 50 MLS per hour. The patient is seen again today 08/22/2016 in the intensive care unit. She did have issues with hypotension and continued increasing abdominal pain and had subsequently undergone an exploratory laparotomy with lysis of adhesions and splenectomy this a.m. by Dr. Davila. She was returned intubated and on the mechanical ventilator. Initial settings assist control of 12, tidal volume 450 , FiO2 50% and a PEEP of 5. Morning blood gases revealed a PaO2 of 115, pCO2 51 and a pH of 7.12. Subsequently, her assist-control rate was increased to 24 tidal volume down to 350 with FiO2 of 40% and a PEEP of 5. She has received Dilaudid. She is currently receiving 0.9 normal saline at 100 MLS per hour. She did receive one fluid bolus for borderline blood pressure. Her blood pressure also dropped to 8.2 and she is status post 2 units of packed red blood cells. Current hemoglobin 10.5. She has been hemodynamically stable. The norepinephrine is off. Currently on antibiotics in the form of cefazolin. She is receiving bronchodilators every 4 hours. The patient is seen again today 08/23/2016 in follow-up in the intensive care unit. She was successfully extubated approximately 7 PM last evening. She is seen today in the intensive care unit. She is awake and alert in no acute distress. He is maintaining good O2 saturations in the mid 90s on 3 L/m per nasal cannula. She is currently afebrile. Her abdominal surgical discomfort is fairly well controlled. No significant leukocytosis. Hemoglobin stable at 10.9. Objective - Vital Signs Vital signs: Vital Signs Temp 97.9 F 08/23/16 08:00 Pulse 95 08/23/16 10:00 Resp 26 H 08/23/16 10:00 BP 148/77 08/23/16 10:00 Pulse Ox 94 L 08/23/16 10:00 Intake & Output 08/22/16 08/23/16 08/23/16 18:59 06:59 18:59 Intake Total 3006.237 1300 500 Output Total 2695 1635 450 Balance 311.237 -335 50 Weight 68.9 kg Intake: IV 2350 1300 500 Ampicillin-Sulbactam 3 gm 100 100 In Sodium Chloride 0.9% 100 ml @ 100 mls/hr IVPB Q8HR REVA Rx#:[id number] Magnesium Sulfate-D5w Pmx 100 1 gm In Dextrose/Water 1 100ml.bag @ 100 mls/hr IVPB Q1H REVA Rx#: [id number] Potassium Chloride 10 meq 100 Lidocaine 2% Inj 10 mg In Sodium Chloride 0.9% 100 ml @ 100 mls/hr IV Q1HR REVA Rx#:[id number] Sodium Chloride 0.9% 1, 1100 1200 200 000 ml @ 100 mls/hr IV . Q10H REVA Rx#:[id number] ceFAZolin 2 gm In Sodium 100 Chloride 0.9% 100 ml @ 100 mls/hr IVPB Q8HR REVA Rx#:[id number] Intake, IV Titration 36.237 Amount Propofol 500 mg In Empty 36.237 Bag 1 bag @ Titrate IV . Q0M REVA Rx#:[id number] Blood Product 620 Rc As-1 Unit 310 [id number] Rc As-1 Unit 310 [id number] Output: Drainage 20 Left Abdomen 20 Urine 2195 1615 450 Estimated Blood Loss 500 Other: Voiding Method Indwelling Catheter Indwelling Catheter Bedside Commode ABP, PAP, CO, CI - Last Documented Arterial Blood Pressure 146/71 - Exam GENERAL EXAM: Awake, alert, somewhat anxious. HEAD: Normocephalic. EYES: Normal reaction of pupils, equal size. NOSE: Clear with pink turbinates. THROAT: Oral endotracheal tube and gastric tube secured in place. NECK: No masses, no JVD. CHEST: No chest wall deformity. LUNGS: Equal air entry with no crackles, wheeze, rhonchi or dullness. CVS: S1 and S2 normal with no audible murmurs, regular rhythm. ABDOMEN: Soft. Surgical dressing dry and intact. KADE drain in place.. SPINE: No scoliosis or deformity SKIN: No rashes Extremities: There is trace peripheral edema. No clubbing, no cyanosis. Peripheral pulses are intact. - Labs CBC & Chem 7: 08/23/16 04:45 08/23/16 04:45 Labs: Abnormal Lab Results - Last 24 Hours (Table) 08/22/16 08/22/16 08/22/16 Range/Units 11:25 13:45 15:02 WBC (3.8-10.6) k/uL RBC (3.80-5.40) m/uL Hgb (11.4-16.0) gm/dL Hct (34.0-46.0) % Neutrophils # (1.3-7.7) k/uL Lymphocytes # (1.0-4.8) k/uL Monocytes # (0-1.0) k/uL ABG pH 7.13 L* 7.17 L* (7.35-7.45) ABG pCO2 54 H 47 H (35-45) mmHg ABG pO2 110 H (83-108) mmHg ABG HCO3 17 L 17 L (21-25) mmol/L ABG Total CO2 18 L (19-24) mmol/L ABG O2 Saturation (94-97) % Chloride (98-107) mmol/L Carbon Dioxide (22-30) mmol/L Plasma Lactic Acid Steven 0.5 L (0.7-2.0) mmol/L Total Protein (6.3-8.2) g/dL Albumin (3.5-5.0) g/dL Amylase (30-110) U/L 08/22/16 08/22/16 08/22/16 Range/Units 16:15 17:30 19:20 WBC (3.8-10.6) k/uL RBC (3.80-5.40) m/uL Hgb (11.4-16.0) gm/dL Hct (34.0-46.0) % Neutrophils # (1.3-7.7) k/uL Lymphocytes # (1.0-4.8) k/uL Monocytes # (0-1.0) k/uL ABG pH 7.21 L 7.24 L 7.26 L (7.35-7.45) ABG pCO2 (35-45) mmHg ABG pO2 (83-108) mmHg ABG HCO3 17 L 17 L 17 L (21-25) mmol/L ABG Total CO2 18 L (19-24) mmol/L ABG O2 Saturation 98.0 H (94-97) % Chloride (98-107) mmol/L Carbon Dioxide (22-30) mmol/L Plasma Lactic Acid Steven (0.7-2.0) mmol/L Total Protein (6.3-8.2) g/dL Albumin (3.5-5.0) g/dL Amylase (30-110) U/L 08/23/16 08/23/16 Range/Units 04:45 04:45 WBC 13.8 H (3.8-10.6) k/uL RBC 3.17 L (3.80-5.40) m/uL Hgb 10.9 L (11.4-16.0) gm/dL Hct 31.2 L (34.0-46.0) % Neutrophils # 11.4 H (1.3-7.7) k/uL Lymphocytes # 0.6 L (1.0-4.8) k/uL Monocytes # 1.5 H (0-1.0) k/uL ABG pH (7.35-7.45) ABG pCO2 (35-45) mmHg ABG pO2 (83-108) mmHg ABG HCO3 (21-25) mmol/L ABG Total CO2 (19-24) mmol/L ABG O2 Saturation (94-97) % Chloride 114 H (98-107) mmol/L Carbon Dioxide 16 L (22-30) mmol/L Plasma Lactic Acid Steven (0.7-2.0) mmol/L Total Protein 5.2 L (6.3-8.2) g/dL Albumin 2.7 L (3.5-5.0) g/dL Amylase <30 L (30-110) U/L Microbiology - Last 24 Hours (Table) 08/20/16 16:03 Blood Culture - Preliminary Blood No Growth after 48 hours Assessment and Plan Plan: Impression: #1 Abdominal pain secondary to splenic laceration and hematoma. Status post exploratory laparotomy with lysis of adhesions and splenectomy. Postoperative day #1. #2 Anemia secondary to above as a postoperative complication from colonoscopy, status post 2 units of packed red blood cells. Current hemoglobin 10.9. #3 Postoperative hypoxemia requiring mechanical ventilation in the intensive care unit as an expected outcome of surgical procedure. Successfully extubated 08/22/2016 to 3 L/m per nasal cannula. #4 Myocardial infarction, history of. #5 History of anxiety/depression. #6 Chronic and ongoing tobacco dependence. #7 Hyperlipidemia. Plan: The patient was seen and evaluated by Dr. Nation. She is stable from the pulmonary critical care standpoint and could be transferred to the surgical floor today. In the interim, we'll continue with her current medications including bronchodilators, Lovenox for DVT prophylaxis Protonix for GI prophylaxis. Continue antibiotics in the form of Unasyn. We'll continue to follow and make further recommendations based on her clinical status.
--- NOTE | 2016-08-23 11:53 | P.PN ---
Subjective 66-year-old being seen in the intensive care unit by the surgeon this morning. no new events. Patient was extubated yesterday evening. Currently on a nasal cannula keeping a sat greater than 90% on 3 L. Patient states her abdominal discomfort improved less severe pain medication has been effective. Currently vitals are stable heart rate in the 90s temp 97.9. Patient is postop day 1 August 22 exploratory laparotomy with lysis of adhesions and a splenectomy. Done for a hematoma of the spleen and a laceration of the spleen hemoglobin is 10.9 this morning the plan is to transfer the patient from the ICU to the surgical unit Objective - Vital Signs Vital signs: Vital Signs Temp 97.3 F L 08/23/16 11:33 Pulse 90 08/23/16 11:33 Resp 16 08/23/16 11:33 BP 131/70 08/23/16 11:33 Pulse Ox 95 08/23/16 11:33 Intake & Output 08/22/16 08/23/16 08/23/16 18:59 06:59 18:59 Intake Total 3006.237 1300 500 Output Total 2695 1635 450 Balance 311.237 -335 50 Weight 68.9 kg Intake: IV 2350 1300 500 Ampicillin-Sulbactam 3 gm 100 100 In Sodium Chloride 0.9% 100 ml @ 100 mls/hr IVPB Q8HR REVA Rx#:[id number] Magnesium Sulfate-D5w Pmx 100 1 gm In Dextrose/Water 1 100ml.bag @ 100 mls/hr IVPB Q1H REVA Rx#: [id number] Potassium Chloride 10 meq 100 Lidocaine 2% Inj 10 mg In Sodium Chloride 0.9% 100 ml @ 100 mls/hr IV Q1HR REVA Rx#:[id number] Sodium Chloride 0.9% 1, 1100 1200 200 000 ml @ 100 mls/hr IV . Q10H REVA Rx#:[id number] ceFAZolin 2 gm In Sodium 100 Chloride 0.9% 100 ml @ 100 mls/hr IVPB Q8HR REVA Rx#:[id number] Intake, IV Titration 36.237 Amount Propofol 500 mg In Empty 36.237 Bag 1 bag @ Titrate IV . Q0M REVA Rx#:[id number] Blood Product 620 Rc As-1 Unit 310 [id number] Rc As-1 Unit 310 [id number] Output: Drainage 20 Left Abdomen 20 Urine 2195 1615 450 Estimated Blood Loss 500 Other: Voiding Method Indwelling Catheter Indwelling Catheter Bedside Commode ABP, PAP, CO, CI - Last Documented Arterial Blood Pressure 146/71 - Exam Physical exam 66-year-old female resting comfortably in bed awake alert oriented 3 Lungs essentially clear with adequate air movement on 3 L nasal cannula sets the 90s Heart S1-S2 audible and regular denying chest pain Abdomen soft not distended KADE drains in place surgical dressings dry. Indwelling Thibodeaux catheter to be removed no stool Extremities a trace pedal edema - Labs CBC & Chem 7: 08/23/16 04:45 08/23/16 04:45 Labs: Abnormal Lab Results - Last 24 Hours (Table) 08/22/16 08/22/16 08/22/16 Range/Units 13:45 15:02 16:15 WBC (3.8-10.6) k/uL RBC (3.80-5.40) m/uL Hgb (11.4-16.0) gm/dL Hct (34.0-46.0) % Neutrophils # (1.3-7.7) k/uL Lymphocytes # (1.0-4.8) k/uL Monocytes # (0-1.0) k/uL ABG pH 7.17 L* 7.21 L (7.35-7.45) ABG pCO2 47 H (35-45) mmHg ABG pO2 110 H (83-108) mmHg ABG HCO3 17 L 17 L (21-25) mmol/L ABG Total CO2 18 L 18 L (19-24) mmol/L ABG O2 Saturation (94-97) % Chloride (98-107) mmol/L Carbon Dioxide (22-30) mmol/L Plasma Lactic Acid Steven 0.5 L (0.7-2.0) mmol/L Total Protein (6.3-8.2) g/dL Albumin (3.5-5.0) g/dL Amylase (30-110) U/L 08/22/16 08/22/16 08/23/16 Range/Units 17:30 19:20 04:45 WBC (3.8-10.6) k/uL RBC (3.80-5.40) m/uL Hgb (11.4-16.0) gm/dL Hct (34.0-46.0) % Neutrophils # (1.3-7.7) k/uL Lymphocytes # (1.0-4.8) k/uL Monocytes # (0-1.0) k/uL ABG pH 7.24 L 7.26 L (7.35-7.45) ABG pCO2 (35-45) mmHg ABG pO2 (83-108) mmHg ABG HCO3 17 L 17 L (21-25) mmol/L ABG Total CO2 (19-24) mmol/L ABG O2 Saturation 98.0 H (94-97) % Chloride 114 H (98-107) mmol/L Carbon Dioxide 16 L (22-30) mmol/L Plasma Lactic Acid Steven (0.7-2.0) mmol/L Total Protein 5.2 L (6.3-8.2) g/dL Albumin 2.7 L (3.5-5.0) g/dL Amylase <30 L (30-110) U/L 08/23/16 Range/Units 04:45 WBC 13.8 H (3.8-10.6) k/uL RBC 3.17 L (3.80-5.40) m/uL Hgb 10.9 L (11.4-16.0) gm/dL Hct 31.2 L (34.0-46.0) % Neutrophils # 11.4 H (1.3-7.7) k/uL Lymphocytes # 0.6 L (1.0-4.8) k/uL Monocytes # 1.5 H (0-1.0) k/uL ABG pH (7.35-7.45) ABG pCO2 (35-45) mmHg ABG pO2 (83-108) mmHg ABG HCO3 (21-25) mmol/L ABG Total CO2 (19-24) mmol/L ABG O2 Saturation (94-97) % Chloride (98-107) mmol/L Carbon Dioxide (22-30) mmol/L Plasma Lactic Acid Steven (0.7-2.0) mmol/L Total Protein (6.3-8.2) g/dL Albumin (3.5-5.0) g/dL Amylase (30-110) U/L Microbiology - Last 24 Hours (Table) 07/09/17 16:03 Blood Culture - Preliminary Blood No Growth after 48 hours Assessment and Plan Plan: Impression Present on admission severe intractable abdominal pain secondary to a grade 2 splenic laceration and hematoma Intraoperative hematoma of spleen complicating non-spleen procedure Present on admission intractable abdominal pain CAT scan abdomen showed free fluid in the abdomen with a grade 2 splenic injury A recent colonoscopy done 5 days prior done by Dr. Jacob showed no evidence of acute diverticulitis no strictures no polyp no cancer showed mild sigmoid diverticulosis Chronic and ongoing tobacco dependency Anxiety depressive disorder nonspecified History of a prior myocardial infarction Anemia secondary to grade 2 splenic laceration postop complication from a colonoscopy hemoglobin stable Hyperlipidemia 08/22/2016 exploratory laparotomy with lysis of adhesions and a splenectomy for hematoma and laceration of the spleen Postop hypoxemia requiring mechanical ventilation with ICU management successfully extubated August 22 Plan Agree with transferring the patient out of the ICU to the surgical unit Continue postop surgical care Increase activity Encourage the use of incentive spirometer Continue recommendations by infectious disease Dr. Sagastume currently on IV Unasyn Pain control DVT and GI prophylaxis Further recommendations pending The above impression and plan of care have been discussed and directed by signing physician. Pooja Carranza nurse practitioner acting as scribe for signing physician.
[2016-08-23] MEDS: CHOLECALCIFEROL 400 UNIT TAB PO SCH (13:16)
--- NOTE | 2016-08-23 15:38 | CDI ---
In responding to this query, please exercise your independent professional judgment. The [facility] Coding Staff and Clinical Documentation Specialists appreciate your assistance in clarifying documentation, maintaining compliance with coding guidelines, accurately documenting patients condition and capturing severity of illness. The fact that a question is asked does not imply that any particular answer is desired or expected. Communication forms are a method of clarifying documentation and are not made part of the Legal Health Record. Thank you in advance for your clarification. Last Revision, April 2015 Donovan Bruno [address] [facility] [address] Documentation Clarification Form Date: 08/23/2016 2:49:00 PM From: Josephine Martin Admit Date: 08/20/2016 6:27:00 PM Patient Name: Cate Martinez Visit Number: [id number] Discharge Date: Dr. Gary Davila Documentation in the Operative Report included: A significant amount of adhesions of the omentum to the lateral abdominal wall History/Risk factors: Congestive heart failure, CAD, Dementia, Alzheimers Pre-Operative Diagnosis: Hematoma of spleen Postoperative Diagnosis: Hematoma of the spleen, laceration of the spleen Clinical Indicators: abdominal adhesions Treatment: Exploratory laparotomy with lysis of adhesions and spleenectomy In order to capture the severity of condition, please further specify the following: Anatomical site of the body system on which the procedure is performed Greater Omentum Lesser Omentum Other (specify) Please document as an addendum to your operative report in order to capture severity of illness and risk of mortality. FYI: Press F11 to launch patient chart Place X here if this finding has no clinical significance, is not applicable or if you are not able to provide any additional documentation. CJ
--- NOTE | 2016-08-23 22:05 | P.PN ---
Subjective Principal diagnosis: Abdominal pain Pleasant 66-year-old female who has a known history of myocardial infarction, hyperlipidemia, anxiety and depression as well as a history of tobacco use. Was doing relatively well and had a routine colonoscopy on [address] Plascencia. Other than mild sigmoid diverticulosis no significant illnesses were noted. The note is reviewed with no evidence of any difficulties. However several days later she started to develop some abdominal pain. Because of this she did have evaluation and was seen by surgery. Computed tomography scan was requested. This revealed evidence of a splenic hematoma subcapsular nature as well as a splenic laceration. The patient was stable and being monitored. She over then had evidence of some hemodynamic instability required ICU evaluation. The patient then had worsening as was taken to the operative room today for the splenectomy. Due to worsening findings on the computed tomography scan and her hemodynamic instability. The patient is now postoperative and is definitely more stable especially after transfusion. Patient was extubated and transferred to the surgical unit. She' s doing somewhat better. Still has pain. Is utilizing some ice chips and clear liquids. No nausea or emesis. Objective - Vital Signs Vital signs: Vital Signs Temp 98.4 F 08/23/16 20:08 Pulse 96 08/23/16 20:08 Resp 16 08/23/16 20:08 BP 147/76 08/23/16 20:08 Pulse Ox 94 L 08/23/16 20:08 Intake & Output 08/23/16 08/23/16 08/24/16 06:59 18:59 06:59 Intake Total 1300 500 Output Total 1635 450 Balance -335 50 Weight 68.9 kg Intake: IV 1300 500 Ampicillin-Sulbactam 3 gm 100 100 In Sodium Chloride 0.9% 100 ml @ 100 mls/hr IVPB Q8HR REVA Rx#:[id number] Magnesium Sulfate-D5w Pmx 100 1 gm In Dextrose/Water 1 100ml.bag @ 100 mls/hr IVPB Q1H REVA Rx#: [id number] Potassium Chloride 10 meq 100 Lidocaine 2% Inj 10 mg In Sodium Chloride 0.9% 100 ml @ 100 mls/hr IV Q1HR REVA Rx#:[id number] Sodium Chloride 0.9% 1, 1200 200 000 ml @ 100 mls/hr IV . Q10H REVA Rx#:[id number] Output: Drainage 20 Left Abdomen 20 Urine 1615 450 Other: Voiding Method Indwelling Catheter Toilet # Voids 1 ABP, PAP, CO, CI - Last Documented Arterial Blood Pressure 146/71 - Exam 66-year-old female who is intubated minimally sedated with attempts for weaning occurring this morning. Patient appears to be comfortable. HEENT: Anicteric conjunctiva are pink and moist nasal mucosa grossly intact without significant lesions, there is no thrush. No lesions around the endotracheal tube Neck: The neck is supple without significant lymphadenopathy or thyromegaly. Lungs: Good bilateral air entry without significant crackles or wheezing. There is no significant bronchial sounds. There is no egophony or dullness. Heart: Regular rate and rhythm with an audible S1-S2, no S3 no S4. There is no significant murmur click or rub, PMI was nondisplaced. Abdomen: Is directly postoperative period minimal drainage is noted on the surgical dressings. Abdomen is slightly distended, soft but tender on exam. It is not rigid Extremities: The upper extremities have excellent pulses they are symmetric, no significant petechiae or telangiectasia. No splinter hemorrhages were noted. The lower extremities are free from significant edema. The peripheral pulses were 2+ and symmetric. Neuro: Awake alert oriented to person place and time no acute gross focal sensory motor deficits - Labs CBC & Chem 7: 08/23/16 04:45 08/23/16 04:45 Labs: Abnormal Lab Results - Last 24 Hours (Table) 08/23/16 08/23/16 Range/Units 04:45 04:45 WBC 13.8 H (3.8-10.6) k/uL RBC 3.17 L (3.80-5.40) m/uL Hgb 10.9 L (11.4-16.0) gm/dL Hct 31.2 L (34.0-46.0) % Neutrophils # 11.4 H (1.3-7.7) k/uL Lymphocytes # 0.6 L (1.0-4.8) k/uL Monocytes # 1.5 H (0-1.0) k/uL Chloride 114 H (98-107) mmol/L Carbon Dioxide 16 L (22-30) mmol/L Total Protein 5.2 L (6.3-8.2) g/dL Albumin 2.7 L (3.5-5.0) g/dL Amylase <30 L (30-110) U/L Microbiology - Last 24 Hours (Table) 08/20/16 16:03 Blood Culture - Preliminary Blood No Growth after 72 hours Laboratory Results WBC 13.8 k/uL (3.8-10.6) H 08/23/16 04:45 RBC 3.17 m/uL (3.80-5.40) L 08/23/16 04:45 Hgb 10.9 gm/dL (11.4-16.0) L 08/23/16 04:45 Hct 31.2 % (34.0-46.0) L 08/23/16 04:45 MCV 98.6 fL (80.0-100.0) 08/23/16 04:45 MCH 34.3 pg (25.0-35.0) 08/23/16 04:45 MCHC 34.8 g/dL (31.0-37.0) 08/23/16 04:45 RDW 15.3 % (11.5-15.5) 08/23/16 04:45 Plt Count 228 k/uL (150-450) 08/23/16 04:45 Neutrophils % 82 % 08/23/16 04:45 Lymphocytes % 5 % 08/23/16 04:45 Monocytes % 11 % 08/23/16 04:45 Eosinophils % 1 % 08/23/16 04:45 Basophils % 0 % 08/23/16 04:45 Neutrophils # 11.4 k/uL (1.3-7.7) H 08/23/16 04:45 Lymphocytes # 0.6 k/uL (1.0-4.8) L 08/23/16 04:45 Monocytes # 1.5 k/uL (0-1.0) H 08/23/16 04:45 Eosinophils # 0.1 k/uL (0-0.7) 08/23/16 04:45 Basophils # 0.0 k/uL (0-0.2) 08/23/16 04:45 Macrocytosis Slight 08/23/16 04:45 PT 10.6 sec (9.0-12.0) 08/21/16 06:39 INR 1.1 (<1.1) 08/21/16 06:39 APTT 24.5 sec (22.0-30.0) 08/20/16 16:03 Sample Site festus 08/22/16 19:20 ABG pH 7.26 (7.35-7.45) L 08/22/16 19:20 ABG pCO2 38 mmHg (35-45) 08/22/16 19:20 ABG pO2 88 mmHg (83-108) 08/22/16 19:20 ABG HCO3 17 mmol/L (21-25) L 08/22/16 19:20 ABG Total CO2 19 mmol/L (19-24) 08/22/16 17:30 ABG O2 Saturation 98.0 % (94-97) H 08/22/16 19:20 ABG Base Excess -9.4 mmol/L 08/22/16 19:20 FiO2 35 % 08/22/16 19:20 Sodium 142 mmol/L (137-145) 08/23/16 04:45 Potassium 3.5 mmol/L (3.5-5.1) 08/23/16 04:45 Chloride 114 mmol/L (98-107) H 08/23/16 04:45 Carbon Dioxide 16 mmol/L (22-30) L 08/23/16 04:45 Anion Gap 12 mmol/L 08/23/16 04:45 BUN 12 mg/dL (7-17) 08/23/16 04:45 Creatinine 0.77 mg/dL (0.52-1.04) 08/23/16 04:45 Est GFR (MDRD) Af Amer >60 (>60 ml/min/1.73 sqM) 08/23/16 04:45 Est GFR (MDRD) Non-Af >60 (>60 ml/min/1.73 sqM) 08/23/16 04:45 Glucose 89 mg/dL (74-99) 08/23/16 04:45 POC Glucose (mg/dL) 121 mg/dL (75-99) H 08/22/16 09:36 POC Glu [employer] Product Manager ID Gita Ospina 08/22/16 09:36 Plasma Lactic Acid Steven 0.5 mmol/L (0.7-2.0) L 08/22/16 15:02 Calcium 8.4 mg/dL (8.4-10.2) 08/23/16 04:45 Phosphorus 3.6 mg/dL (2.5-4.5) 08/23/16 04:45 Magnesium 1.9 mg/dL (1.6-2.3) 08/23/16 04:45 Total Bilirubin 0.7 mg/dL (0.2-1.3) 08/23/16 04:45 AST 31 U/L (14-36) 08/23/16 04:45 ALT 20 U/L (9-52) 08/23/16 04:45 Alkaline Phosphatase 54 U/L (38-126) 08/23/16 04:45 Total Creatine Kinase 41 U/L (30-135) 08/20/16 16:03 CK-MB (CK-2) 0.7 ng/mL (0.0-2.4) 08/20/16 16:03 CK-MB (CK-2) Rel Index 1.7 08/20/16 16:03 Troponin I <0.012 ng/mL (0.000-0.034) 08/20/16 16:03 Total Protein 5.2 g/dL (6.3-8.2) L 08/23/16 04:45 Albumin 2.7 g/dL (3.5-5.0) L 08/23/16 04:45 Amylase <30 U/L (30-110) L 08/23/16 04:45 Lipase 57 U/L (23-300) 08/23/16 04:45 Urine Color Yellow 08/21/16 02:25 Urine Appearance Clear (Clear) 08/21/16 02:25 Urine pH 7.0 (5.0-8.0) 08/21/16 02:25 Ur Specific [place] >1.050 (1.001-1.035) H 08/21/16 02:25 Urine Protein 1+ (Negative) H 08/21/16 02:25 Urine Glucose (UA) Negative (Negative) 08/21/16 02:25 Urine Ketones Negative (Negative) 08/21/16 02:25 Urine Blood Negative (Negative) 08/21/16 02:25 Urine Nitrite Negative (Negative) 08/21/16 02:25 Urine Bilirubin Negative (Negative) 08/21/16 02:25 Urine Urobilinogen <2.0 mg/dL (<2.0) 08/21/16 02:25 Ur Leukocyte Esterase Negative (Negative) 08/21/16 02:25 Urine RBC 1 /hpf (0-5) 08/21/16 02:25 Urine WBC <1 /hpf (0-5) 08/21/16 02:25 Stool Occult Blood Negative (Negative) 08/20/16 16:45 Blood Type A Positive 08/20/16 16:03 Blood Type Recheck No 08/20/16 16:03 Antibody Screen NEGATIVE 08/20/16 16:03 Crossmatch See Detail 08/20/16 16:03 Spec Expiration Date 08/23/2016 - 2303 08/20/16 16:03 Microbiology 08/20/16 16:03 Blood Blood Culture - Preliminary No Growth after 72 hours Assessment and Plan (1) 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 Was found evidence of a splenic laceration and hematoma. This worsened and the patient became mechanically unstable necessitating a splenectomy. This is now occurred and the patient is in intensive care unit covering. Likely will be extubated later this morning if possible. The patient will need vaccines that ideally will be given in 2 weeks. Given that the patient does seem to be reliable from all the available data it is ideal to be able to wait 2 weeks to give their vaccines in the postsplenectomy status to maximize their response. At that point in time pneumococcal vaccine which would be the Prevnar 13, meningococcal vaccine, and conjugated Hib vaccine should be given. Flu vaccine when available should also be given. The patient will need to go home with a prescription of Augmentin.(Ongoing directions to start antibiotic therapy at onset of fever and contact medical help at that time. She is at risk of sepsis from a capsular organisms now that she has had a splenectomy. The patient will be followed as indicated through her stay. And then can arrange the follow-up for her vaccines as an outpatient at the [facility]. Patient has a mild leukocytosis likely related to the recent procedure, most persons status post splenectomy will have an increase in her baseline what blood cell count, her new steady state will be determined over time. Had severe symptomatic anemia has improved status post a splenectomy and transfusion. Operative findings are discussed with the patient. She had significant scar tissue in the left upper quadrant at the time of the surgery. The adhesions of the spleen to the colon and pancreas and omentum likely explains why the spleen was able to be injured at the time of colonoscopy due to his abnormal proximity by scar tissue. Status: Acute (2) Splenic laceration Status: Acute (3) S/P splenectomy Status: Acute
[2016-08-23 23:53] LABS: Glucose,Whole Blood 122 mg/dL (75-99)
[2016-08-24] MEDS: HYDROmorphone 1 MG/ML 1 ML SYRINGE IVP PRN ×7 (00:24→20:25)
[2016-08-24] MEDS: AMPICILLIN-SULBACTAM 3 GM in SODIUM CHLORIDE 0.9% 100 ML IVPB SCH ×3 (00:25→16:50)
[2016-08-24 06:03] LABS: Glucose,Whole Blood 94 mg/dL (75-99)
[2016-08-24 07:20] LABS: Basophils % (A) 0 %; CH 33.4; CHCM 34.4; Eosinophils # (A) 0.4 k/uL (0-0.7); Eosinophils % (A) 3 %; HCT 30.8 % (34.0-46.0); HGB 10.7 gm/dL (11.4-16.0); Luc # (Auto) 0.24; Luc % (Auto) 2; Lymphocytes # (A) 0.8 k/uL (1.0-4.8); Lymphocytes % (A) 6 %; MCH 34.1 pg (25.0-35.0); MCHC 34.9 g/dL (31.0-37.0); MCV 97.7 fL (80.0-100.0); Mean Platelet Volume 7.9; Monocytes # (A) 1.2 k/uL (0-1.0); Monocytes % (A) 9 %; Neutrophils # (A) 11.6 k/uL (1.3-7.7); Neutrophils % (A) 81 %; RBC 3.15 m/uL (3.80-5.40); RDW 14.8 % (11.5-15.5); WBC 14.3 k/uL (3.8-10.6); WBC (Perox) 13.98
[2016-08-24] MEDS: SERTRALINE 100 MG TAB PO SCH (07:32)
[2016-08-24] MEDS: ENOXAPARIN 40 MG/0.4 ML SYRINGE SQ SCH (07:32)
[2016-08-24] MEDS: PANTOPRAZOLE 40 MG/10 ML VIAL IV SCH ×2 (07:32→20:38)
[2016-08-24 07:33] LABS: ALT 21 U/L (9-52); AST 30 U/L (14-36); Alkaline Phosphatase 75 U/L (38-126); Amylase <30 U/L (30-110); Anion Gap 12 mmol/L; Blood Urea Nitrogen 11 mg/dL (7-17); Calcium 9.1 mg/dL (8.4-10.2); Carbon Dioxide 19 mmol/L (22-30); Chloride 111 mmol/L (98-107); Glucose 89 mg/dL (74-99); Magnesium 2.1 mg/dL (1.6-2.3); Non-African American GFR(MDRD) >60 (>60 ml/min/1.73 sqM); Phosphorous 2.6 mg/dL (2.5-4.5); Potassium 3.3 mmol/L (3.5-5.1); Sodium 142 mmol/L (137-145); Total Bilirubin 0.8 mg/dL (0.2-1.3); Total Protein 5.8 g/dL (6.3-8.2)
[2016-08-24] MEDS: IPRATROPIUM-ALBUTEROL 3 ML NEB INHALATION SCH (07:52)
--- NOTE | 2016-08-24 10:04 | P.PN ---
Subjective Progress note dated 08/24/2016 66-year-old female who is postop day #2 status post exploratory laparotomy splenectomy secondary to splenic laceration lysis of adhesions. The patient's doing relatively well. Was transferred out of the ICU yesterday down to the surgical floor. The patient's feeling well. Pain is well controlled. Breathing is not causing any difficulty. No shortness of breath cough wheezing. No phlegm production. No hemoptysis. No nausea vomiting or diarrhea. Seem to be progressing very nicely. Objective - Vital Signs Vital signs: Vital Signs Temp 97.7 F 08/24/16 07:00 Pulse 84 08/24/16 07:00 Resp 18 08/24/16 07:00 BP 106/64 08/24/16 07:00 Pulse Ox 94 L 08/24/16 07:00 Intake & Output 08/23/16 08/24/16 08/24/16 18:59 06:59 18:59 Intake Total 500 1280 Output Total 450 25 Balance 50 1255 Intake: IV 500 800 Ampicillin-Sulbactam 3 gm 100 In Sodium Chloride 0.9% 100 ml @ 100 mls/hr IVPB Q8HR REVA Rx#:[id number] Magnesium Sulfate-D5w Pmx 100 1 gm In Dextrose/Water 1 100ml.bag @ 100 mls/hr IVPB Q1H REVA Rx#: [id number] Potassium Chloride 10 meq 100 Lidocaine 2% Inj 10 mg In Sodium Chloride 0.9% 100 ml @ 100 mls/hr IV Q1HR REVA Rx#:[id number] Sodium Chloride 0.9% 1, 200 800 000 ml @ 100 mls/hr IV . Q10H REVA Rx#:[id number] Oral 480 Output: Drainage 25 Left Abdomen 25 Urine 450 Other: Voiding Method Toilet Toilet # Voids 1 2 ABP, PAP, CO, CI - Last Documented Arterial Blood Pressure 146/71 - Exam No acute distress, oriented 3. HEENT examination is grossly unremarkable. Mucous membranes are moist. No oral lesions. Neck supple. Full range of motion. No adenopathy thyromegaly or neck vein distention. Cardiovascular examination reveals regular rhythm rate. S1-S2 normal. No S3- S4 or murmur. Lungs are clear breath sounds are equal. No wheezes rhonchi or crackles. Abdomen soft soft. Occasional bowel sounds are noted. No masses or significant tenderness. Extremities are intact. No cyanosis clubbing or edema. Skin without rash. Neurologic examination is brief but nonfocal. - Labs CBC & Chem 7: 08/24/16 06:49 08/24/16 06:49 Labs: Abnormal Lab Results - Last 24 Hours (Table) 08/20/16 08/23/16 08/24/16 Range/Units 16:03 23:51 06:49 WBC (3.8-10.6) k/uL RBC (3.80-5.40) m/uL Hgb (11.4-16.0) gm/dL Hct (34.0-46.0) % Neutrophils # (1.3-7.7) k/uL Lymphocytes # (1.0-4.8) k/uL Monocytes # (0-1.0) k/uL Potassium 3.3 L (3.5-5.1) mmol/L Chloride 111 H (98-107) mmol/L Carbon Dioxide 19 L (22-30) mmol/L POC Glucose (mg/dL) 122 H (75-99) mg/dL Total Protein 5.8 L (6.3-8.2) g/dL Albumin 3.0 L (3.5-5.0) g/dL Amylase <30 L (30-110) U/L Crossmatch See Detail 08/24/16 Range/Units 06:49 WBC 14.3 H (3.8-10.6) k/uL RBC 3.15 L (3.80-5.40) m/uL Hgb 10.7 L (11.4-16.0) gm/dL Hct 30.8 L (34.0-46.0) % Neutrophils # 11.6 H (1.3-7.7) k/uL Lymphocytes # 0.8 L (1.0-4.8) k/uL Monocytes # 1.2 H (0-1.0) k/uL Potassium (3.5-5.1) mmol/L Chloride (98-107) mmol/L Carbon Dioxide (22-30) mmol/L POC Glucose (mg/dL) (75-99) mg/dL Total Protein (6.3-8.2) g/dL Albumin (3.5-5.0) g/dL Amylase (30-110) U/L Crossmatch Microbiology - Last 24 Hours (Table) 08/20/16 16:03 Blood Culture - Preliminary Blood No Growth after 72 hours Assessment and Plan (1) Abdominal pain Status: Acute (2) S/P splenectomy Status: Acute (3) Splenic laceration Status: Acute Plan: Plan dated 08/24/1969 the patient's doing well. We'll continue to follow. The patient should continue on the incentive spirometer to be used one every hour while awake. Medications are reviewed. The critical care standpoint she is doing well. We'll see as needed. No additional recommendations are made. Time with Patient: Less than 30
[2016-08-24 11:51] VITALS: BMI 23.8
[2016-08-24] MEDS: CHOLECALCIFEROL 400 UNIT TAB PO SCH (12:00)
[2016-08-24] MEDS: POTASSIUM CHLORIDE 10 MEQ, LIDOCAINE 2% INJ 10 MG in SODIUM CHLORIDE 0.9% 100 ML IVPB SCH ×2 (13:32→15:25)
[2016-08-24] MEDS: SODIUM CHLORIDE 0.9% 1,000 ML IV SCH (13:33)
--- NOTE | 2016-08-24 16:49 | P.PN ---
Subjective Principal diagnosis: Site was selected exploratory laparotomy for splenic laceration Patient has no complaint of vomiting she's had a regular diet is passing flatus. Minimal amount of drainage from the KADE drain still moderate amount of pain from the incision. Objective - Vital Signs Vital signs: Vital Signs Temp 98.0 F 08/24/16 15:00 Pulse 88 08/24/16 15:00 Resp 16 08/24/16 15:00 BP 136/78 08/24/16 15:00 Pulse Ox 95 08/24/16 15:00 Intake & Output 08/23/16 08/24/16 08/24/16 18:59 06:59 18:59 Intake Total 500 1280 Output Total 450 25 150 Balance 50 1255 -150 Weight 68.9 kg Intake: IV 500 800 Ampicillin-Sulbactam 3 gm 100 In Sodium Chloride 0.9% 100 ml @ 100 mls/hr IVPB Q8HR REVA Rx#:[id number] Magnesium Sulfate-D5w Pmx 100 1 gm In Dextrose/Water 1 100ml.bag @ 100 mls/hr IVPB Q1H REVA Rx#: [id number] Potassium Chloride 10 meq 100 Lidocaine 2% Inj 10 mg In Sodium Chloride 0.9% 100 ml @ 100 mls/hr IV Q1HR REVA Rx#:[id number] Sodium Chloride 0.9% 1, 200 800 000 ml @ 100 mls/hr IV . Q10H REVA Rx#:[id number] Oral 480 Output: Drainage 25 Left Abdomen 25 Urine 450 150 Other: Voiding Method Toilet Toilet Toilet # Voids 1 2 3 ABP, PAP, CO, CI - Last Documented Arterial Blood Pressure 146/71 - EENT Eyes: Present: PERRLA - Cardiovascular Rhythm: regular - Gastrointestinal Gastrointestinal Comment(s): Abdomen is appropriately tender dressing will be taken down today. KADE drain is serous and minimal - Labs CBC & Chem 7: 08/24/16 06:49 08/24/16 06:49 Labs: Abnormal Lab Results - Last 24 Hours (Table) 08/20/16 08/23/16 08/24/16 Range/Units 16:03 23:51 06:49 WBC (3.8-10.6) k/uL RBC (3.80-5.40) m/uL Hgb (11.4-16.0) gm/dL Hct (34.0-46.0) % Neutrophils # (1.3-7.7) k/uL Lymphocytes # (1.0-4.8) k/uL Monocytes # (0-1.0) k/uL Potassium 3.3 L (3.5-5.1) mmol/L Chloride 111 H (98-107) mmol/L Carbon Dioxide 19 L (22-30) mmol/L POC Glucose (mg/dL) 122 H (75-99) mg/dL Total Protein 5.8 L (6.3-8.2) g/dL Albumin 3.0 L (3.5-5.0) g/dL Amylase <30 L (30-110) U/L Crossmatch See Detail 08/24/16 Range/Units 06:49 WBC 14.3 H (3.8-10.6) k/uL RBC 3.15 L (3.80-5.40) m/uL Hgb 10.7 L (11.4-16.0) gm/dL Hct 30.8 L (34.0-46.0) % Neutrophils # 11.6 H (1.3-7.7) k/uL Lymphocytes # 0.8 L (1.0-4.8) k/uL Monocytes # 1.2 H (0-1.0) k/uL Potassium (3.5-5.1) mmol/L Chloride (98-107) mmol/L Carbon Dioxide (22-30) mmol/L POC Glucose (mg/dL) (75-99) mg/dL Total Protein (6.3-8.2) g/dL Albumin (3.5-5.0) g/dL Amylase (30-110) U/L Crossmatch Microbiology - Last 24 Hours (Table) 08/20/16 16:03 Blood Culture - Preliminary Blood No Growth after 72 hours Assessment and Plan (1) Intraoperative hematoma of spleen complicating non-spleen procedure Status: Acute Plan: Is overall doing very well. Await bowel movements. If the KADE drain remained slow the patient's KADE drain may be removed in 48 hours and patient may be discharged home to follow up in clinic in 1 week. Scripts for Augmentin and pain medication will be given today.
[2016-08-25] MEDS: AMPICILLIN-SULBACTAM 3 GM in SODIUM CHLORIDE 0.9% 100 ML IVPB SCH ×4 (00:12→23:16)
[2016-08-25] MEDS: HYDROmorphone 1 MG/ML 1 ML SYRINGE IVP PRN ×3 (00:12→08:47)
[2016-08-25] MEDS: SODIUM CHLORIDE 0.9% 1,000 ML IV SCH ×5 (02:57→18:23)
[2016-08-25 07:01] LABS: Basophils % (A) 0 %; CH 33.4; Eosinophils # (A) 0.9 k/uL (0-0.7); Eosinophils % (A) 8 %; HCT 30.1 % (34.0-46.0); HDW 3.31; HGB 10.6 gm/dL (11.4-16.0); Luc # (Auto) 0.28; Luc % (Auto) 2; Lymphocytes # (A) 0.8 k/uL (1.0-4.8); Lymphocytes % (A) 6 %; MCH 34.8 pg (25.0-35.0); MCHC 35.3 g/dL (31.0-37.0); MCV 98.7 fL (80.0-100.0); Mean Platelet Volume 8.4; Monocytes # (A) 1.4 k/uL (0-1.0); Monocytes % (A) 12 %; Neutrophils # (A) 8.7 k/uL (1.3-7.7); Neutrophils % (A) 72 %; RBC 3.05 m/uL (3.80-5.40); RDW 14.5 % (11.5-15.5); WBC (Perox) 11.81
[2016-08-25 07:20] LABS: Amylase <30 U/L (30-110)
[2016-08-25] MEDS: PANTOPRAZOLE 40 MG/10 ML VIAL IV SCH (07:52)
[2016-08-25] MEDS: ENOXAPARIN 40 MG/0.4 ML SYRINGE SQ SCH (07:52)
--- NOTE | 2016-08-25 08:33 | P.PN ---
Subjective Patient is postop day #3 from a splenectomy. The patient at this time is doing well she has been seen by infectious disease and recommendation was for pneumococcal vaccine meningococcal vaccine and conjugate Hib vaccine. The patient will be discharged home with a prescription for Augmentin secondary to the fact that she is at risk of sepsis from a capsular organisms. The patient at this time is tolerating a diet and doing well. Patient has a KADE drain in place and drainage is approximately 45 mL of serous fluid. Her blood cell count is 12 platelet count 326 Objective - Vital Signs Vital signs: Vital Signs Temp 97.8 F 08/24/16 19:47 Pulse 90 08/24/16 19:47 Resp 16 08/24/16 20:00 BP 153/85 08/24/16 19:47 Pulse Ox 97 08/25/16 07:32 Intake & Output 08/24/16 08/25/16 08/25/16 18:59 06:59 18:59 Intake Total 2560 Output Total 150 225 Balance -150 2335 Weight 68.9 kg 68 kg Intake: IV 1600 Sodium Chloride 0.9% 1, 1600 000 ml @ 100 mls/hr IV . Q10H REVA Rx#:[id number] Oral 960 Output: Drainage 75 Left Abdomen 75 Urine 150 150 Other: Voiding Method Toilet Toilet # Voids 3 2 ABP, PAP, CO, CI - Last Documented Arterial Blood Pressure 146/71 - Constitutional General appearance: Present: average body habitus - Respiratory Respiratory: bilateral: CTA - Cardiovascular Rhythm: regular Heart sounds: normal: S1, S2 - Gastrointestinal Gastrointestinal Comment(s): Incision clean and dry KADE serous drainage General gastrointestinal: Present: normal bowel sounds - Psychiatric Psychiatric: Present: A&O x's 3, appropriate affect, intact judgment & insight - Labs CBC & Chem 7: 08/25/16 06:41 08/24/16 06:49 Labs: Abnormal Lab Results - Last 24 Hours (Table) 08/25/16 08/25/16 Range/Units 06:41 06:41 WBC 12.0 H (3.8-10.6) k/uL RBC 3.05 L (3.80-5.40) m/uL Hgb 10.6 L (11.4-16.0) gm/dL Hct 30.1 L (34.0-46.0) % Neutrophils # 8.7 H (1.3-7.7) k/uL Lymphocytes # 0.8 L (1.0-4.8) k/uL Monocytes # 1.4 H (0-1.0) k/uL Eosinophils # 0.9 H (0-0.7) k/uL Amylase <30 L (30-110) U/L Microbiology - Last 24 Hours (Table) 08/20/16 16:03 Blood Culture - Preliminary Blood No Growth after 96 hours Assessment and Plan Plan: Impression/plan: 1. Patient status post splenectomy stable 2. Continue to advance diet if patient tolerates will probably be discharged home tomorrow 3. Patient to have outpatient vaccination at 2 weeks from splenectomy scripts for Augmentin and pain medication will be provided
[2016-08-25] MEDS: SERTRALINE 100 MG TAB PO SCH (09:00)
[2016-08-25] MEDS ORDERED: ACETAMINOPHEN TAB 500 MG TAB PO PRN ×2 (10:37)
[2016-08-25] MEDS: CHOLECALCIFEROL 400 UNIT TAB PO SCH (11:18)
[2016-08-25] MEDS: POTASSIUM CHLORIDE 10 MEQ, LIDOCAINE 2% INJ 10 MG in SODIUM CHLORIDE 0.9% 100 ML IVPB SCH ×2 (12:13→13:51)
[2016-08-25] MEDS: HYDROcodone/APAP 5-325MG 1 EACH TAB PO PRN ×2 (15:32→21:10)
[2016-08-25] MEDS: PANTOPRAZOLE 40 MG TABLET PO SCH (17:46)
[2016-08-25] MEDS ORDERED: Potassium Replacement Protocol 1 EACH MISC MISCELLANE PRN (17:54)
[2016-08-25] MEDS: POTASSIUM CHLORIDE ER 20 MEQ TAB.ER PO SCH ×3 (18:19→20:03)
[2016-08-26] MEDS: POTASSIUM CHLORIDE ER 20 MEQ TAB.ER PO SCH ×4 (00:05→12:10)
[2016-08-26] MEDS: HYDROcodone/APAP 5-325MG 1 EACH TAB PO PRN ×2 (01:16→08:09)
[2016-08-26] MEDS: SODIUM CHLORIDE 0.9% 1,000 ML IV SCH (01:19)
[2016-08-26 02:50] LABS: Basophils % (A) 0 %; CH 33.1; CHCM 33.8; Eosinophils % (A) 9 %; HCT 29.5 % (34.0-46.0); HDW 3.28; HGB 10.1 gm/dL (11.4-16.0); Luc # (Auto) 0.29; Luc % (Auto) 3; Lymphocytes # (A) 1.2 k/uL (1.0-4.8); Lymphocytes % (A) 11 %; MCH 33.9 pg (25.0-35.0); MCHC 34.4 g/dL (31.0-37.0); MCV 98.5 fL (80.0-100.0); Monocytes # (A) 1.2 k/uL (0-1.0); Monocytes % (A) 11 %; Neutrophils % (A) 66 %; RBC 2.99 m/uL (3.80-5.40); RDW 14.5 % (11.5-15.5); WBC 10.6 k/uL (3.8-10.6); WBC (Perox) 10.18
[2016-08-26] MEDS: ENOXAPARIN 40 MG/0.4 ML SYRINGE SQ SCH (08:10)
[2016-08-26] MEDS: AMPICILLIN-SULBACTAM 3 GM in SODIUM CHLORIDE 0.9% 100 ML IVPB SCH (08:10)
[2016-08-26] MEDS: PANTOPRAZOLE 40 MG TABLET PO SCH (08:11)
[2016-08-26] MEDS: SERTRALINE 100 MG TAB PO SCH (08:11)
--- NOTE | 2016-08-26 10:32 | P.PN ---
Subjective Patient is postop day #4 from a splenectomy. The patient at this time is doing well she has been seen by infectious disease and recommendation was for pneumococcal vaccine meningococcal vaccine and conjugate Hib vaccine. The patient will be discharged home with a prescription for Augmentin secondary to the fact that she is at risk of sepsis from a capsular organisms. The patient at this time is tolerating a diet and doing well. Patient has a KADE drain in place and drainage is approximately 20 mL of serous fluid. Her white blood cell count 10.6 platelet count 336 Objective - Vital Signs Vital signs: Vital Signs Temp 98.1 F 08/26/16 03:14 Pulse 76 08/26/16 03:14 Resp 18 08/26/16 03:14 BP 117/69 08/26/16 03:14 Pulse Ox 96 08/26/16 03:14 Intake & Output 08/25/16 08/26/16 08/26/16 18:59 06:59 18:59 Intake Total 1550 180 Output Total 10 10 Balance -10 1540 180 Intake: IV 1050 Sodium Chloride 0.9% 1, 1050 000 ml @ 100 mls/hr IV . Q10H REVA Rx#:[id number] Oral 500 180 Output: Drainage 10 10 Left Abdomen 10 10 Other: # Voids 3 2 ABP, PAP, CO, CI - Last Documented Arterial Blood Pressure 146/71 - Constitutional General appearance: Present: average body habitus - Respiratory Respiratory: bilateral: CTA - Cardiovascular Rhythm: regular Heart sounds: normal: S1, S2 - Gastrointestinal Gastrointestinal Comment(s): Incision clean and dry General gastrointestinal: Present: normal bowel sounds, soft - Psychiatric Psychiatric: Present: A&O x's 3, appropriate affect, intact judgment & insight - Labs CBC & Chem 7: 08/26/16 02:39 08/26/16 06:41 Labs: Abnormal Lab Results - Last 24 Hours (Table) 08/25/16 08/25/16 08/26/16 Range/Units 16:43 21:03 02:39 RBC 2.99 L (3.80-5.40) m/uL Hgb 10.1 L (11.4-16.0) gm/dL Hct 29.5 L (34.0-46.0) % Monocytes # 1.2 H (0-1.0) k/uL Eosinophils # 1.0 H (0-0.7) k/uL Potassium 2.9 L* 3.3 L (3.5-5.1) mmol/L 08/26/16 08/26/16 Range/Units 02:39 06:41 RBC (3.80-5.40) m/uL Hgb (11.4-16.0) gm/dL Hct (34.0-46.0) % Monocytes # (0-1.0) k/uL Eosinophils # (0-0.7) k/uL Potassium 3.2 L 3.4 L (3.5-5.1) mmol/L Microbiology - Last 24 Hours (Table) 08/20/16 16:03 Blood Culture - Preliminary Blood No Growth after 120 hours Assessment and Plan Plan: Impression/plan: 1. Patient status post splenectomy stable 2. Patient to be discharged home with the drain in place 3. Patient to have outpatient vaccination at 2 weeks from splenectomy scripts for Augmentin and pain medication will be provided 4. Follow-up with Dr. Davila next week
--- NOTE | 2016-08-26 10:34 | P.DS ---
Providers Date of admission: 08/20/16 18:27 Attending physician: Gary Davila Consults: 08/20/16 18:23 Consult Physician Stat Consulting Provider: Mikael Nation Consult Reason/Comments: Intensive care management Do you want consulting provider notified?: Already Contacted 08/21/16 09:27 Consult Physician Urgent Consulting Provider: Dustin Jacob Consult Reason/Comments: splenic bleed Do you want consulting provider notified?: Yes 08/22/16 08:35 Consult Physician Urgent Consulting Provider: Berry Sagastume Consult Reason/Comments: post -spelnectomy vaccination Do you want consulting provider notified?: Yes Primary care physician: Jg Cuenca Patient Condition at Discharge: Stable Plan - Discharge Summary New Discharge Prescriptions: New Amoxic-Pot Clav 875-125Mg [Augmentin 875-125] 1 tab PO Q12HR #60 tablet HYDROcodone/APAP 5-325MG [[place] 5-325] 1 tab PO Q6HR PRN #30 tab PRN Reason: Pain No Action Sertraline [Zoloft] 100 mg PO DAILY Cholecalciferol [Vitamin D3] 400 unit PO DAILY LORazepam [Ativan] 0.5 mg PO DAILY PRN PRN Reason: Anxiety Discharge Medication List Cholecalciferol [Vitamin D3] 400 unit PO DAILY 06/01/16 [History] Sertraline [Zoloft] 100 mg PO DAILY 06/01/16 [History] LORazepam [Ativan] 0.5 mg PO DAILY PRN 08/23/16 [History] Amoxic-Pot Clav 875-125Mg [Augmentin 875-125] 1 tab PO Q12HR #60 tablet [Rx] HYDROcodone/APAP 5-325MG [[place] 5-325] 1 tab PO Q6HR PRN #30 tab 08/24/16 [Rx] Follow up Appointment(s)/Referral(s): Gary Davila MD [STAFF PHYSICIAN] - 1 Week Kiel Cuenca MD [Primary Care Provider] - 1-2 days Berry Sagastume MD [STAFF PHYSICIAN] - 1 Week Dunia Paul PT [Physical Therapist] - 1 Week [facility] Visiting Nurse, [NON-STAFF] - Activity/Diet/Wound Care/Special Instructions: Teach drain care Do not drive until seen by Dr. Davila No heavy lifting Discharge Disposition: HOME SELF-CARE
[2016-08-26 10:39] VITALS: BP 122/82; PULSE 94; RESP 15; TEMP 98
--- NOTE | 2016-09-01 12:21 | CDI ---
In responding to this query, please exercise your independent professional judgment. The [facility] Coding Staff and Clinical Documentation Specialists appreciate your assistance in clarifying documentation, maintaining compliance with coding guidelines, accurately documenting patients condition and capturing severity of illness. The fact that a question is asked does not imply that any particular answer is desired or expected. Communication forms are a method of clarifying documentation and are not made part of the Legal Health Record. Thank you in advance for your clarification. Last Revision, April 2015 Donovan Bruno [address] [facility] [place] [address] Documentation Clarification Form Date: 08/23/2016 2:49:00 PM From: Josephine Martin Admit Date: 08/20/2016 6:27:00 PM Patient Name: Cate Martinez Visit Number: [id number] Discharge Date: Dr. Gary Davila Documentation in the Operative Report included: A significant amount of adhesions of the omentum to the lateral abdominal wall History/Risk factors: Congestive heart failure, CAD, Dementia, Alzheimers Pre-Operative Diagnosis: Hematoma of spleen Postoperative Diagnosis: Hematoma of the spleen, laceration of the spleen Clinical Indicators: abdominal adhesions Treatment: Exploratory laparotomy with lysis of adhesions and spleenectomy In order to capture the severity of condition, please further specify the following: Anatomical site of the body system on which the procedure is performed Greater Omentum Lesser Omentum Other (specify) Please document as an addendum to your operative report in order to capture severity of illness and risk of mortality. FYI: Press F11 to launch patient chart:::PLEASE SEE ADDENDUM On the operative note Place X here if this finding has no clinical significance, is not applicable or if you are not able to provide any additional documentation. CJ
== END 2016-08-26 13:34 | disposition home or self-care (01) | DRG 907 ==
LOC: EC 15:35 → 6ICU 18:27 → 3SUR 08-23 11:29
PROVIDERS: ADMIT Surgery; ATTEND Surgery
PROC: 0DNT0ZZ (ICD-10-PCS; principal; 2016-08-20)
PROC: 07TP0ZZ Resection of Spleen, Open Approach (ICD-10-PCS; principal; 2016-08-20)
PROC: 0DNS0ZZ (ICD-10-PCS; principal; 2016-08-20)
DX: D78.32 Postprocedural hematoma of the spleen following other procedure (principal); S36.031A Moderate laceration of spleen, initial encounter; D62 Acute posthemorrhagic anemia; J98.11 Atelectasis; F32.9 Major depressive disorder, single episode, unspecified; E78.5 Hyperlipidemia, unspecified; D72.829 Elevated white blood cell count, unspecified; Y83.8 Other surgical procedures as the cause of abnormal reaction of the patient, or of later complication, without mention of misadventure at the time of the procedure; F17.200 Nicotine dependence, unspecified, uncomplicated; F41.9 Anxiety disorder, unspecified; I25.2 Old myocardial infarction; K57.30 Diverticulosis of large intestine without perforation or abscess without bleeding; R09.02 Hypoxemia; Z79.899 Other long term (current) drug therapy; Z80.3 Family history of malignant neoplasm of breast; Z82.0 Family history of epilepsy and other diseases of the nervous system; Z82.49 Family history of ischemic heart disease and other diseases of the circulatory system; Z83.3 Family history of diabetes mellitus; Z96.652 Presence of left artificial knee joint
CPT/HCPCS: 36415; 71010; 74000; 74177; 80048; 80053; 81001; 82150; 82272; 82550; 82553; 82805; 83605; 83690; 83735; 84100; 84132; 84484; 85025; 85027; 85610; 85730; 86850; 86900; 86901; 86920; 87040; 88305; 93005; 94002; 94640; 94760; 96361; 96374; 96375; 99291

== ENCOUNTER → 2016-09-01 | Outpatient (CLI) | payer MEDICARE ==
[~2016-09-01] MED LIST: HAEMOPH B POLY CONJ-TET TOX/PF 10 MCG/0.5 ML VIAL IM ONE; MENING VAC A,C,Y,W-135 DIP/PF 4 MCG/0.5 ML VIAL IM ONE
[2016-09-01 13:57] VITALS: BP 127/71; PULSE 74; RESP 16; TEMP 97.6
== END | disposition home or self-care (01) ==
LOC: PROCWHC3 13:10
PROVIDERS: ATTEND Internal Medicine Infectious Disease
DX: S36.039A Unspecified laceration of spleen, initial encounter (principal); Z90.81 Acquired absence of spleen
CPT/HCPCS: 90471; 90472; 90648; 90734

== ENCOUNTER → 2017-05-25 | Outpatient (CLI) | payer MEDICARE ==
--- NOTE | 2017-05-29 09:08 | MM ---
Reason for exam: screening (asymptomatic). Last mammogram was performed 1 year and 6 months ago. History: Patient is postmenopausal. Family history of premenopausal breast cancer in sister at age 62. Benign US right core biopsy of the right breast, September 22, 2004. Excisional biopsy of the left breast. Physical Findings: A clinical breast exam by your physician is recommended on an annual basis and results should be correlated with mammographic findings. MG Screening Mammo w CAD Bilateral CC and MLO view(s) were taken. Prior study comparison: November 16, 2015, mammogram, performed at [facility]. October 06, 2013, bilateral MG screening mammo w CAD. October 04, 2012, bilateral digital screening mammo w/CAD. The breast tissue is heterogeneously dense. This may lower the sensitivity of mammography. Previous mammotome biopsy in the right breast. No significant changes when compared with prior studies. ASSESSMENT: Negative, BI-RAD 1 RECOMMENDATION: Routine screening mammogram of both breasts in 1 year.
== END | disposition home or self-care (01) ==
LOC: RADMAMWWP 11:33
PROVIDERS: ATTEND Family Medicine
DX: Z12.31 Encounter for screening mammogram for malignant neoplasm of breast (principal)
CPT/HCPCS: 77067

== ENCOUNTER → 2020-01-27 | Outpatient (CLI) | payer MEDICARE ==
--- NOTE | 2020-01-27 13:35 | MM ---
Reason for exam: screening (asymptomatic). Last mammogram was performed 2 years and 8 months ago. History: Patient is postmenopausal. Family history of premenopausal breast cancer in sister at age 62. Benign US right core biopsy of the right breast, September 22, 2004. Excisional biopsy of the left breast. Physical Findings: A clinical breast exam by your physician is recommended on an annual basis and results should be correlated with mammographic findings. MG 3D Screening Mammo W/Cad Bilateral CC and MLO view(s) were taken. Prior study comparison: May 25, 2017, bilateral MG screening mammo w CAD. November 16, 2015, mammogram, performed at [facility]. The breast tissue is heterogeneously dense. This may lower the sensitivity of mammography. There are benign appearing round calcifications bilaterally. Previous mammotome biopsy in the right breast. Asymmetric breast tissue in the left breast, stable. There is no discrete abnormality. ASSESSMENT: Benign, BI-RAD 2 RECOMMENDATION: Routine screening mammogram of both breasts in 1 year.
== END | disposition home or self-care (01) ==
LOC: RADMAMWWP 09:45
PROVIDERS: ATTEND Family Medicine
DX: Z12.31 Encounter for screening mammogram for malignant neoplasm of breast (principal)
CPT/HCPCS: 77063; 77067

== ENCOUNTER → 2020-01-28 | Outpatient (CLI) | payer MEDICARE ==
--- NOTE | 2020-01-28 14:30 | BD ---
EXAMINATION TYPE: Axial Bone Density DATE OF EXAM: 01/28/2020 COMPARISON: NONE CLINICAL HISTORY: 69 YR OLD FEMALE....ICD-10 CODE: Z78.0 MENOPAUSAL Height: 66.3 Weight: 159 FRAX RISK QUESTIONS: Glucocorticoids (More than 3mos): YES (Ex: prednisone, prednisolone, methylprednisolone, dexamethasone, and hydrocortisone). History of Fracture in Adulthood: YES Secondary Osteoporosis: YES 3. Menopause before 45: YES, AT 44 Current Tobacco Use: YES RISK FACTORS HISTORY OF: HX OF GREAT TOE FX AN ADULT, LT HAND THUMB ADULT Surgery to Spine L3 L4 AND L5 FUSION WITH RODS Postmenopausal woman: YES, AT AGE 44 YRS OLD Hyperparathyroidism: NO Adrenal Insufficiency: NO MEDICATIONS: Prednisone or other steroids: YES, FOR COPD...FOR ABOUT 2-3 YRS Additional Medications: ZOLOFT, ATIVAN, STATIN FOR CHOLESTEROL, VIT D AND CALCIUM Additional History: TKR..LT KNEE, CHOLESTEROL, OSTEOARTHRITIS EXAM MEASUREMENTS: Bone mineral densitometry was performed using the [employer] System. Bone mineral density as measured about the Lumbar spine is: NO SPINE SCAN.....RODS AND SURGERY TO LUMBAR SPINE Bone mineral density about the R hip (g/cm2): 0.991 Bone mineral density about the L hip (g/cm2): 0.956 T Score values are as follows: -----R Neck: -0.2 -----L Neck: -0.9 -----R Total: -0.1 -----L Total: -0.4 Bone mineral density BASELINE STUDY TODAY FRAX%s: THERE IS A 21.3% CHANCE FOR A MAJOR OSTEOPOROTIC FX AND A 3.5% FOR HIP.......PROBABILITY FO R FX IN 10 YRS TIME Bone mineral density about the L Wrist (g/cm2): 0.533 T Score values are as follows: -----Dist. R+U: 0.0 -----Prox. R+U: -1.3 -----Radius total: -1.9 Bone mineral density BASELINE STUDY IMPRESSION: Osteopenia NOTE: T-SCORE=SD OF THE YOUNG ADULT MEAN.
== END | disposition home or self-care (01) ==
LOC: RADBDWWP 08:30
PROVIDERS: ATTEND Family Medicine
DX: M85.80 Other specified disorders of bone density and structure, unspecified site (principal); Z78.0 Asymptomatic menopausal state
CPT/HCPCS: 77080

== ENCOUNTER 2021-06-29 19:45 | Emergency (ER) | payer MEDICARE ==
[2021-06-29 20:15] VITALS: TEMP 99.3
[2021-06-29] MEDS ORDERED: ACETAMINOPHEN TAB 500 MG TAB PO STA (23:13)
--- NOTE | 2021-06-29 23:13 | ED ---
General Adult HPI - General Chief complaint: Upper Respiratory Infection Stated complaint: Allergic Reaction to meds Time Seen by Provider: 06/29/21 22:50 Source: patient, family, RN notes reviewed, old records reviewed Limitations: no limitations - History of Present Illness Initial comments: 71-year-old female, alert and oriented 4, presents to the emergency room with 3 family members complaining of cough, body aches, congestion and headaches that started last night. Patient states that she took aspirin but does not have any Tylenol or Motrin at home. She has not been vaccinated against coronavirus. -: days(s) (1) Location: head Radiation: non-radiation Severity scale (1-10): 10 Quality: aching Consistency: constant Improves with: none Associated Symptoms: cough, fever/chills, headaches, malaise, other (body aches, congestion) Treatments Prior to Arrival: Aspirin - Related Data Home Medications Medication Instructions Recorded Confirmed Cholecalciferol [Vitamin D3 (10 400 unit PO DAILY 06/01/16 09/01/16 Mcg = 400 Iu)] Sertraline [Zoloft] 100 mg PO DAILY 06/01/16 09/01/16 LORazepam [Ativan] 0.5 mg PO DAILY PRN 08/23/16 09/01/16 Previous Rx's Medication Instructions Recorded Amoxic-Pot Clav 875-125Mg 1 tab PO Q12HR #60 tablet 08/24/16 [Augmentin 875-125] HYDROcodone/APAP 5-325MG [[place] 1 tab PO Q6HR PRN #30 tab 08/24/16 5-325] Allergies Allergy/AdvReac Type Severity Reaction Status Date / Time levofloxacin [From Levaquin] Allergy Itching Verified 06/29/21 20:15 codeine AdvReac MIGRAINE Verified 06/29/21 20:15 Review of Systems ROS Statement: Those systems with pertinent positive or pertinent negative responses have been documented in the HPI. ROS Other: All systems not noted in ROS Statement are negative. Past Medical History Past Medical History: Hyperlipidemia, Hypertension, Myocardial Infarction ([place]), Osteoarthritis (OA) Additional Past Medical History / Comment(s): TROUBLE SWALLOWING Last Myocardial Infarction Date:: 2010 History of Any Multi-Drug Resistant Organisms: None Reported Past Surgical History: Back Surgery, Hernia Repair, Joint Replacement Additional Past Surgical History / Comment(s): left knee replacement 2003, fusion of L3-L4-L5 from broken back, tubal ligation , tendon release right elbow ,BACK SURGERY X3,, splenectomy Past Anesthesia/Blood Transfusion Reactions: No Reported Reaction Past Psychological History: Anxiety, Depression Smoking Status: Current every day smoker Past Alcohol Use History: Occasional Past Drug Use History: Marijuana - Past Family History Mother Family Medical History: Diabetes Mellitus Additional Family Medical History / Comment(s): alzheimers Sister(s) Family Medical History: Cancer Additional Family Medical History / Comment(s): breast cancer Brother(s) Family Medical History: Renal Disease Additional Family Medical History / Comment(s): kidney failure General Exam Limitations: no limitations General appearance: alert, in no apparent distress Head exam: Present: atraumatic Eye exam: Present: normal appearance, PERRL, EOMI. Absent: scleral icterus, nystagmus, periorbital swelling ENT exam: Present: normal exam, normal oropharynx, mucous membranes moist Neck exam: Present: normal inspection, full ROM. Absent: tenderness, meningismus Respiratory exam: Present: normal lung sounds bilaterally. Absent: respiratory distress, accessory muscle use Cardiovascular Exam: Present: tachycardia GI/Abdominal exam: Present: soft. Absent: distended, tenderness Extremities exam: Present: normal capillary refill. Absent: pedal edema Back exam: Absent: tenderness, CVA tenderness (R), CVA tenderness (L) Neurological exam: Present: alert, oriented X3 Psychiatric exam: Present: normal affect, normal mood Skin exam: Present: warm, dry, normal color. Absent: cyanosis, diaphoretic, petechiae, pallor Course Vital Signs 06/29/21 06/29/21 20:10 23:34 Temperature 99.3 F Pulse Rate 115 H 104 H Respiratory 20 18 Rate Blood Pressure 129/77 125/82 O2 Sat by Pulse 95 97 Oximetry Medical Decision Making - Medical Decision Making Patient presents with 1 day of cough, body aches, and headache. She is covid positive. She has not been vaccinated. She was offered monoclonal antibodies and refused. I did explain to the patient that she is a good candidate for monoclonal antibody infusion and she can return to the ER and receive these antibiotics within 10 days of symptom onset. She states that she does not want them at this time. She will speak with Dr. Cuenca and she will return if she changes her mind. Vital signs are stable. She was given Tylenol for fever and discomfort. She was encouraged to take vitamin C, vitamin D, zinc and increase her fluid intake. Case discussed with Dr. Juares - Lab Data Lab Results 06/29/21 06/29/21 Range/Units 20:18 20:18 Coronavirus (PCR) Detected A (Not Detectd) Influenza Type A RNA Not Detected (Not Detectd) Influenza Type B (PCR) Not Detected (Not Detectd) Disposition Clinical Impression: COVID-19 Disposition: HOME SELF-CARE Condition: Good Instructions (If sedation given, give patient instructions): Upper Respiratory Infection (ED), COVID-19 (Coronavirus Disease 2019) (ED) Additional Instructions: Take vitamin C, vitamin D and zinc to support immune health. Take Tylenol and or Motrin as needed for any body aches or fevers. Increase your fluid intake. You can get the monoclonal antibodies infusion within 10 days of symptom onset. If you change your mind and opt to get the infusion you can return to the emergency room. You can also return to the emergency room with any new or concerning symptoms including difficulty breathing, chest pain or other worsening or concerning symptoms. Quarantine for 10 days from symptom onset. If you have no symptoms after day 5 you can go into public with just a mask. Is patient prescribed a controlled substance at d/c from ED?: No Referrals: Kiel Cuenca MD [Primary Care Provider] - 1-2 days Time of Disposition: 23:13
[2021-06-29 23:34] VITALS: BP 125/82; PULSE 104; RESP 18
== END 2021-06-29 23:38 | disposition home or self-care (01) ==
LOC: EC 19:45
DX: U07.1 COVID-19 (principal); I10 Essential (primary) hypertension; F17.200 Nicotine dependence, unspecified, uncomplicated; Z88.1 Allergy status to other antibiotic agents; Z88.5 Allergy status to narcotic agent
CPT/HCPCS: 87502; 87635; 99284

== ENCOUNTER → 2021-11-18 | Outpatient (CLI) | payer MEDICARE ==
--- NOTE | 2021-11-18 16:24 | MR ---
EXAMINATION TYPE: MR knee RT wo con DATE OF EXAM: 11/18/2021 COMPARISON: Outside right knee x-rays October 25, 2021 HISTORY: RIGHT KNEE PAIN with locking and swelling for years. TECHNIQUE: Multiplanar, multisequence imaging of the right knee is performed without IV contrast. FINDINGS: MEDIAL MENISCUS: Medial extrusion medial meniscus with diffuse increased signal centered posterior ho rn and body likely abutting the inferior articular surface. LATERAL MENISCUS: Anterior and posterior horns are intact without tear. CRUCIATE LIGAMENTS: The anterior and posterior cruciate ligaments are intact and unremarkable. COLLATERAL LIGAMENTS: The medial collateral ligament and lateral collateral ligament complex are inta ct. Increased fluid signal surrounds the medial collateral ligament particularly the distal aspect. EXTENSOR MECHANISM: Visualized quadriceps and patellar tendons are intact. EFFUSION: No significant suprapatellar joint effusion. POPLITEAL CYST: No popliteal/swanson cyst. There is large cyst extending medial to the popliteal fossa and along the deeper aspects appears to be originating near the posterior knee joint. TRICOMPARTMENT SPACES: Moderate to severe narrowing with mild spurring patellofemoral compartment. Mo [id number] narrowing with mild to moderate spurring medial tibial femoral compartment. CARTILAGE: Chondromalacia patella with cartilaginous loss along the posterior patellar pole. Signific ant with areas of Full-thickness cartilaginous loss medial tibiofemoral compartment. BONE MARROW SIGNAL: Heterogeneous diminished T1 and increased T2 signal medial tibial plateau. Focal 2.9 cm in length intramedullary lesion proximal tibial metaphysis of low T1 and T2 signal is ov al in orientation without definitive corresponding lesion seen on plain films. No extension to the co rtex or bony destruction seen. OTHER: No additional significant abnormality is appreciated. IMPRESSION: 1. Suspected full-thickness tear medial meniscus involving central body and posterior horn. 2. Tricompartment degenerative changes with moderate to advanced findings medial tibiofemoral compart ment noted as detailed above. 3. Mild MCL sprain injury. 4. Moderate size Multi septated cyst posteriorly probable synovial cyst. 5. Roughly 3.0 cm intramedullary lesion proximal tibial metaphysis medially of uncertain etiology fav ors nonaggressive etiology based on MRI appearance.
== END | disposition home or self-care (01) ==
LOC: RADMRIMAIN 12:58
PROVIDERS: ATTEND Orthopaedic Surgery
DX: M25.561 Pain in right knee (principal)

== ENCOUNTER → 2022-12-28 | Outpatient (CLI) | payer MEDICARE ==
--- NOTE | 2023-01-01 12:35 | BD ---
EXAMINATION TYPE: Axial Bone Density DATE OF EXAM: 12/28/2022 CLINICAL HISTORY: 72 years old Female. ICD-10 CODE: M89.9 DISORDER OF BONE Height: 66in Weight: 157lb FRAX RISK QUESTIONS: Glucocorticoids (More than 3mos): yes (Ex: prednisone, prednisolone, methylprednisolone, dexamethasone, and hydrocortisone). History of Fracture in Adulthood: yes Secondary Osteoporosis: 3. Menopause before 45: yes Current Tobacco Use: yes RISK FACTORS HISTORY OF: Spine Fracture: yes, lumbar When: 1996 History of Wrist Fracture: yes When: 2022 Surgery to Spine/Hip(right/left)/Wrist (right/left): lumbar fusion Active: yes Postmenopausal woman: yes Frequent falls: yes Poor Health: fair MEDICATIONS: Prednisone or other steroids: yes Additional Medications: calcium with vitamin d Additional History: EXAM MEASUREMENTS: Bone mineral densitometry was performed using the [employer] System. Bone mineral density about the R hip (g/cm2): 0.953 Bone mineral density about the L hip (g/cm2): 0.899 T Score values are as follows: -----R Neck: -0.8 -----L Neck: -1.1 -----R Total: -0.4 -----L Total: -0.9 Z Score values are as follows: -----R Neck: 0.8 -----L Neck: 0.4 -----R Total: 0.9 -----L Total: 0.5 Bone mineral density has: Decreased -4.8% since study of: 01-28-2020 FRAX%s: The graph provided illustrates a 22.9% chance for a major osteoporotic fx and a 5.1% chance f or the hips probability for fx in 10 years time. IMPRESSION: Osteopenia (T Score between -2.5 and -1). There is slightly increased risk of fracture and the patient may be considered for treatment. Re-Screen 2-5 years. NOTE: T-SCORE=SD OF THE YOUNG ADULT MEAN.
== END | disposition home or self-care (01) ==
LOC: RADBDWWP 08:57
PROVIDERS: ATTEND Family Medicine
DX: M85.852 Other specified disorders of bone density and structure, left thigh (principal); Z78.0 Asymptomatic menopausal state
CPT/HCPCS: 77080